=== PATIENT | female | born 1950 | race Caucasian/White ===

== ENCOUNTER 2017-10-27 07:15 | Day surgery (SDC) | payer MEDICARE, MEDICAID ==
[~2017-10-27 07:15] MED LIST: Dextrose 5%-0.45% NaCl 1,000 ML IV SCH; Midazolam 1 MG/ML 2 ML SDV ONE; Sodium Chloride 0.9% 10 ML Syringe FLUSH PRN; fentaNYL 100 MCG/2 ML SDV ONE
[2017-10-27] MEDS ORDERED: Midazolam 1 MG/ML 2 ML SDV IV ONE ×11 (07:16→08:41)
[2017-10-27] MEDS ORDERED: fentaNYL 100 MCG/2 ML SDV IV ONE ×5 (07:16→08:25)
[2017-10-27] MEDS ORDERED: Midazolam 1 MG/ML 2 ML SDV ONE (08:55)
--- NOTE | 2017-10-27 11:09 | OR ---
DATE: 10/27/2017 PROCEDURE: Incomplete colonoscopy. INSTRUMENTS USED: 1. PCF-H180 AL Olympus video colonoscope. 2. GIF-Q180 Olympus panendoscope. PREMEDICATIONS: Fentanyl 150 mcg intravenous, Versed 7 mg intravenous. Nasal O2 cannula. The procedure was done under pulse oximetry, BP recording, and cardiac monitoring. INDICATION: The patient with recent diarrhea, previous incomplete colonoscopy due to adhesions. Colonoscopic examination is done for detection of any polypoid lesions and removal, endoscopic hemostasis therapy if needed. DESCRIPTION OF PROCEDURE: Initial rectal exam showed external hemorrhoidal tags. Rigid anoscopy was normal. The colonoscope, PCF-H180 AL, was passed up to the area of distal descending colon. There marked deformity was noted preventing further advancement to visualize the proximal areas. No polyp or tumor mass identified in the visualized areas. No vascular ectasia. No large isolated ulcerations seen. No evidence of diffuse inflammatory bowel disease in the form of friability, contact bleeding, or ulcerations. The colonoscope was withdrawn, and GIF-Q180 Olympus panendoscope was introduced. The scope again could not be passed beyond distal descending colon due to significant deformity. No bleeding was noted from any of the visualized areas at the completion of examination. IMPRESSION: External hemorrhoids. The patient tolerated the procedure well. [facility] /[id number]
[2017-10-27 13:14] VITALS: BP 117/66
== END 2017-10-28 10:30 | disposition home or self-care (01) ==
LOC: DL.ENDO 07:15
PROVIDERS: ATTEND Internal Medicine Gastroenterology
DX: K64.4 Residual hemorrhoidal skin tags (principal); F41.1 Generalized anxiety disorder; F32.9 Major depressive disorder, single episode, unspecified; G89.4 Chronic pain syndrome; E11.9 Type 2 diabetes mellitus without complications; E78.5 Hyperlipidemia, unspecified; E03.9 Hypothyroidism, unspecified; M81.0 Age-related osteoporosis without current pathological fracture; E66.9 Obesity, unspecified; Z68.33 Body mass index [BMI] 33.0-33.9, adult; Z79.4 Long term (current) use of insulin; Z79.82 Long term (current) use of aspirin; Z79.891 Long term (current) use of opiate analgesic; Z79.899 Other long term (current) drug therapy; Z88.0 Allergy status to penicillin; Z88.8 Allergy status to other drugs, medicaments and biological substances
CPT/HCPCS: 45330; J2250; J3010; J7042

== ENCOUNTER 2017-12-13 09:09 | Observation (INO) | payer MEDICARE, MEDICAID ==
[~2017-12-13 09:09] MED LIST changes: +Aspirin 81 MG Tab.Chew PO ONE; -Dextrose 5%-0.45% NaCl 1,000 ML IV SCH; -Midazolam 1 MG/ML 2 ML SDV ONE; -Sodium Chloride 0.9% 10 ML Syringe FLUSH PRN; -fentaNYL 100 MCG/2 ML SDV ONE
--- NOTE | 2017-12-13 09:09 | EDM.PDOC ---
ED HPI GENERAL MEDICAL PROBLEM - General Stated Complaint: CRUSCHING CHEST PAIN Time Seen by Provider: 12/13/17 09:00 Source of Information: Reports: Patient History Limitations: Reports: No Limitations - History of Present Illness INITIAL COMMENTS - FREE TEXT/NARRATIVE: This 67 yo female patient reports to the ED with chest pain. The patient reports her symptoms started at about 0300 this morning. The patient reports she has a heaviness in her chest with sharp pains going to her posterior back ( near where her bra would snap) with deep breaths. The patient reports she lives in an assisted care center due to her diabetes. The patient reports she has had several fractures of her back, but today's symptoms seem to be much worse than normal. Onset: Today Onset Date: 12/13/17 Onset Time: 03:00 Duration: Constant, Heavy, Intermittent (sharp pains to her back with breathing) Location: Reports: Chest (heaviness), Back (sharp pains) Quality: Reports: Dull ("heaviness" to chest), Stabbing (in back) Severity: Severe Improves with: Reports: Rest Worsens with: Reports: Breathing, Movement Context: Reports: Other Associated Symptoms: Reports: Chest Pain Middle Chest Pain Score (Numeric/FACES): 8 - Related Data Allergies Allergy/AdvReac Type Severity Reaction Status Date / Time amoxicillin trihydrate Allergy Diarrhea Verified 12/13/17 09:22 [From Augmentin] potassium clavulanate Allergy Diarrhea Verified 12/13/17 09:22 [From Augmentin] lisinopril AdvReac Cough Verified 12/13/17 09:22 potassium AdvReac Diarrhea Verified 12/13/17 09:22 Ybkhvrh-Vpc-Nwd Reductase AdvReac Abdominal Verified 12/13/17 09:22 Inhibitor Pain Home Meds: Home Meds Gabapentin 900 mg PO TID 01/09/14 [History] Levothyroxine 100 mcg PO ACBRK 01/09/14 [History] Losartan [Cozaar] 12.5 mg PO DAILY 01/09/14 [History] traZODone 50 - 100 mg PO BEDTIME 01/09/14 [History] Aspirin [Ecotrin] 81 mg PO DAILY 06/01/16 [History] Docusate Sodium/Sennosides [Senna Plus] 1 tab PO BID PRN 06/01/16 [History] Insulin Glarg,Human.Rec.Analog [Lantus Solostar] 28 unit SUBCUT BEDTIME [History] Insulin Aspart [NovoLOG] 10 units SQ ACLUNCH 10/27/17 [History] Insulin Aspart [NovoLOG] 12 units SQ ACLUNCH 10/27/17 [History] Insulin Aspart [NovoLOG] 15 units SQ ACBREAKFAST 10/27/17 [History] Insulin Glarg,Human.Rec.Analog [Lantus] 10 units SQ BID 10/27/17 [History] Meloxicam [Mobic] 7.5 mg PO DAILY 10/27/17 [History] Montelukast [Singulair] 10 mg PO DAILY 10/27/17 [History] Morphine [MS Contin] 45 mg PO Q8HR 10/27/17 [History] Venlafaxine [Effexor] 112.5 mg PO DAILY 10/27/17 [History] Docusate Sodium [Colace] 100 mg PO BID 12/13/17 [History] Famotidine 20 mg PO DAILY 12/13/17 [History] L.acidoph,Paracasei, B.lactis [Probiotic] 1 cap PO DAILY 12/13/17 [History] Triamcinolone Acetonide [Triamcinolone Acetonide 0.1% Crm] 1 gm TOP BEDTIME [History] oxyCODONE 5 mg PO Q4H PRN 12/13/17 [History] Past Medical History HEENT History: Reports: Impaired Vision Other HEENT History: Glasses Cardiovascular History: Reports: None Respiratory History: Reports: None Gastrointestinal History: Reports: Chronic Constipation Genitourinary History: Reports: None Other Genitourinary History: incomplete emptying of the bladder. Needs to go twice for complete emptying. 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 lower back fracture Neurological History: Reports: Migraines, Neuropathy, Diabetic Psychiatric History: Reports: Anxiety, Depression Endocrine/Metabolic History: Reports: Diabetes, Type I, Hypothyroidism, Osteoporosis Hematologic History: Reports: None Immunologic History: Reports: None Oncologic (Cancer) History: Reports: None Dermatologic History: Reports: None - Infectious Disease History Infectious Disease History: Reports: Chicken Pox, Measles, Mumps, Pertussis ( Whooping Cough), Rubella, Shingles Other Infectious Disease History: staph infection. - Past Surgical History Endocrine Surgical History: Social & Family History - Family History Family Medical History: Unobtainable HEENT: Reports: Other (See Below) Other HEENT Family History: unklnown Other Cardiac Family History: unknown Other Respiratory Family Hisory: unknown Other GI Family History: unknown Other Family History: unknown Other OBGYN Family History: unknown Other Musculoskeletal Family History: unknown Other Neurological Family History: unkown Other Psychiatric Family History: unknown Other Endocrine/Metabolic Family History: unknown Other Hematologic Family History: unknown Other Immunologic Family History: unknown Other Dermatologic Family History: unknown Other Oncologic Family History: unknown - Caffeine Use Caffeine Use: Reports: Coffee, Soda Other Caffeine Use: AVERAGE OF 3 CUPS OF COFFEE DAILY, DAILY CAN OF CAFFIENATED SODA POP - Living Situation & Occupation Living situation: Reports: Alone Occupation: Retired ED ROS GENERAL - Review of Systems Review Of Systems: ROS reveals no pertinent complaints other than HPI. ED EXAM, GENERAL - Physical Exam Exam: See Below Exam Limited By: No Limitations General Appearance: Alert, WD/WN, Moderate Distress, Obese Eye Exam: Bilateral Eye: EOMI, Normal Inspection, PERRL Ears: Normal External Exam, Normal Canal, Hearing Grossly Normal, Normal TMs Nose: Normal Inspection, Normal Mucosa, No Blood Throat/Mouth: Normal Inspection, Normal Lips, Normal Teeth, Normal Gums, Normal Oropharynx, Normal Voice, No Airway Compromise Head: Atraumatic, Normocephalic Neck: Normal Inspection, Supple, Non-Tender, Full Range of Motion Respiratory/Chest: No Respiratory Distress, Lungs Clear, Normal Breath Sounds, No Accessory Muscle Use, Chest Non-Tender Cardiovascular: Normal Peripheral Pulses, Regular Rate, Rhythm, No Edema, No Gallop, No JVD, No Murmur, No Rub GI/Abdominal: Normal Bowel Sounds, Soft, Non-Tender, No Organomegaly, No Distention, No Abnormal Bruit, No Mass (Female) Exam: Deferred Rectal (Female) Exam: Deferred Back Exam: Normal Inspection, Full Range of Motion, NT Extremities: Normal Inspection, Normal Range of Motion, Non-Tender, Normal Capillary Refill, No Pedal Edema Neurological: Alert, Oriented, CN II-XII Intact, Normal Cognition, Normal Gait, Normal Reflexes, No Motor/Sensory Deficits Psychiatric: Normal Affect, Normal Mood Skin Exam: Warm, Dry, Intact, Normal Color, No Rash Lymphatic: No Adenopathy Course - Vital Signs Last Recorded V/S: Last Vital Signs Temp 36.7 C 12/13/17 09:09 Pulse 78 12/13/17 09:09 Resp 18 12/13/17 09:09 BP 119/65 12/13/17 09:09 Pulse Ox 93 L 12/13/17 09:09 - Orders/Labs/Meds Orders: Active Orders 24 hr Category Date Time Status EKG Documentation Completion [RC] URGENT Care 12/13/17 08:56 Active Chest w Cont [CT] Urgent Exams 12/13/17 09:37 Ordered Labs: Laboratory Tests 12/13/17 12/13/17 Range/Units 08:55 08:55 WBC 7.0 (5.0-10.0) 10^3/uL RBC 4.53 (4.2-5.4) 10^6/uL Hgb 13.7 (12.0-16.0) g/dL Hct 42.0 (37.0-47.0) % MCV 92.7 (80-100) fL MCH 30.2 (27.0-34.0) pg MCHC 32.6 L (33.0-35.0) g/dL Plt Count 255 (150-450) 10^3/uL Neut % (Auto) 53.3 (42.2-75.2) % Lymph % (Auto) 34.8 (20.5-50.1) % Hawkins % (Auto) 9.2 H (2-8) % Eos % (Auto) 2.3 (1.0-3.0) % Baso % (Auto) 0.4 (0.0-1.0) % Sodium 136 (135-145) mmol/L Potassium 3.9 (3.6-5.0) mmol/L Chloride 102 (101-111) mmol/L Carbon Dioxide 27.0 (21.0-31.0) mmol/L Anion Gap 10.9 BUN 11 (7-18) mg/dL Creatinine 0.8 (0.6-1.3) mg/dL Est Cr Clr Drug Dosing 55.68 mL/min Estimated GFR (MDRD) > 60 BUN/Creatinine Ratio 13.75 Glucose 206 H (74-105) mg/dL Calcium 9.0 (8.4-10.2) mg/dl Total Bilirubin 0.6 (0.2-1.0) mg/dL AST 35 (10-42) IU/L ALT 24 (10-60) IU/L Alkaline Phosphatase 115 (42-121) IU/L Troponin I < 0.02 (0.00-0.02) ng/ml Total Protein 7.4 (6.7-8.2) g/dl Albumin 3.6 (3.2-5.5) g/dl Globulin 3.8 Albumin/Globulin Ratio 0.95 Meds: Medications Discontinued Medications Generic Name Dose Route Start Last Admin Trade Name Freq PRN Reason Stop Dose Admin Aspirin 324 mg 12/13/17 09:05 12/13/17 09:20 Aspirin PO 12/13/17 09:06 324 mg ONETIME ONE Administration Iopamidol 100 ml 12/13/17 09:38 12/13/17 10:16 Isovue-370 (76%) IVPUSH 12/13/17 09:39 68 ml ONETIME ONE Administration Morphine Sulfate 2 mg 12/13/17 10:29 12/13/17 10:32 Morphine IVPUSH 12/13/17 10:30 2 mg ONETIME ONE Administration - Re-Assessments/Exams Free Text/Narrative Re-Assessment/Exam: 12/13/17 09:39 Discussed the lab and EKG results with the patient. An order was placed for a CT of the chest with contrast (discussed the case with Dr. Ponce). Departure - Departure Time of Disposition: 11:10 Disposition: Admitted As Inpatient 65 Condition: Fair Clinical Impression: Thoracic spine pain Care Plan Goals: Discussed the patient's history, examination, lab, EKG and CT results with Dr. Whitehead (Hospitalist with [facility] in [place]). Dr. Whitehead accepted the patient for continued evaluation and further management as an observation patient at [facility] in [place]. - My Orders Last 24 Hours: My Active Orders 12/13/17 08:56 EKG Documentation Completion [RC] URGENT 12/13/17 09:37 Chest w Cont [CT] Urgent - Assessment/Plan Last 24 Hours: My Active Orders 12/13/17 08:56 EKG Documentation Completion [RC] URGENT 12/13/17 09:37 Chest w Cont [CT] Urgent
[2017-12-13 09:20] LABS: CHLORIDE,CL 102 mmol/L (101-111); SODIUM,NA 136 mmol/L (135-145)
[2017-12-13] MEDS ORDERED: Iopamidol 755 Mg/ML 100 ML Bottle IVPUSH ONE (09:38)
[2017-12-13] MEDS ORDERED: Morphine 2 MG/ML Syringe IVPUSH ONE (10:29)
--- NOTE | 2017-12-13 11:45 | CT ---
CLINICAL HISTORY: 67-year-old hypertensive 180 pound diabetic female with history double mastectomy a nd now acute onset, severe, mid back pain. This patient also has had "multiple compression fractures lumbar spine and kyphoplasty T12". Etiology pain? SCAN TECHNIQUE: Volume acquisition of data from the chest (bony thorax/spine, lungs, and mediastinum) obtained during the intravenous infusion 68 ml nonionic Isovue 370 contrast while the patient was ly ing supine on the Siemens multislice CT scanner [place], [place] (5 cc /s via injector per protocol). All data archived in the PACS system for storage, reformatting axial/s agittal/coronal planes and study. INTERPRETATION: Abnormal. 1. Evidence T5 vertebra plasty since MRI exam dorsal spine 10 February 2016 that revealed acute T5 fractu re. (T12 vertebra plasty) 2. Chronic insufficiency fractures T4 and T6 vertebra above and below the vertebra plasty, unchanged. Mild kyphosis. 3. Generalized osteoporosis and new insufficiency fracture L1 vertebral body since MRI exam January 2016 . No spondylolisthesis. 4. Bilateral breast prostheses (collapsed on the left). No obvious rib fractures. No pneumothorax. 5. Normal cardiac size and configuration without sign of pericardial effusion. No alveolar edema or d ependent pleural effusion. 6. Normal thoracic aorta, i.e., no sign of aneurysm or dissection. 7. No intraluminal filling defect or thrombus identified in the pulmonary artery circulation. No foca l lobar infiltrate or peripheral pleural-based wedge shaped infarcts. No abnormal lobar oligemia. No atelectasis/collapse. No pneumothorax. 8. Normal gallbladder, liver, stomach, spleen and adrenal glands. Solitary small 16 mm cyst upper audie e right kidney.
[2017-12-13] MEDS ORDERED: Morphine 2 MG/ML Syringe IVPUSH PRN (11:52)
[2017-12-13] MEDS ORDERED: Morphine 15 MG Tab.ER PO SCH (12:00)
[2017-12-13] MEDS ORDERED: Non-Formulary Medication 1 Each (L.Acidoph,Paracasei, B.Lactis [Probiotic] 1 CAP) PO SCH (12:00)
[2017-12-13] MEDS ORDERED: MELOXICAM 7.5 MG PO SCH (12:00)
--- NOTE | 2017-12-13 12:14 | PCM.HP ---
H&P History of Present Illness - General Date of Service: 12/13/17 Admit Problem/Dx: Admission Diagnosis/Problem Admission Diagnosis/Problem Back pain Source of Information: Patient History Limitations: Reports: No Limitations - History of Present Illness Initial Comments - Free Text/Narative: The patient is a 67-year-old female with a past medical history of type 2 diabetes, chronic back pain s/p multiple surgeries and kyphoplasty, hypertension who presents with sharp back pain. The patient has had chronic back pain for many years. She has a flare of acute back pain this morning Pain is located in the mid back, pain is sharp, 8/10 in intensity, aggravated by movement, relieved by rest. Patient is mildly being relieved by her current pain medication She also has a sharp pain that radiates down the left leg, this is chronic. She takes gabapentin for this pain Onset of Symptoms: Reports: Today Duration of Symptoms: Reports: Day(s): (1) Location: Reports: Back Quality: Reports: Sharp Severity: Severe Improves with: Reports: Rest Worsens with: Reports: Movement Middle Chest Pain Score (Numeric/FACES): 8 - Related Data Allergies/Adverse Reactions: Allergies Allergy/AdvReac Type Severity Reaction Status Date / Time amoxicillin trihydrate Allergy Diarrhea Verified 12/13/17 11:38 [From Augmentin] potassium clavulanate Allergy Diarrhea Verified 12/13/17 11:38 [From Augmentin] lisinopril AdvReac Cough Verified 12/13/17 11:38 potassium AdvReac Diarrhea Verified 12/13/17 11:38 [id number]-Tid Reductase AdvReac Abdominal Verified 12/13/17 11:38 Inhibitor Pain Home Medications: Home Meds Gabapentin 900 mg PO TID 01/09/14 [History] Losartan [Cozaar] 12.5 mg PO DAILY 01/09/14 [History] traZODone 100 mg PO BEDTIME 01/09/14 [History] Aspirin [Ecotrin] 81 mg PO DAILY 06/01/16 [History] Insulin Glarg,Human.Rec.Analog [Lantus Solostar] 26 unit SUBCUT BEDTIME [History] Insulin Aspart [NovoLOG] 10 units SQ WITHLUNCH 10/27/17 [History] Insulin Aspart [NovoLOG] 12 units SQ WITHDINNER 10/27/17 [History] Insulin Aspart [NovoLOG] 15 units SQ WITHBREAKFAST 10/27/17 [History] Insulin Glarg,Human.Rec.Analog [Lantus] 20 units SQ WITHBREAKFAST 10/27/17 [ History] Montelukast [Singulair] 10 mg PO BEDTIME 10/27/17 [History] Docusate Sodium [Colace] 100 mg PO BID 12/13/17 [History] Famotidine 20 mg PO DAILY 12/13/17 [History] L.acidoph,Paracasei, B.lactis [Probiotic] 1 cap PO WITHLUNCH 12/13/17 [History] Levothyroxine Sodium [Levoxyl] 112 mcg PO DAILY 12/13/17 [History] Meloxicam [Mobic] 7.5 mg PO Q12H 12/13/17 [History] Morphine [MS Contin] 45 mg PO Q12H 12/13/17 [History] Triamcinolone Acetonide [Triamcinolone Acetonide 0.1% Crm] 1 gm TOP BEDTIME [History] Venlafaxine HCl [Venlafaxine ER] 150 mg PO DAILY 12/13/17 [History] oxyCODONE 5 mg PO Q4H PRN 12/13/17 [History] Past Medical History HEENT History: Reports: Impaired Vision Other HEENT History: Glasses Cardiovascular History: Reports: None Respiratory History: Reports: None Gastrointestinal History: Reports: Chronic Constipation Genitourinary History: Reports: None Other Genitourinary History: incomplete emptying of the bladder. Needs to go twice for complete emptying. [employer] History: Reports: Other OB/BYN History: Hysterectomy done 1998 Musculoskeletal History: Reports: Back Pain, Chronic, Fracture, Osteoarthritis, Osteoporosis, Other (See Below) Other Musculoskeletal History: fx T4, T7. lower back fracture Neurological History: Reports: Migraines, Neuropathy, Diabetic Psychiatric History: Reports: Anxiety, Depression Endocrine/Metabolic History: Reports: Diabetes, Type I, Hypothyroidism, Osteoporosis Hematologic History: Reports: None Immunologic History: Reports: None Oncologic (Cancer) History: Reports: None Dermatologic History: Reports: None - Infectious Disease History Infectious Disease History: Reports: Chicken Pox, Measles, Mumps, Pertussis ( Whooping Cough), Rubella, Shingles Other Infectious Disease History: staph infection. - Past Surgical History Endocrine Surgical History: Social & Family History - Family History Family Medical History: Unobtainable HEENT: Reports: Other (See Below) Other HEENT Family History: unklnown Other Cardiac Family History: unknown Other Respiratory Family Hisory: unknown Other GI Family History: unknown Other Family History: unknown Other OBGYN Family History: unknown Other Musculoskeletal Family History: unknown Other Neurological Family History: unkown Other Psychiatric Family History: unknown Other Endocrine/Metabolic Family History: unknown Other Hematologic Family History: unknown Other Immunologic Family History: unknown Other Dermatologic Family History: unknown Other Oncologic Family History: unknown - Tobacco Use Smoking Status *Q: Never Smoker Second Hand Smoke Exposure: No - Caffeine Use Caffeine Use: Reports: Coffee, Soda Other Caffeine Use: AVERAGE OF 3 CUPS OF COFFEE DAILY, DAILY CAN OF CAFFIENATED SODA POP - Recreational Drug Use Recreational Drug Use: No - Living Situation & Occupation Living situation: Reports: Alone Occupation: Retired H&P Review of Systems - Review of Systems: Review Of Systems: See Below General: Reports: No Symptoms HEENT: Reports: No Symptoms Pulmonary: Reports: No Symptoms Cardiovascular: Reports: No Symptoms Gastrointestinal: Reports: No Symptoms Genitourinary: Reports: No Symptoms Musculoskeletal: Reports: Back Pain Skin: Reports: No Symptoms Psychiatric: Reports: No Symptoms Exam - Exam Exam: See Below - Vital Signs Vital Signs: Last Vital Signs Temp 36.7 C 12/13/17 09:09 Pulse 78 12/13/17 09:09 Resp 18 12/13/17 09:09 BP 119/65 12/13/17 09:09 Pulse Ox 93 L 12/13/17 09:09 Weight: 81.647 kg - Exam General: Alert, Oriented HEENT: Conjunctiva Clear Neck: Supple Lungs: Clear to Auscultation Cardiovascular: Regular Rate, Regular Rhythm GI/Abdominal Exam: Normal Bowel Sounds - Patient Data Lab Results Last 24 hrs: Laboratory Results - last 24 hr 12/13/17 12/13/17 Range/Units 08:55 08:55 WBC 7.0 (5.0-10.0) 10^3/uL RBC 4.53 (4.2-5.4) 10^6/uL Hgb 13.7 (12.0-16.0) g/dL Hct 42.0 (37.0-47.0) % MCV 92.7 (80-100) fL MCH 30.2 (27.0-34.0) pg MCHC 32.6 L (33.0-35.0) g/dL Plt Count 255 (150-450) 10^3/uL Neut % (Auto) 53.3 (42.2-75.2) % Lymph % (Auto) 34.8 (20.5-50.1) % [place] % (Auto) 9.2 H (2-8) % Eos % (Auto) 2.3 (1.0-3.0) % Baso % (Auto) 0.4 (0.0-1.0) % Sodium 136 (135-145) mmol/L Potassium 3.9 (3.6-5.0) mmol/L Chloride 102 (101-111) mmol/L Carbon Dioxide 27.0 (21.0-31.0) mmol/L Anion Gap 10.9 BUN 11 (7-18) mg/dL Creatinine 0.8 (0.6-1.3) mg/dL Est Cr Clr Drug Dosing 55.68 mL/min Estimated GFR (MDRD) > 60 BUN/Creatinine Ratio 13.75 Glucose 206 H (74-105) mg/dL Calcium 9.0 (8.4-10.2) mg/dl Total Bilirubin 0.6 (0.2-1.0) mg/dL AST 35 (10-42) IU/L ALT 24 (10-60) IU/L Alkaline Phosphatase 115 (42-121) IU/L Troponin I < 0.02 (0.00-0.02) ng/ml Total Protein 7.4 (6.7-8.2) g/dl Albumin 3.6 (3.2-5.5) g/dl Globulin 3.8 Albumin/Globulin Ratio 0.95 Result Diagrams: 12/13/17 08:55 12/13/17 08:55 Imaging Impressions Last 24 hrs: Chest CT shows multiple chronic fractures of the thoracic vertebrae, on new L1 vertebral body fracture. Problem List Initiated/Reviewed/Updated: Yes Orders Last 24hrs: Active Orders 24 hr Category Date Time Status Patient Status [ADT] Routine ADT 12/13/17 11:52 Ordered Ambulate [RC] ASDIRECTED Care 12/13/17 11:52 Ordered Blood Glucose Check, Bedside [RC] WITHMEALSANDBED Care 12/13/17 12:04 Ordered EKG Documentation Completion [RC] URGENT Care 12/13/17 08:56 Active Height and Weight [RC] DAILY Care 12/13/17 11:52 Ordered Intake and Output [RC] QSHIFT Care 12/13/17 11:59 Ordered Oxygen Therapy [RC] PRN Care 12/13/17 11:52 Ordered Up to Chair [RC] ASDIRECTED Care 12/13/17 11:52 Ordered VTE/DVT Education [RC] PER UNIT ROUTINE Care 12/13/17 11:52 Ordered Vital Signs [RC] Q4H Care 12/13/17 11:52 Ordered PT Evaluation and Treatment [CONS] Routine Cons 12/13/17 12:04 Ordered Consistent Carbohydrate Diet [DIET] Diet 12/13/17 Lunch Ordered Aspirin [Halfprin] Med 12/14/17 09:00 Ordered 81 mg PO DAILY Docusate Sodium [Colace] Med 12/13/17 21:00 Ordered 100 mg PO BID Famotidine [Pepcid] Med 12/14/17 09:00 Ordered 20 mg PO DAILY Gabapentin [Neurontin] Med 12/13/17 14:00 Ordered 900 mg PO TID Insulin Aspart [NovoLOG] Med 12/13/17 12:00 Ordered 10 unit SUBCUT WITHLUNCH Insulin Aspart [NovoLOG] Med 12/13/17 18:00 Ordered 12 unit SUBCUT WITHDINNER Insulin Aspart [NovoLOG] Med 12/14/17 08:00 Ordered 15 unit SUBCUT WITHBREAKFAST Insulin Aspart [NovoLOG] Med 12/13/17 17:00 Ordered See Protocol SUBCUT TIDAC Insulin Glarg,Human.Rec.Analog Med 12/14/17 08:00 Ordered 20 units SQ WITHBREAKFAST Insulin Glarg,Human.Rec.Analog [Lantus Solostar] Med 12/13/17 21:00 Ordered 26 unit SUBCUT BEDTIME L.acidoph,Paracasei, B.lactis [Probiotic] Med 12/13/17 12:00 Ordered 1 cap PO WITHLUNCH Levothyroxine Med 12/14/17 09:00 Ordered 112 mcg PO DAILY Lidocaine 5% [Lidoderm 5%] Med 12/13/17 12:15 Ordered 700 mg TOP Q24H Losartan [Cozaar] Med 12/14/17 09:00 Ordered 12.5 mg PO DAILY Meloxicam [Mobic] Med 12/13/17 12:00 Ordered 7.5 mg PO Q12H Montelukast [Singulair] Med 12/13/17 21:00 Ordered 10 mg PO BEDTIME Morphine Med 12/13/17 11:52 Ordered 2 mg IVPUSH Q2H PRN Morphine [MS Contin] Med 12/13/17 12:00 Ordered 45 mg PO Q12H Triamcinolone Acetonide [Triamcinolone Acetonide 0.1% Med 12/13/17 21:00 Ordered Crm] 1 gm TOP BEDTIME Venlafaxine [Venlafaxine HCl ER] Med 12/14/17 09:00 Ordered 150 mg PO DAILY oxyCODONE Med 12/13/17 12:00 Ordered 5 mg PO Q4H PRN traZODone Med 12/13/17 21:00 Ordered 100 mg PO BEDTIME Resuscitation Status Routine Resus Stat 12/13/17 11:52 Ordered Medication Orders Aspirin (Halfprin) 81 mg PO DAILY [facility] Docusate Sodium (Colace) 100 mg PO BID [facility] Famotidine (Pepcid) 20 mg PO DAILY [facility] Gabapentin (Neurontin) 900 mg PO TID [facility] Insulin Aspart (Novolog) 10 unit SUBCUT WITHLUNCH [facility] Insulin Aspart (Novolog) 12 unit SUBCUT WITHDINNER [facility] Insulin Aspart (Novolog) 15 unit SUBCUT WITHBREAKFAST [facility] Insulin Aspart (Novolog) 0 unit SUBCUT TIDAC [facility]; Protocol Levothyroxine Sodium (Levothyroxine) 112 mcg PO DAILY [facility] Lidocaine (Lidoderm 5%) 700 mg TOP Q24H [facility] Losartan Potassium (Cozaar) 12.5 mg PO DAILY [facility] Montelukast Sodium (Singulair) 10 mg PO BEDTIME [facility] Morphine Sulfate (Morphine) 2 mg IVPUSH Q2H PRN PRN Reason: Pain (severe 7-10) Morphine Sulfate (Ms Contin) 45 mg PO Q12H [facility] Non-Formulary Medication (Insulin Glarg,Human.Rec.Analog) 20 units SQ WITHBREAKFAST [facility] Non-Formulary Medication (Insulin Glarg,Human.Rec.Analog [Lantus Solostar]) 26 unit SUBCUT BEDTIME [facility] Non-Formulary Medication (L.Acidoph,Paracasei, B.Lactis [Probiotic]) 1 cap PO WITHLUNCH [facility] Non-Formulary Medication (Meloxicam [Mobic]) 7.5 mg PO Q12H [facility] Non-Formulary Medication (Trazodone) 100 mg PO BEDTIME [facility] Oxycodone HCl (Oxycodone) 5 mg PO Q4H PRN PRN Reason: Pain Triamcinolone Acetonide (Triamcinolone Acetonide 0.1% Crm) 1 gm TOP BEDTIME [facility] Venlafaxine HCl (Venlafaxine Hcl Er) 150 mg PO DAILY [facility] Assessment/Plan Comment:: 67-year-old male with a past medical history of hypertension, hyperlipidemia, chronic back pain presents with an acute back pain flare. #Acute back pain flare Pain management: Continue MS Contin, oxycodone when necessary, add morphine IV when necessary for pain control. Start lidocaine patch. Physical therapy If pain continues, we'll recommend back brace Follow-up with neurosurgery clinic as outpatient #Diabetes mellitus, type II Accu-Cheks 3 times a day before meals and at bedtime Carbohydrate controlled diet Insulin sliding scale Continue current insulin regimen, Lantus plus lispro #Hypertension Continue losartan Monitor blood pressure #DVT prophylaxis Subcutaneous Lovenox
[2017-12-13] MEDS ORDERED: Lidocaine 5% 700 MG Patch TOP SCH (13:15)
[2017-12-13] MEDS: Enoxaparin 40 MG/0.4 ML Syringe SUBCUT SCH (13:37)
[2017-12-13] MEDS: Gabapentin 300 MG Cap PO SCH ×2 (13:38→20:54)
[2017-12-13] MEDS: Insulin Aspart 100 Units/ML 3 ML Pen SUBCUT SCH ×2 (13:41→17:09)
[2017-12-13] MEDS: Naproxen 500 MG Tab PO SCH ×2 (13:49→20:55)
[2017-12-13] MEDS ORDERED: Insulin Aspart 100 Units/ML 3 ML Pen SUBCUT SCH (18:00)
[2017-12-13] MEDS: Docusate Sodium 100 MG Cap PO SCH (20:54)
[2017-12-13] MEDS: Morphine 15 MG Tab.ER PO SCH (20:55)
[2017-12-13] MEDS ORDERED: Insulin Detemir 100 Units/ML 3 ML Pen SUBCUT SCH (21:00)
[2017-12-13] MEDS ORDERED: Montelukast 10 MG Tab PO SCH (21:00)
[2017-12-13] MEDS ORDERED: traZODone 50 MG Tab PO SCH (21:00)
[2017-12-13] MEDS ORDERED: Triamcinolone Acetonide 0.1% Crm 15 GM Tube TOP SCH (21:00)
[2017-12-14] MEDS: Lidocaine 5% 700 MG Patch TOP SCH ×2 (00:05→09:13)
[2017-12-14] MEDS ORDERED: Levothyroxine 112 MCG Tab PO SCH (06:00)
[2017-12-14] MEDS: oxyCODONE 5 MG Tab PO PRN ×2 (06:18→12:55)
[2017-12-14] MEDS ORDERED: Insulin Detemir 100 Units/ML 3 ML Pen SUBCUT SCH (08:00)
[2017-12-14] MEDS ORDERED: Insulin Aspart 100 Units/ML 3 ML Pen SUBCUT SCH (08:00)
[2017-12-14] MEDS: Insulin Aspart 100 Units/ML 3 ML Pen SUBCUT SCH ×3 (08:57→12:14)
[2017-12-14] MEDS ORDERED: Aspirin 81 MG Tab.EC PO SCH (09:00)
[2017-12-14] MEDS ORDERED: Venlafaxine 150 MG CAP.ER PO SCH (09:00)
[2017-12-14] MEDS ORDERED: Famotidine 20 MG Tab PO SCH (09:00)
[2017-12-14] MEDS ORDERED: Losartan 25 MG Tab PO SCH (09:00)
[2017-12-14] MEDS: Docusate Sodium 100 MG Cap PO SCH (09:08)
[2017-12-14] MEDS: Morphine 15 MG Tab.ER PO SCH (09:09)
[2017-12-14] MEDS: Naproxen 500 MG Tab PO SCH (09:11)
[2017-12-14] MEDS: Gabapentin 300 MG Cap PO SCH (09:12)
[2017-12-14] MEDS: Enoxaparin 40 MG/0.4 ML Syringe SUBCUT SCH (09:13)
--- NOTE | 2017-12-14 10:24 | PCM.DCSUM1 ---
Discharge Summary - Hospital Course Free Text/Narrative:: The patient is a 67-year-old female with a past medical history of type 2 diabetes, chronic back pain s/p multiple surgeries and kyphoplasty, hypertension who presents with sharp back pain. She was managed with pain medication, lidocaine patch will started which really helped with pain control. We will discharge her to lidocaine cream. Will need to follow with PCP for referral to neurosurgery clinic. - Discharge Data Discharge Date: 12/14/17 Discharge Disposition: Home, Self-Care 01 Condition: Good - Patient Summary/Data Consults: Consultations 12/13/17 12:04 PT Evaluation and Treatment [CONS] Routine Recommended Follow-up Testing/Procedures: Neurosurgery clinic follow-up - Patient Instructions Diet: Diabetic Diet Activity: Apply Ice, As Tolerated Showering/Bathing: May Shower - Discharge Plan Prescriptions/Med Rec: Lidocaine HCl [Pain Relief] 80 ml TP BID 60 Days #80 cream.ml. Home Medications: Home Meds Gabapentin 900 mg PO TID 01/09/14 [History] Losartan [Cozaar] 12.5 mg PO DAILY 01/09/14 [History] traZODone 100 mg PO BEDTIME 01/09/14 [History] Aspirin [Ecotrin] 81 mg PO DAILY 06/01/16 [History] Insulin Glarg,Human.Rec.Analog [Lantus Solostar] 26 unit SUBCUT BEDTIME [History] Insulin Aspart [NovoLOG] 10 units SQ WITHLUNCH 10/27/17 [History] Insulin Aspart [NovoLOG] 12 units SQ WITHDINNER 10/27/17 [History] Insulin Aspart [NovoLOG] 15 units SQ WITHBREAKFAST 10/27/17 [History] Insulin Glarg,Human.Rec.Analog [Lantus] 20 units SQ WITHBREAKFAST 10/27/17 [ History] Montelukast [Singulair] 10 mg PO BEDTIME 10/27/17 [History] Docusate Sodium [Colace] 100 mg PO BID 12/13/17 [History] Famotidine 20 mg PO DAILY 12/13/17 [History] L.acidoph,Paracasei, B.lactis [Probiotic] 1 cap PO WITHLUNCH 12/13/17 [History] Levothyroxine Sodium [Levoxyl] 112 mcg PO DAILY 12/13/17 [History] Meloxicam [Mobic] 7.5 mg PO Q12H 12/13/17 [History] Morphine [MS Contin] 45 mg PO Q12H 12/13/17 [History] Triamcinolone Acetonide [Triamcinolone Acetonide 0.1% Crm] 1 gm TOP BEDTIME [History] Venlafaxine HCl [Venlafaxine ER] 150 mg PO DAILY 12/13/17 [History] oxyCODONE 5 mg PO Q4H PRN 12/13/17 [History] Lidocaine HCl [Pain Relief] 80 ml TP BID 60 Days #80 cream.ml. 12/14/17 [Rx] Patient Handouts: Back Pain, Adult, [id number] - Discharge Summary/Plan Comment DC Time >30 min.: Yes - General Info Date of Service: 12/14/17 Admission Dx/Problem (Free Text: Admission Diagnosis/Problem Admission Diagnosis/Problem Back pain Subjective Update: Patient seen today. Still complains of back pain, however just got her morning medications a few minutes ago. Patient was well-controlled yesterday evening with current pain regimen. - Review of Systems General: Reports: No Symptoms HEENT: Reports: No Symptoms Pulmonary: Reports: No Symptoms Cardiovascular: Reports: No Symptoms Gastrointestinal: Reports: No Symptoms Genitourinary: Reports: No Symptoms Musculoskeletal: Reports: Back Pain - Patient Data Vitals - Most Recent: Last Vital Signs Temp 36.4 C 12/14/17 07:17 Pulse 66 12/14/17 07:17 Resp 18 12/14/17 07:17 BP 107/53 L 12/14/17 07:17 Pulse Ox 98 12/14/17 07:17 Weight - Most Recent: 81.647 kg I&O - Last 24 hours: Intake & Output 12/13/17 12/14/17 12/14/17 22:59 06:59 14:59 Intake Total 360 615 Balance 360 615 Lab Results - Last 24 hrs: Laboratory Results - last 24 hr 12/13/17 12/13/17 12/13/17 Range/Units 12:22 16:25 16:53 POC Glucose 90 52 L 119 H (70-105) mg/dl 12/13/17 12/14/17 Range/Units 20:47 08:03 POC Glucose 117 H 113 H (70-105) mg/dl Med Orders - Current: Current Medications Aspirin (Halfprin) 81 mg PO DAILY [facility] Last Admin: 12/14/17 09:12 Dose: 81 mg Docusate Sodium (Colace) 100 mg PO BID [facility] Last Admin: 12/14/17 09:08 Dose: 100 mg Enoxaparin Sodium (Lovenox) 40 mg SUBCUT DAILY [facility] Last Admin: 12/14/17 09:13 Dose: 40 mg Famotidine (Pepcid) 20 mg PO DAILY [facility] Last Admin: 12/14/17 09:12 Dose: 20 mg Gabapentin (Neurontin) 900 mg PO TID [facility] Last Admin: 12/14/17 09:12 Dose: 900 mg Insulin Aspart (Novolog) 10 unit SUBCUT WITHLUNCH [facility] Last Admin: 12/13/17 13:41 Dose: 10 units Insulin Aspart (Novolog) 12 unit SUBCUT WITHDINNER [facility] Last Admin: 12/13/17 17:55 Dose: 12 units Insulin Aspart (Novolog) 15 unit SUBCUT WITHBREAKFAST [facility] Last Admin: 12/14/17 08:50 Dose: 15 units Insulin Aspart (Novolog) 0 unit SUBCUT TIDAC [facility]; Protocol Last Admin: 12/14/17 08:57 Dose: Not Given Insulin Detemir (Levemir) 20 unit SUBCUT WITHBREAKFAST [facility] Last Admin: 12/14/17 08:48 Dose: 20 units Insulin Detemir (Levemir) 26 unit SUBCUT BEDTIME [facility] Last Admin: 12/13/17 20:51 Dose: 26 units Levothyroxine Sodium (Levothyroxine) 112 mcg PO ACBRK [facility] Last Admin: 12/14/17 05:49 Dose: 112 mcg Lidocaine (Lidoderm 5%) 700 mg TOP DAILY [facility] Last Admin: 12/14/17 09:13 Dose: 700 mg Losartan Potassium (Cozaar) 12.5 mg PO DAILY [facility] Miscellaneous Information (Remove Patch) 1 ea TRDERM BEDTIME [facility] Montelukast Sodium (Singulair) 10 mg PO BEDTIME [facility] Last Admin: 12/13/17 20:55 Dose: 10 mg Morphine Sulfate (Morphine) 2 mg IVPUSH Q2H PRN PRN Reason: Pain (severe 7-10) Last Admin: 12/13/17 13:38 Dose: 2 mg Morphine Sulfate (Ms Contin) 45 mg PO Q12H [facility] Last Admin: 12/14/17 09:09 Dose: 45 mg Naproxen (Naprosyn) 500 mg PO BID [facility] Last Admin: 12/14/17 09:11 Dose: 500 mg Oxycodone HCl (Oxycodone) 5 mg PO Q4H PRN PRN Reason: Pain Last Admin: 12/14/17 06:18 Dose: 5 mg Trazodone HCl (Trazodone) 100 mg PO BEDTIME [facility] Last Admin: 12/13/17 20:55 Dose: 100 mg Venlafaxine HCl (Venlafaxine Hcl Er) 150 mg PO DAILY [facility] Last Admin: 12/14/17 09:11 Dose: 150 mg Discontinued Medications Aspirin (Aspirin) 324 mg PO ONETIME ONE Stop: 12/13/17 09:06 Last Admin: 12/13/17 09:20 Dose: 324 mg Iopamidol (Isovue-370 (76%)) 100 ml IVPUSH ONETIME ONE Stop: 12/13/17 09:39 Last Admin: 12/13/17 10:16 Dose: 68 ml Lidocaine (Lidoderm 5%) 700 mg TOP DAILY [facility] Last Admin: 12/13/17 13:35 Dose: 700 mg Morphine Sulfate (Morphine) 2 mg IVPUSH ONETIME ONE Stop: 12/13/17 10:30 Last Admin: 12/13/17 10:32 Dose: 2 mg Morphine Sulfate (Ms Contin) 45 mg PO Q12H [facility] Last Admin: 12/13/17 13:54 Dose: Not Given Non-Formulary Medication (L.Acidoph,Paracasei, B.Lactis [Probiotic]) 1 cap PO WITHLUNCH [facility] Last Admin: 12/13/17 13:54 Dose: Not Given Non-Formulary Medication (Meloxicam [Mobic]) 7.5 mg PO Q12H [facility] Last Admin: 12/13/17 13:54 Dose: Not Given Triamcinolone Acetonide (Triamcinolone Acetonide 0.1% Crm) 1 gm TOP BEDTIME [facility] - Exam General: Reports: Alert, Oriented HEENT: Reports: Pupils Equal Neck: Reports: Supple Lungs: Reports: Clear to Auscultation Cardiovascular: Reports: Regular Rate, Regular Rhythm GI/Abdominal Exam: Normal Bowel Sounds
[2017-12-14 11:40] VITALS: BP 112/63
== END 2017-12-14 13:00 | disposition home or self-care (01) ==
LOC: DL.ED 09:09 → DL.MS 11:30 → UNDOADMOB 11:30 → DL.MS 11:52
PROVIDERS: ADMIT Hospitalist; ATTEND Hospitalist
DX: M54.9 Dorsalgia, unspecified (principal); E11.40 Type 2 diabetes mellitus with diabetic neuropathy, unspecified; G89.29 Other chronic pain; I10 Essential (primary) hypertension; K59.09 Other constipation; M19.90 Unspecified osteoarthritis, unspecified site; M81.0 Age-related osteoporosis without current pathological fracture; G43.909 Migraine, unspecified, not intractable, without status migrainosus; F41.9 Anxiety disorder, unspecified; F32.9 Major depressive disorder, single episode, unspecified; E03.9 Hypothyroidism, unspecified; E78.5 Hyperlipidemia, unspecified; Z79.899 Other long term (current) drug therapy; Z79.82 Long term (current) use of aspirin; Z79.4 Long term (current) use of insulin; Z88.1 Allergy status to other antibiotic agents; Z88.8 Allergy status to other drugs, medicaments and biological substances
CPT/HCPCS: 36415; 71260; 80053; 82962; 84484; 85025; 93005; 93010; 97162; 99284; 99285; A9270; J1650; J1815; J2270; Q9967

== ENCOUNTER 2019-03-17 04:28 | Inpatient (IN) | payer MEDICARE, MEDICAID ==
--- NOTE | 2019-03-17 04:44 | EDM.PDOC ---
"<Chao Man - Last Filed: 03/17/19 06:09> ED HPI GENERAL MEDICAL PROBLEM - General Chief Complaint: Fever Stated Complaint: AMBULANCE Time Seen by Provider: 03/17/19 04:30 Source of Information: Reports: EMS History Limitations: Reports: Other (The patient had difficulties keeping awake during assessment) - History of Present Illness INITIAL COMMENTS - FREE TEXT/NARRATIVE: This 68 yo female patient was brought to the ED by [facility] due to increased confusion and a fever. The patient arrived in the ED and is unable to answer questions due to falling asleep throughout the assessment. The patient denies any current symptoms (no pain, no cough, no urinary frequency/burning). Onset: Today Duration: Constant Location: Reports: Other Severity: Mild Improves with: Reports: None Worsens with: Reports: None Associated Symptoms: Reports: Fever/Chills (reported by assisted care center staff to EMS) Back Pain Score (Numeric/FACES): 5 - Related Data Allergies Allergy/AdvReac Type Severity Reaction Status Date / Time amoxicillin trihydrate Allergy Diarrhea Verified 03/17/19 04:59 [From Augmentin] potassium clavulanate Allergy Diarrhea Verified 03/17/19 04:59 [From Augmentin] lisinopril AdvReac Cough Verified 03/17/19 04:59 potassium AdvReac Diarrhea Verified 03/17/19 04:59 Rxaumum-Hlb-Bwe Reductase AdvReac Abdominal Verified 03/17/19 04:59 Inhibitor Pain Home Meds: Home Meds Gabapentin 1,200 mg PO TID 01/09/14 [History] Losartan [Cozaar] 12.5 mg PO DAILY 01/09/14 [History] traZODone 100 mg PO BEDTIME 01/09/14 [History] Insulin Aspart [NovoLOG] 10 units SQ TID 10/27/17 [History] Montelukast [Singulair] 10 mg PO BEDTIME 10/27/17 [History] Docusate Sodium [Colace] 100 mg PO BID PRN 12/13/17 [History] Famotidine 20 mg PO DAILY 12/13/17 [History] Levothyroxine Sodium [Levoxyl] 112 mcg PO DAILY 12/13/17 [History] Morphine [MS Contin] 45 mg PO Q12H 12/13/17 [History] Venlafaxine HCl [Venlafaxine ER] 187.5 mg PO DAILY 12/13/17 [History] oxyCODONE 10 mg PO Q4H PRN 12/13/17 [History] Acetaminophen [Tylenol Extra Strength] 1,000 mg PO TID 05/02/18 [History] Cyclobenzaprine [Flexeril] 5 mg PO TID #60 tablet 05/04/18 [Rx] Aspirin [Low Dose Aspirin EC] 81 mg PO DAILY 05/07/18 [History] Acetaminophen [Tylenol Extra Strength] 1,000 mg PO TID 03/17/19 [History] Calcium Carbonate/Vitamin D3 [Oyster Shell 500-Vit D3 200 Tb] 1 tab PO BID 03/17 [History] Insulin Glarg,Human.Rec.Analog [Lantus Solostar] 26 unit SUBCUT BEDTIME [History] Insulin Glarg,Human.Rec.Analog [Lantus] 20 units SQ WITHBREAKFAST 03/17/19 [ History] Magnesium Hydroxide [Milk of Magnesia] 15 ml PO DAILY PRN 03/17/19 [History] Meloxicam [Mobic] 7.5 mg PO Q12H PRN 03/17/19 [History] Non-Formulary Medication [NF Drug] 1 applic TOP ASDIRECTED PRN 03/17/19 [History ] Past Medical History HEENT History: Reports: Impaired Vision Other HEENT History: Glasses Cardiovascular History: Reports: None Respiratory History: Reports: None Gastrointestinal History: Reports: Chronic Constipation Genitourinary History: Reports: Urinary Incontinence Other Genitourinary History: incomplete emptying of the bladder. Needs to go twice for complete emptying. Pt wears pad at night . 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 lower back fracture Neurological History: Reports: Migraines, Neuropathy, Diabetic Psychiatric History: Reports: Anxiety, Depression Endocrine/Metabolic History: Reports: Diabetes, Type I, Hypothyroidism, Osteoporosis Hematologic History: Reports: None Immunologic History: Reports: None Oncologic (Cancer) History: Reports: None Dermatologic History: Reports: None - Infectious Disease History Infectious Disease History: Reports: Chicken Pox, Measles, Mumps Other Infectious Disease History: staph infection. - Past Surgical History Head Surgeries/Procedures: Reports: None HEENT Surgical History: Reports: None Cardiovascular Surgical History: Reports: None Respiratory Surgical History: Reports: None GI Surgical History: Reports: None Female Surgical History: Reports: Hysterectomy Endocrine Surgical History: Reports: None Musculoskeletal Surgical History: Reports: Other (See Below) Other Musculoskeletal Surgeries/Procedures:: Kyphoplasty done several times to the vertebra Social & Family History - Family History Family Medical History: Noncontributory HEENT: Reports: Other (See Below) Other HEENT Family History: unklnown Other Cardiac Family History: unknown Other Respiratory Family Hisory: unknown Other GI Family History: unknown Other Family History: unknown Other OBGYN Family History: unknown Other Musculoskeletal Family History: unknown Other Neurological Family History: unkown Other Psychiatric Family History: unknown Other Endocrine/Metabolic Family History: unknown Other Hematologic Family History: unknown Other Immunologic Family History: unknown Other Dermatologic Family History: unknown Other Oncologic Family History: unknown - Caffeine Use Caffeine Use: Reports: Coffee Other Caffeine Use: AVERAGE OF 3 CUPS OF COFFEE DAILY, DAILY CAN OF CAFFIENATED SODA POP - Living Situation & Occupation Living situation: Reports: Alone Occupation: Retired ED ROS GENERAL - Review of Systems Review Of Systems: ROS reveals no pertinent complaints other than HPI. ED EXAM, GENERAL - Physical Exam Exam: See Below General Appearance: Alert, WD/WN, No Apparent Distress, Obese Eye Exam: Bilateral Eye: EOMI, Normal Inspection, PERRL Ears: Normal External Exam, Normal Canal, Hearing Grossly Normal, Normal TMs Nose: Normal Inspection, Normal Mucosa, No Blood Throat/Mouth: Normal Inspection, Normal Lips, Normal Teeth, Normal Gums, Normal Oropharynx, Normal Voice, No Airway Compromise Head: Atraumatic, Normocephalic Neck: Normal Inspection, Supple, Non-Tender, Full Range of Motion Respiratory/Chest: No Respiratory Distress, Lungs Clear, Normal Breath Sounds, No Accessory Muscle Use, Chest Non-Tender Cardiovascular: Normal Peripheral Pulses, No Edema, No Gallop, No JVD, No Murmur , No Rub, Tachycardia GI/Abdominal: Normal Bowel Sounds, Soft, Non-Tender, No Organomegaly, No Distention, No Abnormal Bruit, No Mass (Female) Exam: Deferred Rectal (Female) Exam: Deferred Back Exam: Normal Inspection, Full Range of Motion, NT Extremities: Normal Inspection, Normal Range of Motion, Non-Tender, Normal Capillary Refill, No Pedal Edema Neurological: Alert, Oriented Psychiatric: Flat Affect Skin Exam: Warm, Dry, Intact, Normal Color, No Rash Lymphatic: No Adenopathy Course - Vital Signs Last Recorded V/S: Last Vital Signs Temp 97.1 F 03/17/19 06:12 Pulse 105 H 03/17/19 06:12 Resp 19 03/17/19 06:12 BP 103/58 L 03/17/19 06:12 Pulse Ox 94 L 03/17/19 06:12 - Orders/Labs/Meds Orders: Active Orders 24 hr Category Date Time Status Cervical Spine wo Cont [CT] Urgent Exams 03/17/19 06:09 Taken Chest 2V [CR] Urgent Exams 03/17/19 04:59 Taken Head wo Cont [CT] Urgent Exams 03/17/19 06:09 Taken CULTURE BLOOD [BC] Stat Lab 03/17/19 04:27 Received Clindamycin Phosphate [Cleocin] 900 mg Med 03/17/19 07:29 Active Sodium Chloride 0.9% [Normal Saline] 100 ml IV ONETIME Medication Orders Clindamycin Phosphate 900 mg/ (Sodium Chloride) 106 mls @ 200 mls/hr IV ONETIME ONE Stop: 03/17/19 08:00 Labs: Laboratory Tests 03/17/19 03/17/19 03/17/19 Range/Units 04:27 04:27 04:27 WBC 7.5 (5.0-10.0) 10^3/uL RBC 4.04 L (4.2-5.4) 10^6/uL Hgb 12.4 (12.0-16.0) g/dL Hct 39.6 (37.0-47.0) % MCV 98.0 (80-100) fL MCH 30.7 (27.0-34.0) pg MCHC 31.3 L (33.0-35.0) g/dL Plt Count 286 (150-450) 10^3/uL Neut % (Auto) 74.7 (42.2-75.2) % Lymph % (Auto) 16.6 L (20.5-50.1) % [place] % (Auto) 7.1 (2-8) % Eos % (Auto) 1.3 (1.0-3.0) % Baso % (Auto) 0.3 (0.0-1.0) % Sodium 135 (135-145) mmol/L Potassium 4.0 (3.6-5.0) mmol/L Chloride 98 L (101-111) mmol/L Carbon Dioxide 25.0 (21.0-31.0) mmol/L Anion Gap 16.0 BUN 13 (7-18) mg/dL Creatinine 0.9 (0.6-1.3) mg/dL Est Cr Clr Drug Dosing 50.94 mL/min Estimated GFR (MDRD) > 60 BUN/Creatinine Ratio 14.44 Glucose 193 H (74-105) mg/dL Lactic Acid 1.3 (0.5-2.2) mmol/L Calcium 8.9 (8.4-10.2) mg/dl Total Bilirubin 0.6 (0.2-1.0) mg/dL AST 34 (10-42) IU/L ALT 30 (10-60) IU/L Alkaline Phosphatase 141 H (42-121) IU/L Total Protein 7.3 (6.7-8.2) g/dl Albumin 3.7 (3.2-5.5) g/dl Globulin 3.6 Albumin/Globulin Ratio 1.03 Urine Color (YELLOW) Urine Appearance (CLEAR) Urine pH (5.0-9.0) Ur Specific [place] (1.005-1.030) Urine Protein (NEGATIVE) Urine Glucose (UA) (NEGATIVE) Urine Ketones (NEGATIVE) Urine Occult Blood (NEGATIVE) Urine Nitrite (NEGATIVE) Urine Bilirubin (NEGATIVE) Urine Urobilinogen (0.2-1.0) mg/dL Ur Leukocyte Esterase (NEGATIVE) 03/17/19 Range/Units 04:45 WBC (5.0-10.0) 10^3/uL RBC (4.2-5.4) 10^6/uL Hgb (12.0-16.0) g/dL Hct (37.0-47.0) % MCV (80-100) fL MCH (27.0-34.0) pg MCHC (33.0-35.0) g/dL Plt Count (150-450) 10^3/uL Neut % (Auto) (42.2-75.2) % Lymph % (Auto) (20.5-50.1) % [place] % (Auto) (2-8) % Eos % (Auto) (1.0-3.0) % Baso % (Auto) (0.0-1.0) % Sodium (135-145) mmol/L Potassium (3.6-5.0) mmol/L Chloride (101-111) mmol/L Carbon Dioxide (21.0-31.0) mmol/L Anion Gap BUN (7-18) mg/dL Creatinine (0.6-1.3) mg/dL Est Cr Clr Drug Dosing mL/min Estimated GFR (MDRD) BUN/Creatinine Ratio Glucose (74-105) mg/dL Lactic Acid (0.5-2.2) mmol/L Calcium (8.4-10.2) mg/dl Total Bilirubin (0.2-1.0) mg/dL AST (10-42) IU/L ALT (10-60) IU/L Alkaline Phosphatase (42-121) IU/L Total Protein (6.7-8.2) g/dl Albumin (3.2-5.5) g/dl Globulin Albumin/Globulin Ratio Urine Color Yellow (YELLOW) Urine Appearance Clear (CLEAR) Urine pH 7.5 (5.0-9.0) Ur Specific [place] 1.020 (1.005-1.030) Urine Protein Negative (NEGATIVE) Urine Glucose (UA) 100 H (NEGATIVE) Urine Ketones Negative (NEGATIVE) Urine Occult Blood Negative (NEGATIVE) Urine Nitrite Negative (NEGATIVE) Urine Bilirubin Negative (NEGATIVE) Urine Urobilinogen 0.2 (0.2-1.0) mg/dL Ur Leukocyte Esterase Negative (NEGATIVE) Meds: Medications Generic Name Dose Route Start Last Admin Trade Name Freq PRN Reason Stop Dose Admin Clindamycin Phosphate 900 mg/ 106 mls @ 200 mls/hr 03/17/19 07:29 Sodium Chloride IV 03/17/19 08:00 ONETIME ONE Discontinued Medications Generic Name Dose Route Start Last Admin Trade Name Freq PRN Reason Stop Dose Admin Ondansetron HCl 4 mg 03/17/19 04:54 03/17/19 04:59 Zofran IV 03/17/19 04:55 4 mg ONETIME ONE Administration - Re-Assessments/Exams Free Text/Narrative Re-Assessment/Exam: 03/17/19 06:10 The patient was getting out of the bed on her own when she fell to the ground hitting her head on the ground. The patient was lifted back into bed by 4 individuals. The patient reported some pain in the back of her mouth that started yesterday. A CT of her head and c-spine were ordered. Departure - Departure Disposition: Admitted As Inpatient 65 Clinical Impression: Fall from bed, initial encounter Altered mental status Qualifiers: Altered mental status type: disorientation Qualified Code(s): R41.0 - Disorientation, unspecified Pneumonia Qualifiers: Pneumonia type: aspiration pneumonia Aspiration pneumonia type: unspecified Laterality: right Lung location: lower lobe of lung Qualified Code(s): J69.0 - Pneumonitis due to inhalation of food and vomit Fever Qualifiers: Fever type: unspecified Qualified Code(s): R50.9 - Fever, unspecified - Discharge Information Forms: ED Department Discharge - My Orders Last 24 Hours: My Active Orders 03/17/19 07:29 Clindamycin Phosphate [Cleocin] 900 mg Sodium Chloride 0.9% [Normal Saline] 100 ml IV ONETIME - Assessment/Plan Last 24 Hours: My Active Orders 03/17/19 07:29 Clindamycin Phosphate [Cleocin] 900 mg Sodium Chloride 0.9% [Normal Saline] 100 ml IV ONETIME <Angel Millan - Last Filed: 03/17/19 07:46> ED HPI GENERAL MEDICAL PROBLEM - General Source of Information: Reports: Old Records, Provider (Chao BASURTO), RN, RN Notes Reviewed - History of Present Illness INITIAL COMMENTS - FREE TEXT/NARRATIVE: I assumed care of the pt from Chao BASURTO at 0700HR shift change with CT reports pending. Pt currently afebrile and now answering questions more appropriately with occasional slight confusion as to the events of the past few days. Denies pain. Admits to vomiting and choking on it yesterday or last night. Social & Family History - Living Situation & Occupation Living situation: Reports: Alone, Assisted Living Occupation: Retired ED ROS GENERAL - Review of Systems Review Of Systems: ROS reveals no pertinent complaints other than HPI. ED EXAM, GENERAL - Physical Exam Exam Limited By: No Limitations General Appearance: Alert, No Apparent Distress, Obese Eye Exam: Bilateral Eye: EOMI, Normal Inspection, PERRL Ears: Normal External Exam, Hearing Grossly Normal Nose: Normal Inspection, Normal Mucosa, No Blood Throat/Mouth: Normal Lips, Normal Oropharynx, Normal Voice, No Airway Compromise Head: Atraumatic, Normocephalic Neck: Non-Tender, Full Range of Motion, Other (C-spine cleared by CT, C-collar applied by RN after fall was removed by me at 0720HRS.) Respiratory/Chest: No Respiratory Distress, No Accessory Muscle Use, Chest Non- Tender, Decreased Breath Sounds, Rhonchi (faint rhonchi at Rt base). No: Rales , Wheezing Cardiovascular: Regular Rate, Rhythm, No Edema, Tachycardia GI/Abdominal: Other (Benign obese abdomen) Extremities: Normal Inspection, Normal Range of Motion, Non-Tender, No Pedal Edema Neurological: Alert, Oriented (to person and month), Confused (intermittent confusion to recent past events) Skin Exam: Warm, Dry, Intact, Normal Color, No Rash Course - Radiology Interpretation Free Text/Narrative:: [facility] [place] [facility] Final Radiology Report Call: [phone] assistance Online chat: [email or web address] Name: DESTIN SEGOVIA Age: 68Years F Date: 03/17/2019 SSN: -- : 1950 Study: CT HEAD WO Requesting Physician: Chao Man Images: [id number] Addl Studies: Provided Clinical History: Contrast: Without Contrast Medium: Contrast Amount: Contrast Method: Page 1 of 2 EXAM: CT Head Without Contrast EXAM DATE/TIME: 03/17/2019 6:35 AM CLINICAL HISTORY: 68 years old, female; Other: Fall from bed TECHNIQUE: Imaging protocol: Computed tomography of the head without contrast. Radiation optimization: All CT scans at this facility use at least one of these dose optimization techniques: automated exposure control; mA and/or kV adjustment per patient size (includes targeted exams where dose is matched to clinical indication); or iterative reconstruction. COMPARISON: CT Head wo Cont 01/28/2016 12:03 PM FINDINGS: Brain: There is no acute intracranial hemorrhage. There is mild lucency in the cerebral white matter, likely microvascular disease although non-specific. Solis white differentiation is intact. There are no extra-axial fluid collections. No evidence of mass. There is no mass effect or midline shift. Ventricles: The ventricles and sulci are enlarged, consistent with volume loss / atrophy. No hydrocephalus. Bones/joints: No acute fracture. Sinuses: There is no significant mucosal thickening in paranasal sinuses. No air -fluid levels. Mastoid air cells: Small amount of opacification in inferior left mastoid air cells. Soft tissues: Unremarkable as visualized. Vasculature: There is vascular calcification. IMPRESSION: DESTIN SEGOVIA | Final Radiology Report CONFIDENTIALITY STATEMENT This report is intended only for use by the referring physician, and only in accordance with law. If you received this in error, call [phone]. Page 2 of 2 1. No evidence of acute intracranial abnormality. No evidence of acute infarction, hemorrhage, or mass. 2. Atrophy and microvascular disease. Thank you for allowing us to participate in the care of your patient. Dictated and Authenticated by: Saida Vazquez MD 03/17/2019 7:10 AM Central Time ([place] & [place]) [facility] Final Radiology Report Call: [phone] assistance Online chat: [email or web address] Name: DESTIN SEGOVIA Age: 68Years F Date: 03/17/2019 SSN: -- : 1950 Study: CT SPINE CERVICAL WO Requesting Physician: Chao Man Images: [id number] Addl Studies: Provided Clinical History: Contrast: Without Contrast Medium: Contrast Amount: Contrast Method: Page 1 of 2 EXAM: CT Cervical Spine Without Contrast EXAM DATE/TIME: 03/17/2019 6:35 AM CLINICAL HISTORY: 68 years old, female; Other: Fall from bed TECHNIQUE: Imaging protocol: Computed tomography images of the cervical spine without contrast. Radiation optimization: All CT scans at this facility use at least one of these dose optimization techniques: automated exposure control; mA and/or kV adjustment per patient size (includes targeted exams where dose is matched to clinical indication); or iterative reconstruction. COMPARISON: CT - Head wo Cont 03/17/2019 6:35:58 AM FINDINGS: Vertebrae: Loss of cervical lordosis may be positional or associated with muscular spasm. Vertebral body heights are maintained. There is no fracture or dislocation. Facet joints appear well aligned. Mild degenerative changes on the facet joints and marginal osteophytes at C5-C6. There is mild right neural foraminal narrowing at C5-C6. No evidence of spinal stenosis. Discs/Spinal canal/Neural foramina: See Vertebrae Finding. Prevertebral Space: Prevertebral soft tissues appear normal. Soft tissues: Unremarkable. Lungs: There appear to be some mild groundglass opacities. Groundglass opacification is a nonspecific finding and not necessarily indicative of significant pathology, and could relate to poor inspiratory effort is seen chest x-ray. However, in the appropriate clinical setting, pulmonary edema, pneumonia, hypersensitivity pneumonitis, or various causes of alveolitis should be considered. DESTIN SEGOVIA | Final Radiology Report CONFIDENTIALITY STATEMENT This report is intended only for use by the referring physician, and only in accordance with law. If you received this in error, call [phone]. Page 2 of 2 IMPRESSION: Loss of cervical lordosis. No evidence of fracture or dislocation. Thank you for allowing us to participate in the care of your patient. Dictated and Authenticated by: Saida Vazquez MD 03/17/2019 7:19 AM Central Time ([place] & [place]) [facility] Final Radiology Report Call: [phone] assistance Online chat: [email or web address] Name: DESTIN SEGOVIA Age: 68Years F Date: 03/17/2019 SSN: -- : 1950 Study: XR CHEST 2 VIEWS FRONTAL & LAT Requesting Physician: Chao Man Images: 2 Addl Studies: Provided Clinical History: Contrast: Contrast Medium: Contrast Amount: Contrast Method: CONFIDENTIALITY STATEMENT This report is intended only for use by the referring physician, and only in accordance with law. If you received this in error, call [phone]. Page 1 of 1 EXAM: XR Chest, 2 Views EXAM DATE/TIME: 03/17/2019 5:25 AM CLINICAL HISTORY: 68 years old, female; Cough and fever TECHNIQUE: Imaging protocol: XR of the chest, 2 views. COMPARISON: CT Chest w Cont 12/13/2017 9:52 AM FINDINGS: Lungs: Poor inspiratory film. Possible right basilar pneumonia Pleural space: Unremarkable. No pleural effusion. No pneumothorax. Heart/Mediastinum: Unremarkable. No cardiomegaly. Bones/joints: Unremarkable. IMPRESSION: Possible acute right basal pneumonia Thank you for allowing us to participate in the care of your patient. Dictated and Authenticated by: Hardy Rodríguez MD 03/17/2019 6:00 AM Central Time ([place] & [place]) - Re-Assessments/Exams Free Text/Narrative Re-Assessment/Exam: 03/17/19 07:00 No specific source of pt's fever has been identified. With the altered mental status, aspiration is suspected as a possible source of the pt's fever and the finding of RLL infiltrate on the CXR rad. report. Pt will be treated empirically with Clindamycin (PCN allergic) for aspiration pneumonia. Pt will be admitted to Dr. Kirby to med. floor. *Pt more lucid at reassessment, now states that she did vomit yesterday or last night and did aspirate. Departure - Departure Time of Disposition: 07:31 (admit to Dr. Kirby) Condition: Fair - Discharge Information *PRESCRIPTION DRUG MONITORING PROGRAM REVIEWED*: No *COPY OF PRESCRIPTION DRUG MONITORING REPORT IN PATIENT GENTRY: No - My Orders Last 24 Hours: My Active Orders 03/17/19 07:29 Clindamycin Phosphate [Cleocin] 900 mg Sodium Chloride 0.9% [Normal Saline] 100 ml IV ONETIME - Assessment/Plan Last 24 Hours: My Active Orders 03/17/19 07:29 Clindamycin Phosphate [Cleocin] 900 mg Sodium Chloride 0.9% [Normal Saline] 100 ml IV ONETIME"
[2019-03-17] MEDS ORDERED: Ondansetron 4 MG/2 ML SDV IV ONE (04:54)
[2019-03-17 05:27] LABS: CHLORIDE,CL 98 mmol/L (101-111); SODIUM,NA 135 mmol/L (135-145)
[2019-03-17] MEDS ORDERED: Clindamycin Phosphate 900 MG in Sodium Chloride 0.9% 100 ML IV ONE (07:29)
[2019-03-17] MEDS ORDERED: Ondansetron 4 MG/2 ML SDV IVPUSH PRN (07:36)
[2019-03-17] MEDS ORDERED: Albuterol 0.083% 2.5 MG/3 ML Neb Soln NEB PRN (07:36)
[2019-03-17] MEDS ORDERED: Acetaminophen 325 MG Tab PO PRN (07:36)
[2019-03-17] MEDS: Sodium Chloride 0.9% 1,000 ML IV SCH ×2 (08:50→21:45)
[2019-03-17] MEDS: Famotidine 20 MG Tab PO SCH (09:10)
[2019-03-17] MEDS: Venlafaxine 37.5 MG Cap.ER PO SCH (09:10)
[2019-03-17] MEDS: Gabapentin 400 MG Cap PO SCH ×4 (09:11→21:34)
[2019-03-17] MEDS: Aspirin 81 MG Tab.EC PO SCH (09:12)
[2019-03-17] MEDS: Acetaminophen 500 MG Tab PO SCH ×4 (09:12→21:34)
[2019-03-17] MEDS: Levothyroxine 112 MCG Tab PO SCH (09:12)
[2019-03-17] MEDS: Morphine 15 MG Tab.ER PO SCH ×2 (09:13→20:12)
[2019-03-17] MEDS: Insulin Glarg,Human.Rec.Analog 100 UNIT/ML ML SUBCUT SCH ×2 (09:14→21:08)
[2019-03-17] MEDS: Insulin Lispro 100 Units/ML 3 ML Vial SUBCUT SCH ×5 (09:15→17:57)
[2019-03-17] MEDS: Losartan 25 MG Tab PO SCH (09:18)
[2019-03-17] MEDS ORDERED: Ertapenem 1 GM in Sodium Chloride 0.9% 50 ML IV SCH (10:15)
--- NOTE | 2019-03-17 10:58 | PCM.HP ---
H&P History of Present Illness - General Date of Service: 03/17/19 Admit Problem/Dx: Admission Diagnosis/Problem Admission Diagnosis/Problem Aspiration pneumonia Source of Information: EMS, Alf Records, Other History Limitations: Reports: Altered Mental Status - History of Present Illness Initial Comments - Free Text/Narative: The patient is a 68 year old female with medical history of diabetes mellitus type 2, chronic pain syndrome, osteoporosis with multiple compression fractures , hypothyroidism, depression, and hypertension. The patient resides at assisted living facility. She is not able to provide history at this point. She is confused. According to the staff of the assisted living facility symptoms have been going on for about 2 days. Has worsened over time. She was noted to be hypoxic in the emergency room. Chest x-ray was obtained and it showed bibasilar densities suggestive of infection. Has had mild cough. Urinalysis appeared normal. Patient is not able to provide any significant reliable history at this point. When the patient went for radiologic studies, she fell. Subsequently had CT scan of the head and neck. Evidence of acute fracture.Patient has been on chronic narcotic medications. Back Pain Score (Numeric/FACES): 5 - Related Data Allergies/Adverse Reactions: Allergies Allergy/AdvReac Type Severity Reaction Status Date / Time amoxicillin trihydrate Allergy Diarrhea Verified 03/17/19 08:43 [From Augmentin] potassium clavulanate Allergy Diarrhea Verified 03/17/19 08:43 [From Augmentin] lisinopril AdvReac Cough Verified 03/17/19 08:43 potassium AdvReac Diarrhea Verified 03/17/19 08:43 Pszvyqh-Afp-Uct Reductase AdvReac Abdominal Verified 03/17/19 08:43 Inhibitor Pain Home Medications: Home Meds Gabapentin 1,200 mg PO TID 01/09/14 [History] Losartan [Cozaar] 12.5 mg PO DAILY 01/09/14 [History] traZODone 100 mg PO BEDTIME 01/09/14 [History] Insulin Aspart [NovoLOG] 10 units SQ TID 10/27/17 [History] Montelukast [Singulair] 10 mg PO BEDTIME 10/27/17 [History] Docusate Sodium [Colace] 100 mg PO BID PRN 12/13/17 [History] Famotidine 20 mg PO BID 12/13/17 [History] Levothyroxine Sodium [Levoxyl] 112 mcg PO DAILY 12/13/17 [History] Morphine [MS Contin] 15 mg PO Q12H 12/13/17 [History] Venlafaxine HCl [Venlafaxine ER] 187.5 mg PO DAILY 12/13/17 [History] oxyCODONE 10 mg PO Q4H PRN 12/13/17 [History] Acetaminophen [Tylenol Extra Strength] 1,000 mg PO TID 05/02/18 [History] Cyclobenzaprine [Flexeril] 5 mg PO TID #60 tablet 05/04/18 [Rx] Aspirin [Low Dose Aspirin EC] 81 mg PO DAILY 05/07/18 [History] Calcium Carbonate/Vitamin D3 [Oyster Shell 500-Vit D3 200 Tb] 1 tab PO BID 03/17 [History] Insulin Glarg,Human.Rec.Analog [Lantus Solostar] 26 unit SUBCUT BEDTIME [History] Insulin Glarg,Human.Rec.Analog [Lantus] 20 units SQ WITHBREAKFAST 03/17/19 [ History] Magnesium Hydroxide [Milk of Magnesia] 15 ml PO DAILY PRN 03/17/19 [History] Meloxicam [Mobic] 7.5 mg PO Q12H PRN 03/17/19 [History] Morphine [MS Contin] 30 mg PO Q12H 03/17/19 [History] Non-Formulary Medication [NF Drug] 1 applic TOP ASDIRECTED PRN 03/17/19 [History ] Past Medical History HEENT History: Reports: Impaired Vision Other HEENT History: Glasses Cardiovascular History: Reports: None Respiratory History: Reports: None Gastrointestinal History: Reports: Chronic Constipation Genitourinary History: Reports: Urinary Incontinence Other Genitourinary History: incomplete emptying of the bladder. Needs to go twice for complete emptying. Pt wears pad at night . [employer] History: Reports: Other OB/BYN History: Hysterectomy done 1998 Musculoskeletal History: Reports: Back Pain, Chronic, Fracture, Osteoarthritis, Osteoporosis, Other (See Below) Other Musculoskeletal History: fx T4, T7. lower back fracture Neurological History: Reports: Migraines, Neuropathy, Diabetic Psychiatric History: Reports: Anxiety, Depression Endocrine/Metabolic History: Reports: Diabetes, Type I, Hypothyroidism, Osteoporosis Hematologic History: Reports: None Immunologic History: Reports: None Oncologic (Cancer) History: Reports: None Dermatologic History: Reports: None - Infectious Disease History Infectious Disease History: Reports: Chicken Pox, Measles, Mumps Other Infectious Disease History: staph infection. - Past Surgical History Head Surgeries/Procedures: Reports: None HEENT Surgical History: Reports: None Cardiovascular Surgical History: Reports: None Respiratory Surgical History: Reports: None GI Surgical History: Reports: None Female Surgical History: Reports: Hysterectomy Endocrine Surgical History: Reports: None Musculoskeletal Surgical History: Reports: Other (See Below) Other Musculoskeletal Surgeries/Procedures:: Kyphoplasty done several times to the vertebra Social & Family History - Family History Family Medical History: Noncontributory HEENT: Reports: Other (See Below) Other HEENT Family History: [place] Other Cardiac Family History: unknown Other Respiratory Family Hisory: unknown Other GI Family History: unknown Other Family History: unknown Other OBGYN Family History: unknown Other Musculoskeletal Family History: unknown Other Neurological Family History: unkown Other Psychiatric Family History: unknown Other Endocrine/Metabolic Family History: unknown Other Hematologic Family History: unknown Other Immunologic Family History: unknown Other Dermatologic Family History: unknown Other Oncologic Family History: unknown - Tobacco Use Smoking Status *Q: Unknown Ever Smoked - Caffeine Use Caffeine Use: Reports: Coffee Other Caffeine Use: AVERAGE OF 3 CUPS OF COFFEE DAILY, DAILY CAN OF CAFFIENATED SODA POP - Living Situation & Occupation Living situation: Reports: Alone, Assisted Living Occupation: Retired H&P Review of Systems - Review of Systems: Review Of Systems: Unable To Obtain (Patient is confused and unable to provide any reliable history at this point) Exam - Exam Exam: See Below - Vital Signs Vital Signs: Last Vital Signs Temp 36.9 C 03/17/19 07:36 Pulse 105 H 03/17/19 07:36 Resp 18 03/17/19 07:36 BP 137/72 03/17/19 09:18 Pulse Ox 93 L 03/17/19 08:51 Weight: 87.044 kg - Exam General: Lethargic, Other (Confused and intermittently disoriented) Neck: Supple, Trachea Midline, 2 Lungs: Decreased Breath Sounds Cardiovascular: Tachycardia GI/Abdominal Exam: Normal Bowel Sounds, Soft, Non-Tender, No Organomegaly, No Distention, No Abnormal Bruit, No Mass, Pelvis Stable Extremities: Normal Inspection, Normal Range of Motion, Non-Tender, No Pedal Edema, Normal Capillary Refill Skin: Warm, Dry Psychiatric: Anxious - Patient Data Lab Results Last 24 hrs: Laboratory Results - last 24 hr 03/17/19 03/17/19 03/17/19 Range/Units 04:27 04:27 04:27 WBC 7.5 (5.0-10.0) 10^3/uL RBC 4.04 L (4.2-5.4) 10^6/uL Hgb 12.4 (12.0-16.0) g/dL Hct 39.6 (37.0-47.0) % MCV 98.0 (80-100) fL MCH 30.7 (27.0-34.0) pg MCHC 31.3 L (33.0-35.0) g/dL Plt Count 286 (150-450) 10^3/uL Neut % (Auto) 74.7 (42.2-75.2) % Lymph % (Auto) 16.6 L (20.5-50.1) % Cottle % (Auto) 7.1 (2-8) % Eos % (Auto) 1.3 (1.0-3.0) % Baso % (Auto) 0.3 (0.0-1.0) % Sodium 135 (135-145) mmol/L Potassium 4.0 (3.6-5.0) mmol/L Chloride 98 L (101-111) mmol/L Carbon Dioxide 25.0 (21.0-31.0) mmol/L Anion Gap 16.0 BUN 13 (7-18) mg/dL Creatinine 0.9 (0.6-1.3) mg/dL Est Cr Clr Drug Dosing 50.94 mL/min Estimated GFR (MDRD) > 60 BUN/Creatinine Ratio 14.44 Glucose 193 H (74-105) mg/dL Lactic Acid 1.3 (0.5-2.2) mmol/L Calcium 8.9 (8.4-10.2) mg/dl Total Bilirubin 0.6 (0.2-1.0) mg/dL AST 34 (10-42) IU/L ALT 30 (10-60) IU/L Alkaline Phosphatase 141 H (42-121) IU/L Total Protein 7.3 (6.7-8.2) g/dl Albumin 3.7 (3.2-5.5) g/dl Globulin 3.6 Albumin/Globulin Ratio 1.03 Urine Color (YELLOW) Urine Appearance (CLEAR) Urine pH (5.0-9.0) Ur Specific [place] (1.005-1.030) Urine Protein (NEGATIVE) Urine Glucose (UA) (NEGATIVE) Urine Ketones (NEGATIVE) Urine Occult Blood (NEGATIVE) Urine Nitrite (NEGATIVE) Urine Bilirubin (NEGATIVE) Urine Urobilinogen (0.2-1.0) mg/dL Ur Leukocyte Esterase (NEGATIVE) 03/17/19 Range/Units 04:45 WBC (5.0-10.0) 10^3/uL RBC (4.2-5.4) 10^6/uL Hgb (12.0-16.0) g/dL Hct (37.0-47.0) % MCV (80-100) fL MCH (27.0-34.0) pg MCHC (33.0-35.0) g/dL Plt Count (150-450) 10^3/uL Neut % (Auto) (42.2-75.2) % Lymph % (Auto) (20.5-50.1) % Cottle % (Auto) (2-8) % Eos % (Auto) (1.0-3.0) % Baso % (Auto) (0.0-1.0) % Sodium (135-145) mmol/L Potassium (3.6-5.0) mmol/L Chloride (101-111) mmol/L Carbon Dioxide (21.0-31.0) mmol/L Anion Gap BUN (7-18) mg/dL Creatinine (0.6-1.3) mg/dL Est Cr Clr Drug Dosing mL/min Estimated GFR (MDRD) BUN/Creatinine Ratio Glucose (74-105) mg/dL Lactic Acid (0.5-2.2) mmol/L Calcium (8.4-10.2) mg/dl Total Bilirubin (0.2-1.0) mg/dL AST (10-42) IU/L ALT (10-60) IU/L Alkaline Phosphatase (42-121) IU/L Total Protein (6.7-8.2) g/dl Albumin (3.2-5.5) g/dl Globulin Albumin/Globulin Ratio Urine Color Yellow (YELLOW) Urine Appearance Clear (CLEAR) Urine pH 7.5 (5.0-9.0) Ur Specific [place] 1.020 (1.005-1.030) Urine Protein Negative (NEGATIVE) Urine Glucose (UA) 100 H (NEGATIVE) Urine Ketones Negative (NEGATIVE) Urine Occult Blood Negative (NEGATIVE) Urine Nitrite Negative (NEGATIVE) Urine Bilirubin Negative (NEGATIVE) Urine Urobilinogen 0.2 (0.2-1.0) mg/dL Ur Leukocyte Esterase Negative (NEGATIVE) Result Diagrams: 03/17/19 04:27 03/17/19 04:27 Problem List Initiated/Reviewed/Updated: Yes Orders Last 24hrs: Active Orders 24 hr Category Date Time Status Admission Diagnosis [ADT] Routine ADT 03/17/19 07:40 Ordered Admission Status [Patient Status] [ADT] Routine ADT 03/17/19 07:40 Active Patient Status [ADT] Routine ADT 03/17/19 07:36 Active Blood Glucose Check, Bedside [RC] TIDAC Care 03/17/19 09:27 Active Cardiac Monitoring [RC] CONTINUOUS Care 03/17/19 07:38 Active Diabetes Education [RC] Click to Edit Care 03/17/19 07:42 Active Intake and Output [RC] QSHIFT Care 03/17/19 07:38 Active Oxygen Therapy [RC] PRN Care 03/17/19 07:36 Active RT Aerosol Therapy [RC] ASDIRECTED Care 03/17/19 07:42 Active Up With Assistance [RC] ASDIRECTED Care 03/17/19 07:36 Active VTE/DVT Education [RC] PER UNIT ROUTINE Care 03/17/19 07:36 Active Vital Signs [RC] 00,04,08,12,16,20 Care 03/17/19 07:36 Active OT Evaluation and Treatment [CONS] Routine Cons 03/17/19 07:36 Active PT Evaluation and Treatment [CONS] Routine Cons 03/17/19 07:36 Active Consistent Carbohydrate Diet [DIET] Diet 03/17/19 Breakfast Active Cervical Spine wo Cont [CT] Urgent Exams 03/17/19 06:09 Taken Chest 2V [CR] Urgent Exams 03/17/19 04:59 Taken Head wo Cont [CT] Urgent Exams 03/17/19 06:09 Taken BASIC METABOLIC PANEL,BMP [CHEM] AM Lab 03/18/19 05:11 Ordered CBC W/O DIFF,HEMOGRAM [HEME] Routine Lab 03/18/19 09:30 Ordered CULTURE BLOOD [BC] Stat Lab 03/17/19 04:27 Received CULTURE SPUTUM + SMEAR [RM] Stat Lab 03/17/19 07:36 Ordered Acetaminophen [Tylenol Extra Strength] Med 03/17/19 09:00 Active 1,000 mg PO TID Acetaminophen [Tylenol] Med 03/17/19 07:36 Active 650 mg PO Q4H PRN Albuterol [Proventil Neb Soln] Med 03/17/19 07:36 Active 2.5 mg NEB Q2H PRN Aspirin [Halfprin] Med 03/17/19 09:00 Active 81 mg PO DAILY Famotidine [Pepcid] Med 03/17/19 09:00 Active 20 mg PO DAILY Gabapentin [Neurontin] Med 03/17/19 09:00 Active 1,200 mg PO TID Heparin Sodium Med 03/17/19 14:00 Active 5,000 units SUBCUT Q8HR Insulin Glarg,Human.Rec.Analog [LantUS] Med 03/17/19 08:00 Active 20 unit SUBCUT WITHBREAKFAST Insulin Glarg,Human.Rec.Analog [LantUS] Med 03/17/19 21:00 Active 26 unit SUBCUT BEDTIME Insulin Lispro [HumaLOG] Med 03/17/19 08:30 Active 10 unit SUBCUT TIDMEALS Insulin Lispro [HumaLOG] Med 03/17/19 12:00 Active See Protocol SUBCUT TIDMEALS Levothyroxine Med 03/17/19 09:00 Active 112 mcg PO DAILY Losartan [Cozaar] Med 03/17/19 09:00 Active 12.5 mg PO DAILY Montelukast [Singulair] Med 03/17/19 21:00 Active 10 mg PO BEDTIME Morphine [MS Contin] Med 03/17/19 08:00 Active 30 mg PO Q12H Ondansetron [Zofran] Med 03/17/19 07:36 Active 4 mg IVPUSH Q6H PRN Sodium Chloride 0.9% [Normal Saline] 1,000 ml Med 03/17/19 07:45 Active IV ASDIRECTED Venlafaxine [Effexor XR] Med 03/17/19 09:00 Active 187.5 mg PO DAILY cefTRIAXone [Rocephin] 1 gm Med 03/17/19 11:00 Ordered Sodium Chloride 0.9% [Normal Saline] 50 ml IV Q24H metroNIDAZOLE/Normal Saline [Flagyl 500 MG in NS 100 ML Med 03/17/19 11:00 Ordered ] 500 mg Premix Bag 100 bag IV Q8H oxyCODONE Med 03/17/19 07:45 Active 5 mg PO Q4H PRN traZODone Med 03/17/19 21:00 Active 100 mg PO BEDTIME Glucose Management Sub Q Reflex [OM.PC] Click To Edit Oth 03/17/19 07:36 Ordered Resuscitation Status Routine Resus Stat 03/17/19 07:36 Ordered Medication Orders Acetaminophen (Tylenol) 650 mg PO Q4H PRN PRN Reason: Pain (Mild 1-3)/fever Acetaminophen (Tylenol Extra Strength) 1,000 mg PO TID [facility] Last Admin: 03/17/19 09:12 Dose: 1,000 mg Albuterol (Proventil Neb Soln) 2.5 mg NEB Q2H PRN PRN Reason: shortness of breath/wheezing Aspirin (Halfprin) 81 mg PO DAILY [facility] Last Admin: 03/17/19 09:12 Dose: 81 mg Famotidine (Pepcid) 20 mg PO DAILY [facility] Last Admin: 03/17/19 09:10 Dose: 20 mg Gabapentin (Neurontin) 1,200 mg PO TID [facility] Last Admin: 03/17/19 09:11 Dose: 1,200 mg Heparin Sodium (Porcine) (Heparin Sodium) 5,000 units SUBCUT Q8HR [facility] Sodium Chloride (Normal Saline) 1,000 mls @ 125 mls/hr IV ASDIRECTED [facility] Last Admin: 03/17/19 08:50 Dose: 125 mls/hr Ceftriaxone Sodium 1 gm/ (Sodium Chloride) 50 mls @ 50 mls/hr IV Q24H [facility] Metronidazole 500 mg/ Premix 100 mls @ 100 mls/hr IV Q8H [facility] Insulin Glargine (Lantus) 26 unit SUBCUT BEDTIME [facility] Insulin Glargine (Lantus) 20 unit SUBCUT WITHBREAKFAST [facility] Last Admin: 03/17/19 09:14 Dose: 20 units Insulin Human Lispro (Humalog) 10 unit SUBCUT TIDMEALS [facility] Last Admin: 03/17/19 09:15 Dose: 10 units Insulin Human Lispro (Humalog) 0 unit SUBCUT TIDMEALS [facility]; Protocol Levothyroxine Sodium (Levothyroxine) 112 mcg PO DAILY [facility] Last Admin: 03/17/19 09:12 Dose: 112 mcg Losartan Potassium (Cozaar) 12.5 mg PO DAILY [facility] Last Admin: 03/17/19 09:18 Dose: 12.5 mg Montelukast Sodium (Singulair) 10 mg PO BEDTIME [facility] Morphine Sulfate (Ms Contin) 30 mg PO Q12H [facility] Last Admin: 03/17/19 09:13 Dose: 30 mg Ondansetron HCl (Zofran) 4 mg IVPUSH Q6H PRN PRN Reason: Nausea/Vomiting Oxycodone HCl (Oxycodone) 5 mg PO Q4H PRN PRN Reason: Pain Trazodone HCl (Trazodone) 100 mg PO BEDTIME [facility] Venlafaxine HCl (Effexor Xr) 187.5 mg PO DAILY [facility] Last Admin: 03/17/19 09:10 Dose: 187.5 mg Assessment/Plan Comment:: #. Acute encephalopathy the patient is said to be confused This is possibly due to infection in this case pneumonia. She is also on narcotic analgesics and that may be contributing. However she has been on these medications for a long time #. Possible aspiration pneumonia Mental status is altered. Chest x-ray showed basilar densities Patient is hypoxic with oxygen saturation down in the 80s #. Hypoxia Possibly due to pneumonia #. Diabetes mellitus type 2 Suboptimal control Has been on insulin therapy #. Fall The patient fell at the radiology suite CT of the head and neck ruled out acute fracture #. Chronic medical illnesses: Depression, hypothyroidism, osteoporosis, chronic pain syndrome, Continue regular medication for these Plan: Admit patient to medical floor Monitor blood sugar before meals and at bedtime Supplemental oxygen Sputum cultures Empiric antibiotics with intravenous ceftriaxone Intravenous metronidazole Gentle hydration Close hemodynamic monitoring Neuro checks.
[2019-03-17] MEDS ORDERED: cefTRIAXone 1 GM in Sodium Chloride 0.9% 100 ML IV SCH (11:00)
[2019-03-17] MEDS: cefTRIAXone 1 GM Vial IVPUSH SCH (11:23)
[2019-03-17] MEDS: metroNIDAZOLE/Normal Saline 500 MG in Premix Bag 100 BAG IV SCH ×2 (11:40→20:09)
[2019-03-17] MEDS: Heparin Sodium 5,000 Units/ML Vial SUBCUT SCH ×2 (13:50→21:36)
[2019-03-17] MEDS: oxyCODONE 5 MG Tab PO PRN (17:15)
[2019-03-17] MEDS: traZODone 50 MG Tab PO SCH (21:33)
[2019-03-17] MEDS: Montelukast 10 MG Tab PO SCH (21:33)
[2019-03-18] MEDS: oxyCODONE 5 MG Tab PO PRN (02:46)
[2019-03-18] MEDS: metroNIDAZOLE/Normal Saline 500 MG in Premix Bag 100 BAG IV SCH ×3 (04:26→21:05)
[2019-03-18] MEDS: Heparin Sodium 5,000 Units/ML Vial SUBCUT SCH ×3 (05:37→20:59)
[2019-03-18 06:59] LABS: ANION GAP 9.8; CHLORIDE,CL 106 mmol/L (101-111); SODIUM,NA 139 mmol/L (135-145)
[2019-03-18] MEDS: Insulin Lispro 100 Units/ML 3 ML Vial SUBCUT SCH ×6 (08:03→17:48)
[2019-03-18] MEDS ORDERED: Lactulose Soln 10 GM/15 ML 30 ML UD Cup PO PRN (09:13)
[2019-03-18] MEDS: Insulin Glarg,Human.Rec.Analog 100 UNIT/ML ML SUBCUT SCH ×2 (09:14→20:57)
[2019-03-18] MEDS: Venlafaxine 37.5 MG Cap.ER PO SCH (09:15)
[2019-03-18] MEDS: Levothyroxine 112 MCG Tab PO SCH (09:15)
[2019-03-18] MEDS: Famotidine 20 MG Tab PO SCH (09:15)
[2019-03-18] MEDS: Aspirin 81 MG Tab.EC PO SCH (09:15)
[2019-03-18] MEDS: Morphine 15 MG Tab.ER PO SCH ×2 (09:15→20:54)
[2019-03-18] MEDS: Acetaminophen 500 MG Tab PO SCH ×3 (09:16→20:56)
[2019-03-18] MEDS: Gabapentin 400 MG Cap PO SCH ×3 (09:16→20:55)
--- NOTE | 2019-03-18 09:30 | PCM.PN ---
- General Info Date of Service: 03/18/19 Subjective Update: The patient is feeling somewhat better today. Still feels weak and sleepy. Complains that she tends to sleep most of the time. Does have cough intermittently. No nausea and no vomiting. Has been weaned off from supplemental oxygen. - Review of Systems General: Reports: Weakness Pulmonary: Reports: No Symptoms, Cough Cardiovascular: Reports: No Symptoms Gastrointestinal: Reports: No Symptoms Musculoskeletal: Reports: Back Pain - Patient Data Vitals - Most Recent: Last Vital Signs Temp 36.8 C 03/18/19 03:04 Pulse 79 03/18/19 03:04 Resp 20 03/18/19 03:04 BP 110/65 03/18/19 03:04 Pulse Ox 84 L 03/18/19 03:04 Weight - Most Recent: 87.044 kg I&O - Last 24 Hours: Intake & Output 03/17/19 03/18/19 03/18/19 22:59 06:59 14:59 Intake Total 1655 1004 203 Balance 1655 1004 203 Lab Results Last 24 Hours: Laboratory Results - last 24 hr 03/17/19 03/17/19 03/17/19 Range/Units 08:43 11:48 16:46 WBC (5.0-10.0) 10^3/uL RBC (4.2-5.4) 10^6/uL Hgb (12.0-16.0) g/dL Hct (37.0-47.0) % MCV (80-100) fL MCH (27.0-34.0) pg MCHC (33.0-35.0) g/dL Plt Count (150-450) 10^3/uL Sodium (135-145) mmol/L Potassium (3.6-5.0) mmol/L Chloride (101-111) mmol/L Carbon Dioxide (21.0-31.0) mmol/L Anion Gap BUN (7-18) mg/dL Creatinine (0.6-1.3) mg/dL Est Cr Clr Drug Dosing mL/min Estimated GFR (MDRD) Glucose (74-105) mg/dL POC Glucose 230 H 139 H 254 H (70-105) mg/dl Calcium (8.4-10.2) mg/dl 03/17/19 03/18/19 03/18/19 Range/Units 20:50 06:10 06:10 WBC 4.3 L (5.0-10.0) 10^3/uL RBC 3.50 L (4.2-5.4) 10^6/uL Hgb 10.8 L D (12.0-16.0) g/dL Hct 35.1 L (37.0-47.0) % MCV 100.3 H (80-100) fL MCH 30.9 (27.0-34.0) pg MCHC 30.8 L (33.0-35.0) g/dL Plt Count 237 (150-450) 10^3/uL Sodium 139 (135-145) mmol/L Potassium 3.8 (3.6-5.0) mmol/L Chloride 106 (101-111) mmol/L Carbon Dioxide 27.0 (21.0-31.0) mmol/L Anion Gap 9.8 BUN 12 (7-18) mg/dL Creatinine 0.8 (0.6-1.3) mg/dL Est Cr Clr Drug Dosing 57.31 mL/min Estimated GFR (MDRD) > 60 Glucose 98 (74-105) mg/dL POC Glucose 146 H (70-105) mg/dl Calcium 8.2 L (8.4-10.2) mg/dl 03/18/19 Range/Units 07:50 WBC (5.0-10.0) 10^3/uL RBC (4.2-5.4) 10^6/uL Hgb (12.0-16.0) g/dL Hct (37.0-47.0) % MCV (80-100) fL MCH (27.0-34.0) pg MCHC (33.0-35.0) g/dL Plt Count (150-450) 10^3/uL Sodium (135-145) mmol/L Potassium (3.6-5.0) mmol/L Chloride (101-111) mmol/L Carbon Dioxide (21.0-31.0) mmol/L Anion Gap BUN (7-18) mg/dL Creatinine (0.6-1.3) mg/dL Est Cr Clr Drug Dosing mL/min Estimated GFR (MDRD) Glucose (74-105) mg/dL POC Glucose 86 (70-105) mg/dl Calcium (8.4-10.2) mg/dl Rik Results Last 24 Hours: Microbiology 03/17/19 04:27 Aerobic Blood Culture - Preliminary Blood NO GROWTH AFTER 1 DAY Anaerobic Blood Culture - Preliminary NO GROWTH AFTER 1 DAY Med Orders - Current: Current Medications Acetaminophen (Tylenol) 650 mg PO Q4H PRN PRN Reason: Pain (Mild 1-3)/fever Acetaminophen (Tylenol Extra Strength) 1,000 mg PO TID [facility] Last Admin: 03/18/19 09:16 Dose: 1,000 mg Albuterol (Proventil Neb Soln) 2.5 mg NEB Q2H PRN PRN Reason: shortness of breath/wheezing Aspirin (Halfprin) 81 mg PO DAILY [facility] Last Admin: 03/18/19 09:15 Dose: 81 mg Ceftriaxone Sodium (Rocephin) 1 gm IVPUSH Q24H [facility] Last Admin: 03/17/19 11:23 Dose: 1 gm Famotidine (Pepcid) 20 mg PO DAILY [facility] Last Admin: 03/18/19 09:15 Dose: 20 mg Gabapentin (Neurontin) 1,200 mg PO TID [facility] Last Admin: 03/18/19 09:16 Dose: 1,200 mg Heparin Sodium (Porcine) (Heparin Sodium) 5,000 units SUBCUT Q8HR [facility] Last Admin: 03/18/19 05:37 Dose: 5,000 units Metronidazole 500 mg/ Premix 100 mls @ 100 mls/hr IV Q8H [facility] Last Infusion: 03/18/19 05:32 Dose: Infused Insulin Glargine (Lantus) 26 unit SUBCUT BEDTIME [facility] Last Admin: 03/17/19 21:08 Dose: 26 units Insulin Glargine (Lantus) 20 unit SUBCUT WITHBREAKFAST [facility] Last Admin: 03/18/19 09:14 Dose: 20 units Insulin Human Lispro (Humalog) 10 unit SUBCUT TIDMEALS [facility] Last Admin: 03/18/19 09:14 Dose: 10 units Insulin Human Lispro (Humalog) 0 unit SUBCUT TIDMEALS [facility]; Protocol Last Admin: 03/18/19 08:03 Dose: Not Given Lactulose (Cephulac) 20 gm PO BID PRN PRN Reason: Constipation Levothyroxine Sodium (Levothyroxine) 112 mcg PO DAILY [facility] Last Admin: 03/18/19 09:15 Dose: 112 mcg Losartan Potassium (Cozaar) 12.5 mg PO DAILY [facility] Last Admin: 03/17/19 09:18 Dose: 12.5 mg Montelukast Sodium (Singulair) 10 mg PO BEDTIME [facility] Last Admin: 03/17/19 21:33 Dose: 10 mg Morphine Sulfate (Ms Contin) 30 mg PO Q12H [facility] Last Admin: 03/18/19 09:15 Dose: 30 mg Ondansetron HCl (Zofran) 4 mg IVPUSH Q6H PRN PRN Reason: Nausea/Vomiting Oxycodone HCl (Oxycodone) 5 mg PO Q4H PRN PRN Reason: Pain Last Admin: 03/18/19 02:46 Dose: 5 mg Trazodone HCl (Trazodone) 100 mg PO BEDTIME [facility] Last Admin: 03/17/19 21:33 Dose: 100 mg Venlafaxine HCl (Effexor Xr) 187.5 mg PO DAILY [facility] Last Admin: 03/18/19 09:15 Dose: 187.5 mg Discontinued Medications Clindamycin Phosphate 900 mg/ (Sodium Chloride) 106 mls @ 200 mls/hr IV ONETIME ONE Stop: 03/17/19 08:00 Last Admin: 03/17/19 07:48 Dose: 200 mls/hr Sodium Chloride (Normal Saline) 1,000 mls @ 75 mls/hr IV ASDIRECTED [facility] Last Admin: 03/17/19 21:45 Dose: 75 mls/hr Ertapenem 1 gm/ Sodium (Chloride) 50 mls @ 100 mls/hr IV Q24H [facility] Last Admin: 03/17/19 11:22 Dose: Not Given Ceftriaxone Sodium 1 gm/ (Sodium Chloride) 100 mls @ 100 mls/hr IV Q24H [facility] Ondansetron HCl (Zofran) 4 mg IV ONETIME ONE Stop: 03/17/19 04:55 Last Admin: 03/17/19 04:59 Dose: 4 mg - Exam General: Alert, Oriented, Cooperative Neck: Supple Lungs: Decreased Breath Sounds Cardiovascular: Regular Rate, Regular Rhythm GI/Abdominal Exam: Normal Bowel Sounds, Soft, Non-Tender, No Organomegaly, No Distention, No Abnormal Bruit, No Mass, Pelvis Stable - Problem List Review Problem List Initiated/Reviewed/Updated: Yes - My Orders Last 24 Hours: My Active Orders 03/17/19 08:30 Insulin Lispro [HumaLOG] 10 unit SUBCUT TIDMEALS 03/17/19 09:00 Acetaminophen [Tylenol Extra Strength] 1,000 mg PO TID Aspirin [Halfprin] 81 mg PO DAILY Famotidine [Pepcid] 20 mg PO DAILY Gabapentin [Neurontin] 1,200 mg PO TID Levothyroxine 112 mcg PO DAILY Losartan [Cozaar] 12.5 mg PO DAILY Venlafaxine [Effexor XR] 187.5 mg PO DAILY 03/17/19 09:27 Blood Glucose Check, Bedside [RC] QIDACANDBED 03/17/19 11:00 cefTRIAXone [Rocephin] 1 gm IVPUSH Q24H 03/17/19 12:00 Insulin Lispro [HumaLOG] See Protocol SUBCUT TIDMEALS metroNIDAZOLE/Normal Saline [Flagyl 500 MG in NS 100 ML] 500 mg Premix Bag 100 bag IV Q8H 03/17/19 14:00 Heparin Sodium 5,000 units SUBCUT Q8HR 03/17/19 21:00 Insulin Glarg,Human.Rec.Analog [LantUS] 26 unit SUBCUT BEDTIME Montelukast [Singulair] 10 mg PO BEDTIME traZODone 100 mg PO BEDTIME 03/18/19 09:13 Lactulose [Cephulac] 20 gm PO BID PRN - Plan Plan:: #. Acute encephalopathy Possibly due to infection Could also be as a result of medications Improving #. Possible aspiration pneumonia Chest x-ray showed basilar densities Intravenous ceftriaxone Intravenous metronidazole #. Hypoxia Possibly due to pneumonia Improving #. Diabetes mellitus type 2 Suboptimal control Has been on insulin therapy #. Fall The patient fell at the radiology suite CT of the head and neck ruled out acute fracture physical and occupational therapy #. Chronic medical illnesses: Depression, hypothyroidism, osteoporosis, chronic pain syndrome, Continue regular medication for these Discontinue intravenous fluids Discontinue telemetry Physical and occupational therapy Start patient on lactulose twice a day when necessary
[2019-03-18] MEDS: Losartan 25 MG Tab PO SCH (09:34)
[2019-03-18] MEDS: cefTRIAXone 1 GM Vial IVPUSH SCH (11:52)
[2019-03-18] MEDS: traZODone 50 MG Tab PO SCH (20:56)
[2019-03-18] MEDS: Montelukast 10 MG Tab PO SCH (20:56)
[2019-03-19] MEDS: metroNIDAZOLE/Normal Saline 500 MG in Premix Bag 100 BAG IV SCH ×3 (03:36→20:00)
[2019-03-19] MEDS: Heparin Sodium 5,000 Units/ML Vial SUBCUT SCH ×3 (05:47→21:19)
[2019-03-19] MEDS: Insulin Lispro 100 Units/ML 3 ML Vial SUBCUT SCH ×6 (08:50→18:14)
[2019-03-19] MEDS: Famotidine 20 MG Tab PO SCH (08:56)
[2019-03-19] MEDS: Acetaminophen 500 MG Tab PO SCH ×3 (08:56→21:21)
[2019-03-19] MEDS: Gabapentin 400 MG Cap PO SCH ×3 (08:57→21:20)
[2019-03-19] MEDS: Venlafaxine 37.5 MG Cap.ER PO SCH (08:57)
[2019-03-19] MEDS: Aspirin 81 MG Tab.EC PO SCH (08:58)
[2019-03-19] MEDS: Losartan 25 MG Tab PO SCH (08:58)
[2019-03-19] MEDS: Levothyroxine 112 MCG Tab PO SCH (08:59)
[2019-03-19] MEDS: Insulin Glarg,Human.Rec.Analog 100 UNIT/ML ML SUBCUT SCH ×2 (08:59→21:17)
[2019-03-19] MEDS: Morphine 15 MG Tab.ER PO SCH ×2 (08:59→20:00)
--- NOTE | 2019-03-19 10:45 | PCM.PN ---
- General Info Date of Service: 03/19/19 Subjective Update: The patient has no new complaint today She is still on oxygen 1 L/m Still has mild cough that is mostly unproductive Does have chronic mid back pain. It is not worse. No nausea and no vomiting - Patient Data Vitals - Most Recent: Last Vital Signs Temp 36.7 C 03/19/19 08:00 Pulse 86 03/19/19 08:00 Resp 17 03/19/19 08:00 BP 135/66 03/19/19 08:58 Pulse Ox 95 03/19/19 08:00 Weight - Most Recent: 87.044 kg I&O - Last 24 Hours: Intake & Output 03/18/19 03/19/19 03/19/19 22:59 06:59 14:59 Intake Total 100 540 200 Output Total 800 Balance -700 540 200 Lab Results Last 24 Hours: Laboratory Results - last 24 hr 03/17/19 03/18/19 03/18/19 Range/Units 04:20 11:36 16:49 POC Glucose 173 H 180 H 85 (70-105) mg/dl 03/18/19 03/19/19 Range/Units 20:28 07:57 POC Glucose 133 H 80 (70-105) mg/dl [facility] Results Last 24 Hours: Microbiology 03/19/19 07:25 Gram Stain - Final Sputum - Expectorated 03/17/19 04:27 Aerobic Blood Culture - Preliminary Blood NO GROWTH AFTER 2 DAYS Anaerobic Blood Culture - Preliminary NO GROWTH AFTER 2 DAYS Med Orders - Current: Current Medications Acetaminophen (Tylenol) 650 mg PO Q4H PRN PRN Reason: Pain (Mild 1-3)/fever Acetaminophen (Tylenol Extra Strength) 1,000 mg PO TID [facility] Last Admin: 03/19/19 08:56 Dose: 1,000 mg Albuterol (Proventil Neb Soln) 2.5 mg NEB Q2H PRN PRN Reason: shortness of breath/wheezing Aspirin (Halfprin) 81 mg PO DAILY [facility] Last Admin: 03/19/19 08:58 Dose: 81 mg Ceftriaxone Sodium (Rocephin) 1 gm IVPUSH Q24H [facility] Last Admin: 03/18/19 11:52 Dose: 1 gm Famotidine (Pepcid) 20 mg PO DAILY [facility] Last Admin: 03/19/19 08:56 Dose: 20 mg Gabapentin (Neurontin) 1,200 mg PO TID [facility] Last Admin: 03/19/19 08:57 Dose: 1,200 mg Heparin Sodium (Porcine) (Heparin Sodium) 5,000 units SUBCUT Q8HR [facility] Last Admin: 03/19/19 05:47 Dose: 5,000 units Metronidazole 500 mg/ Premix 100 mls @ 100 mls/hr IV Q8H [facility] Last Admin: 03/19/19 03:36 Dose: 100 mls/hr Insulin Glargine (Lantus) 26 unit SUBCUT BEDTIME [facility] Last Admin: 03/18/19 20:57 Dose: 26 units Insulin Glargine (Lantus) 20 unit SUBCUT WITHBREAKFAST [facility] Last Admin: 03/19/19 08:59 Dose: 20 units Insulin Human Lispro (Humalog) 10 unit SUBCUT TIDMEALS [facility] Last Admin: 03/19/19 09:01 Dose: Not Given Insulin Human Lispro (Humalog) 0 unit SUBCUT TIDMEALS [facility]; Protocol Last Admin: 03/19/19 08:50 Dose: Not Given Lactulose (Cephulac) 20 gm PO BID PRN PRN Reason: Constipation Levothyroxine Sodium (Levothyroxine) 112 mcg PO DAILY [facility] Last Admin: 03/19/19 08:59 Dose: 112 mcg Losartan Potassium (Cozaar) 12.5 mg PO DAILY [facility] Last Admin: 03/19/19 08:58 Dose: 12.5 mg Montelukast Sodium (Singulair) 10 mg PO BEDTIME [facility] Last Admin: 03/18/19 20:56 Dose: 10 mg Morphine Sulfate (Ms Contin) 30 mg PO Q12H [facility] Last Admin: 03/19/19 08:59 Dose: 30 mg Ondansetron HCl (Zofran) 4 mg IVPUSH Q6H PRN PRN Reason: Nausea/Vomiting Oxycodone HCl (Oxycodone) 5 mg PO Q4H PRN PRN Reason: Pain Last Admin: 03/18/19 02:46 Dose: 5 mg Trazodone HCl (Trazodone) 100 mg PO BEDTIME [facility] Last Admin: 03/18/19 20:56 Dose: 100 mg Venlafaxine HCl (Effexor Xr) 187.5 mg PO DAILY [facility] Last Admin: 03/19/19 08:57 Dose: 187.5 mg Discontinued Medications Clindamycin Phosphate 900 mg/ (Sodium Chloride) 106 mls @ 200 mls/hr IV ONETIME ONE Stop: 03/17/19 08:00 Last Admin: 03/17/19 07:48 Dose: 200 mls/hr Sodium Chloride (Normal Saline) 1,000 mls @ 75 mls/hr IV ASDIRECTED [facility] Last Admin: 03/17/19 21:45 Dose: 75 mls/hr Ertapenem 1 gm/ Sodium (Chloride) 50 mls @ 100 mls/hr IV Q24H [facility] Last Admin: 03/17/19 11:22 Dose: Not Given Ceftriaxone Sodium 1 gm/ (Sodium Chloride) 100 mls @ 100 mls/hr IV Q24H [facility] Ondansetron HCl (Zofran) 4 mg IV ONETIME ONE Stop: 03/17/19 04:55 Last Admin: 03/17/19 04:59 Dose: 4 mg - Exam Quality Assessment: Supplemental Oxygen General: Alert, Oriented Neck: Supple Lungs: Decreased Breath Sounds Cardiovascular: Regular Rate, Regular Rhythm GI/Abdominal Exam: Normal Bowel Sounds, Soft, Non-Tender, No Organomegaly, No Distention, No Abnormal Bruit, No Mass, Pelvis Stable - Problem List Review Problem List Initiated/Reviewed/Updated: Yes - My Orders Last 24 Hours: My Active Orders 03/19/19 07:25 CULTURE SPUTUM + SMEAR [] Stat 03/19/19 10:42 Flutter Valve Therapy [RT Chest Physiotherapy] [RC] ASDIRECTED RT Incentive Spirometry [RC] ASDIRECTED - Plan Plan:: #. Acute encephalopathy Possibly due to infection Could also be as a result of medications Improving I reduced due dose of narcotic analgesics. Patient is not having more pain. Continue intravenous antibiotics #. Possible aspiration pneumonia Chest x-ray showed basilar densities Intravenous ceftriaxone Intravenous metronidazole #. Hypoxia Possibly due to pneumonia Provide patient with incentive spirometry Provide patient with flutter valve. Wean off supplemental oxygen as tolerated Encourage increased ambulation . #. Diabetes mellitus type 2 Suboptimal control Has been on insulin therapy #. Fall The patient fell at the radiology suite CT of the head and neck ruled out acute fracture physical and occupational therapy #. Chronic medical illnesses: Depression, hypothyroidism, osteoporosis, chronic pain syndrome, Continue regular medication for these
[2019-03-19] MEDS: cefTRIAXone 1 GM Vial IVPUSH SCH (11:42)
[2019-03-19] MEDS: Montelukast 10 MG Tab PO SCH (21:20)
[2019-03-19] MEDS: traZODone 50 MG Tab PO SCH (21:20)
[2019-03-20] MEDS: Sodium Chloride 0.9% 10 ML Syringe FLUSH PRN ×3 (04:02→19:51)
[2019-03-20] MEDS: metroNIDAZOLE/Normal Saline 500 MG in Premix Bag 100 BAG IV SCH ×3 (04:02→19:51)
[2019-03-20] MEDS: oxyCODONE 5 MG Tab PO PRN ×2 (04:26→10:50)
[2019-03-20] MEDS: Heparin Sodium 5,000 Units/ML Vial SUBCUT SCH ×3 (05:47→21:12)
[2019-03-20] MEDS: Insulin Lispro 100 Units/ML 3 ML Vial SUBCUT SCH ×6 (08:12→16:51)
[2019-03-20] MEDS: Insulin Glarg,Human.Rec.Analog 100 UNIT/ML ML SUBCUT SCH (09:43)
[2019-03-20] MEDS: Morphine 15 MG Tab.ER PO SCH ×2 (09:49→19:46)
[2019-03-20] MEDS: Levothyroxine 112 MCG Tab PO SCH (09:50)
[2019-03-20] MEDS: Famotidine 20 MG Tab PO SCH (09:50)
[2019-03-20] MEDS: Aspirin 81 MG Tab.EC PO SCH (09:50)
[2019-03-20] MEDS: Losartan 25 MG Tab PO SCH (09:50)
[2019-03-20] MEDS: Acetaminophen 500 MG Tab PO SCH ×3 (09:51→21:10)
--- NOTE | 2019-03-20 10:12 | PCM.PN ---
- General Info Date of Service: 03/20/19 Subjective Update: Patient started having nausea. Vomited this morning. Also had one bout of loose stool. Patient indicates that she does not feel well. Has generalized body malaise. No fever documented. - Review of Systems General: Reports: Weakness, Malaise Pulmonary: Reports: Cough Cardiovascular: Reports: No Symptoms Gastrointestinal: Reports: No Symptoms Musculoskeletal: Reports: No Symptoms - Patient Data Vitals - Most Recent: Last Vital Signs Temp 36.3 C 03/20/19 08:00 Pulse 83 03/20/19 08:00 Resp 20 03/20/19 08:00 BP 137/73 03/20/19 09:50 Pulse Ox 93 L 03/20/19 08:00 Weight - Most Recent: 87.044 kg I&O - Last 24 Hours: Intake & Output 03/19/19 03/20/19 03/20/19 22:59 06:59 14:59 Intake Total 800 200 Output Total 1000 800 Balance -200 -600 Lab Results Last 24 Hours: Laboratory Results - last 24 hr 03/19/19 03/19/19 03/19/19 Range/Units 11:31 16:58 18:11 POC Glucose 158 H 45 L* 142 H (70-105) mg/dl 03/19/19 03/20/19 03/20/19 Range/Units 21:15 07:32 08:05 POC Glucose 279 H 57 L 91 (70-105) mg/dl [facility]ik Results Last 24 Hours: Microbiology 03/19/19 07:25 Gram Stain - Final Sputum - Expectorated Sputum Culture - Preliminary Yeast 03/17/19 04:27 Aerobic Blood Culture - Preliminary Blood NO GROWTH AFTER 3 DAYS Anaerobic Blood Culture - Preliminary NO GROWTH AFTER 3 DAYS Med Orders - Current: Current Medications Acetaminophen (Tylenol) 650 mg PO Q4H PRN PRN Reason: Pain (Mild 1-3)/fever Acetaminophen (Tylenol Extra Strength) 1,000 mg PO TID [facility] Last Admin: 03/20/19 09:51 Dose: 1,000 mg Albuterol (Proventil Neb Soln) 2.5 mg NEB Q2H PRN PRN Reason: shortness of breath/wheezing Aspirin (Halfprin) 81 mg PO DAILY [facility] Last Admin: 03/20/19 09:50 Dose: 81 mg Ceftriaxone Sodium (Rocephin) 1 gm IVPUSH Q24H [facility] Last Admin: 03/19/19 11:42 Dose: 1 gm Famotidine (Pepcid) 20 mg PO DAILY [facility] Last Admin: 03/20/19 09:50 Dose: 20 mg Gabapentin (Neurontin) 1,200 mg PO TID [facility] Last Admin: 03/19/19 21:20 Dose: 1,200 mg Heparin Sodium (Porcine) (Heparin Sodium) 5,000 units SUBCUT Q8HR [facility] Last Admin: 03/20/19 05:47 Dose: 5,000 units Metronidazole 500 mg/ Premix 100 mls @ 100 mls/hr IV Q8H [facility] Last Infusion: 03/20/19 05:50 Dose: Infused Insulin Glargine (Lantus) 20 unit SUBCUT BEDTIME [facility] Insulin Glargine (Lantus) 12 unit SUBCUT WITHBREAKFAST [facility] Insulin Human Lispro (Humalog) 10 unit SUBCUT TIDMEALS [facility] Last Admin: 03/20/19 08:12 Dose: Not Given Insulin Human Lispro (Humalog) 0 unit SUBCUT TIDMEALS [facility]; Protocol Last Admin: 03/20/19 08:12 Dose: Not Given Lactulose (Cephulac) 20 gm PO BID PRN PRN Reason: Constipation Levothyroxine Sodium (Levothyroxine) 112 mcg PO DAILY [facility] Last Admin: 03/20/19 09:50 Dose: 112 mcg Losartan Potassium (Cozaar) 12.5 mg PO DAILY [facility] Last Admin: 03/20/19 09:50 Dose: 12.5 mg Montelukast Sodium (Singulair) 10 mg PO BEDTIME [facility] Last Admin: 03/19/19 21:20 Dose: 10 mg Morphine Sulfate (Ms Contin) 30 mg PO Q12H [facility] Last Admin: 03/20/19 09:49 Dose: 30 mg Ondansetron HCl (Zofran) 4 mg IVPUSH Q6H PRN PRN Reason: Nausea/Vomiting Last Admin: 03/20/19 07:49 Dose: 4 mg Oxycodone HCl (Oxycodone) 5 mg PO Q4H PRN PRN Reason: Pain Last Admin: 03/20/19 04:26 Dose: 5 mg Sodium Chloride (Saline Flush) 10 ml FLUSH ASDIRECTED PRN PRN Reason: Keep Vein Open Last Admin: 03/20/19 07:49 Dose: 10 ml Trazodone HCl (Trazodone) 100 mg PO BEDTIME [facility] Last Admin: 03/19/19 21:20 Dose: 100 mg Venlafaxine HCl (Effexor Xr) 187.5 mg PO DAILY [facility] Last Admin: 03/19/19 08:57 Dose: 187.5 mg Discontinued Medications Clindamycin Phosphate 900 mg/ (Sodium Chloride) 106 mls @ 200 mls/hr IV ONETIME ONE Stop: 03/17/19 08:00 Last Admin: 03/17/19 07:48 Dose: 200 mls/hr Sodium Chloride (Normal Saline) 1,000 mls @ 75 mls/hr IV ASDIRECTED [facility] Last Admin: 03/17/19 21:45 Dose: 75 mls/hr Ertapenem 1 gm/ Sodium (Chloride) 50 mls @ 100 mls/hr IV Q24H [facility] Last Admin: 03/17/19 11:22 Dose: Not Given Ceftriaxone Sodium 1 gm/ (Sodium Chloride) 100 mls @ 100 mls/hr IV Q24H [facility] Insulin Glargine (Lantus) 26 unit SUBCUT BEDTIME [facility] Last Admin: 03/19/19 21:17 Dose: 26 units Insulin Glargine (Lantus) 20 unit SUBCUT WITHBREAKFAST [facility] Last Admin: 03/20/19 09:43 Dose: Not Given Ondansetron HCl (Zofran) 4 mg IV ONETIME ONE Stop: 03/17/19 04:55 Last Admin: 03/17/19 04:59 Dose: 4 mg - Exam General: Alert, Oriented, Cooperative HEENT: Pupils Equal, Pupils Reactive, EOMI, Mucous Membr. Moist/[place] Neck: Supple Lungs: Decreased Breath Sounds Cardiovascular: Regular Rate, Regular Rhythm GI/Abdominal Exam: Normal Bowel Sounds - Problem List Review Problem List Initiated/Reviewed/Updated: Yes - My Orders Last 24 Hours: My Active Orders 03/19/19 10:42 Flutter Valve Therapy [RT Chest Physiotherapy] [RC] ASDIRECTED RT Incentive Spirometry [RC] ASDIRECTED 03/19/19 14:06 Sodium Chloride 0.9% [Saline Flush] 10 ml FLUSH ASDIRECTED PRN Saline Lock Insert [OM.PC] Routine 03/20/19 21:00 Insulin Glarg,Human.Rec.Analog [LantUS] 20 unit SUBCUT BEDTIME 03/21/19 08:00 Insulin Glarg,Human.Rec.Analog [LantUS] 12 unit SUBCUT WITHBREAKFAST - Plan Plan:: #. Acute encephalopathy Possibly due to infection Could also be as a result of medications Improving I reduced due dose of narcotic analgesics. Patient is not having more pain. Continue intravenous antibiotics #. Possible aspiration pneumonia Chest x-ray showed basilar densities Intravenous ceftriaxone Intravenous metronidazole [place] is having nausea. Could be due to medication possibly metronidazole Zofran when necessary #. Hypoxia Possibly due to pneumonia Resolved . #. Diabetes mellitus type 2 Has had intermittent hypoglycemias Reduce insulin Lantus to 20 units nightly Hypoglycemia protocol #. Fall The patient fell at the radiology suite CT of the head and neck ruled out acute fracture physical and occupational therapy #. Chronic medical illnesses: Depression, hypothyroidism, osteoporosis, chronic pain syndrome, Continue regular medication for these
[2019-03-20] MEDS: Gabapentin 400 MG Cap PO SCH ×3 (10:46→21:09)
[2019-03-20] MEDS: Venlafaxine 37.5 MG Cap.ER PO SCH (10:47)
[2019-03-20] MEDS ORDERED: cefTRIAXone 1 GM in Sodium Chloride 0.9% 50 ML IV SCH (11:00)
[2019-03-20] MEDS ORDERED: cefTRIAXone 1 GM in Sodium Chloride 0.9% 100 ML IV SCH (11:00)
[2019-03-20] MEDS ORDERED: Prochlorperazine 5 MG Tab PO PRN (11:15)
[2019-03-20] MEDS: cefTRIAXone 1 GM Vial IVPUSH SCH (11:20)
[2019-03-20] MEDS: cefTRIAXone 1 GM in Sodium Chloride 0.9% 100 ML IV SCH (11:28)
[2019-03-20] MEDS ORDERED: Insulin Glarg,Human.Rec.Analog 100 UNIT/ML ML SUBCUT SCH (21:00)
[2019-03-20] MEDS: traZODone 50 MG Tab PO SCH (21:09)
[2019-03-20] MEDS: Montelukast 10 MG Tab PO SCH (21:09)
[2019-03-21] MEDS: metroNIDAZOLE/Normal Saline 500 MG in Premix Bag 100 BAG IV SCH ×2 (03:59→12:00)
[2019-03-21] MEDS: Sodium Chloride 0.9% 10 ML Syringe FLUSH PRN ×2 (03:59→11:02)
[2019-03-21] MEDS: Heparin Sodium 5,000 Units/ML Vial SUBCUT SCH (05:35)
[2019-03-21] MEDS ORDERED: Insulin Glarg,Human.Rec.Analog 100 UNIT/ML ML SUBCUT SCH ×2 (08:00)
[2019-03-21] MEDS: Insulin Lispro 100 Units/ML 3 ML Vial SUBCUT SCH ×4 (08:10→13:35)
[2019-03-21] MEDS: Famotidine 20 MG Tab PO SCH (09:00)
[2019-03-21] MEDS: Venlafaxine 37.5 MG Cap.ER PO SCH (09:01)
[2019-03-21] MEDS: Gabapentin 400 MG Cap PO SCH (09:02)
[2019-03-21] MEDS: Morphine 15 MG Tab.ER PO SCH (09:03)
[2019-03-21] MEDS: Aspirin 81 MG Tab.EC PO SCH (09:03)
[2019-03-21] MEDS: Levothyroxine 112 MCG Tab PO SCH (09:03)
[2019-03-21] MEDS: Acetaminophen 500 MG Tab PO SCH (09:04)
[2019-03-21] MEDS: Losartan 25 MG Tab PO SCH (09:04)
[2019-03-21] MEDS: cefTRIAXone 1 GM in Sodium Chloride 0.9% 100 ML IV SCH (11:02)
--- NOTE | 2019-03-21 11:06 | PCM.DCSUM1 ---
Discharge Summary - Hospital Course Free Text/Narrative:: #. Acute metabolic encephalopathy Possibly due to infection Could also be as a result of medications resolved #. Possible aspiration pneumonia Chest x-ray showed basilar densities treated with ceftriaxone, metronidazole improved will discharge on Levofloxacin #. Hypoxia, acute hypoxemic respiratory failure Possibly due to pneumonia Resolved . #. Diabetes mellitus type 2 Has had intermittent hypoglycemias cont Lantus to 20 units nightly #. Fall The patient fell at the radiology suite CT of the head and neck ruled out acute fracture did well with physical and occupational therapy #. Chronic medical illnesses: Depression, hypothyroidism, osteoporosis, chronic pain syndrome, Continue regular medication for these Diagnosis: Stroke: No - Discharge Data Discharge Date: 03/21/19 Discharge Disposition: Home, Self-Care 01 Condition: Good - Patient Summary/Data Consults: Consultations 03/17/19 07:36 OT Evaluation and Treatment [CONS] Routine PT Evaluation and Treatment [CONS] Routine - Patient Instructions Diet: Usual Diet as Tolerated Activity: As Tolerated - Discharge Plan *PRESCRIPTION DRUG MONITORING PROGRAM REVIEWED*: No *COPY OF PRESCRIPTION DRUG MONITORING REPORT IN PATIENT GENTRY: No Prescriptions/Med Rec: levoFLOXacin [Levaquin] 500 mg PO DAILY #5 tab Home Medications: Home Meds Gabapentin 1,200 mg PO TID 01/09/14 [History] Losartan [Cozaar] 12.5 mg PO DAILY 01/09/14 [History] traZODone 100 mg PO BEDTIME 01/09/14 [History] Insulin Aspart [NovoLOG] 10 units SQ TID 10/27/17 [History] Montelukast [Singulair] 10 mg PO BEDTIME 10/27/17 [History] Docusate Sodium [Colace] 100 mg PO BID PRN 12/13/17 [History] Famotidine 20 mg PO BID 12/13/17 [History] Levothyroxine Sodium [Levoxyl] 112 mcg PO DAILY 12/13/17 [History] Morphine [MS Contin] 15 mg PO Q12H 12/13/17 [History] Venlafaxine HCl [Venlafaxine ER] 187.5 mg PO DAILY 12/13/17 [History] oxyCODONE 10 mg PO Q4H PRN 12/13/17 [History] Acetaminophen [Tylenol Extra Strength] 1,000 mg PO TID 05/02/18 [History] Cyclobenzaprine [Flexeril] 5 mg PO TID #60 tablet 05/04/18 [Rx] Aspirin [Low Dose Aspirin EC] 81 mg PO DAILY 05/07/18 [History] Calcium Carbonate/Vitamin D3 [Oyster Shell 500-Vit D3 200 Tb] 1 tab PO BID 03/17 [History] Insulin Glarg,Human.Rec.Analog [Lantus Solostar] 26 unit SUBCUT BEDTIME [History] Insulin Glarg,Human.Rec.Analog [Lantus] 20 units SQ WITHBREAKFAST 03/17/19 [ History] Magnesium Hydroxide [Milk of Magnesia] 15 ml PO DAILY PRN 03/17/19 [History] Meloxicam [Mobic] 7.5 mg PO Q12H PRN 03/17/19 [History] Morphine [MS Contin] 30 mg PO Q12H 03/17/19 [History] Non-Formulary Medication [NF Drug] 1 applic TOP ASDIRECTED PRN 03/17/19 [History ] levoFLOXacin [Levaquin] 500 mg PO DAILY #5 tab 03/21/19 [Rx] Oxygen Therapy Mode: Room Air Patient Handouts: Aspiration Pneumonia Referrals: PCP,None [Primary Care Provider] - - Discharge Summary/Plan Comment DC Time >30 min.: No - General Info Date of Service: 03/21/19 Admission Dx/Problem (Free Text: Admission Diagnosis/Problem Admission Diagnosis/Problem Aspiration pneumonia Subjective Update: no fever, no chills, alert and oriented. Appear strong, ambulating. Functional Status: Reports: Tolerating Diet - Review of Systems Pulmonary: Denies: Shortness of Breath Cardiovascular: Denies: Chest Pain, Edema Gastrointestinal: Reports: Other (2 BMs yesterday) Genitourinary: Denies: Dysuria Neurological: Denies: Confusion, Dizziness Psychiatric: Denies: Depression - Patient Data Vitals - Most Recent: Last Vital Signs Temp 37.0 C 03/21/19 07:30 Pulse 85 03/21/19 07:30 Resp 18 03/21/19 07:30 BP 128/60 03/21/19 09:04 Pulse Ox 93 L 03/21/19 07:30 Weight - Most Recent: 87.044 kg I&O - Last 24 hours: Intake & Output 03/20/19 03/21/19 03/21/19 22:59 06:59 14:59 Intake Total 1150 200 150 Output Total 1900 700 Balance -750 -500 150 Lab Results - Last 24 hrs: Laboratory Results - last 24 hr 03/20/19 03/20/19 03/20/19 Range/Units 11:01 16:37 21:01 POC Glucose 185 H 84 222 H (70-105) mg/dl 03/21/19 Range/Units 07:32 POC Glucose 247 H (70-105) mg/dl [facility] Results - Last 24 hrs: Microbiology 03/19/19 07:25 Gram Stain - Final Sputum - Expectorated Sputum Culture - Preliminary Yeast Med Orders - Current: Current Medications Acetaminophen (Tylenol) 650 mg PO Q4H PRN PRN Reason: Pain (Mild 1-3)/fever Acetaminophen (Tylenol Extra Strength) 1,000 mg PO TID [facility] Last Admin: 03/21/19 09:04 Dose: 1,000 mg Albuterol (Proventil Neb Soln) 2.5 mg NEB Q2H PRN PRN Reason: shortness of breath/wheezing Aspirin (Halfprin) 81 mg PO DAILY [facility] Last Admin: 03/21/19 09:03 Dose: 81 mg Famotidine (Pepcid) 20 mg PO DAILY [facility] Last Admin: 03/21/19 09:00 Dose: 20 mg Gabapentin (Neurontin) 1,200 mg PO TID [facility] Last Admin: 03/21/19 09:02 Dose: 1,200 mg Heparin Sodium (Porcine) (Heparin Sodium) 5,000 units SUBCUT Q8HR [facility] Last Admin: 03/21/19 05:35 Dose: 5,000 units Metronidazole 500 mg/ Premix 100 mls @ 100 mls/hr IV Q8H [facility] Last Infusion: 03/21/19 05:05 Dose: Infused Ceftriaxone Sodium 1 gm/ (Sodium Chloride) 100 mls @ 100 mls/hr IV Q24H [facility] Last Admin: 03/21/19 11:02 Dose: 100 mls/hr Insulin Glargine (Lantus) 20 unit SUBCUT BEDTIME [facility] Last Admin: 03/20/19 21:07 Dose: 20 units Insulin Glargine (Lantus) 20 unit SUBCUT WITHBREAKFAST [facility] Last Admin: 03/21/19 08:11 Dose: 20 units Insulin Human Lispro (Humalog) 10 unit SUBCUT TIDMEALS [facility] Last Admin: 03/21/19 08:10 Dose: 10 units Insulin Human Lispro (Humalog) 0 unit SUBCUT TIDMEALS [facility]; Protocol Last Admin: 03/21/19 08:11 Dose: 4 units Lactulose (Cephulac) 20 gm PO BID PRN PRN Reason: Constipation Levothyroxine Sodium (Levothyroxine) 112 mcg PO DAILY [facility] Last Admin: 03/21/19 09:03 Dose: 112 mcg Losartan Potassium (Cozaar) 12.5 mg PO DAILY [facility] Last Admin: 03/21/19 09:04 Dose: 12.5 mg Montelukast Sodium (Singulair) 10 mg PO BEDTIME [facility] Last Admin: 03/20/19 21:09 Dose: 10 mg Morphine Sulfate (Ms Contin) 30 mg PO Q12H [facility] Last Admin: 03/21/19 09:03 Dose: 30 mg Ondansetron HCl (Zofran) 4 mg IVPUSH Q6H PRN PRN Reason: Nausea/Vomiting Last Admin: 03/20/19 07:49 Dose: 4 mg Oxycodone HCl (Oxycodone) 5 mg PO Q4H PRN PRN Reason: Pain Last Admin: 03/20/19 10:50 Dose: 5 mg Prochlorperazine Maleate (Compazine) 5 mg PO Q6HR PRN PRN Reason: Nausea/Vomiting Last Admin: 03/20/19 11:32 Dose: 5 mg Sodium Chloride (Saline Flush) 10 ml FLUSH ASDIRECTED PRN PRN Reason: Keep Vein Open Last Admin: 03/21/19 11:02 Dose: 10 ml Trazodone HCl (Trazodone) 100 mg PO BEDTIME [facility] Last Admin: 03/20/19 21:09 Dose: 100 mg Venlafaxine HCl (Effexor Xr) 187.5 mg PO DAILY [facility] Last Admin: 03/21/19 09:01 Dose: 187.5 mg Discontinued Medications Ceftriaxone Sodium (Rocephin) 1 gm IVPUSH Q24H [facility] Last Admin: 03/20/19 11:20 Dose: Not Given Clindamycin Phosphate 900 mg/ (Sodium Chloride) 106 mls @ 200 mls/hr IV ONETIME ONE Stop: 03/17/19 08:00 Last Admin: 03/17/19 07:48 Dose: 200 mls/hr Sodium Chloride (Normal Saline) 1,000 mls @ 75 mls/hr IV ASDIRECTED [facility] Last Admin: 03/17/19 21:45 Dose: 75 mls/hr Ertapenem 1 gm/ Sodium (Chloride) 50 mls @ 100 mls/hr IV Q24H [facility] Last Admin: 03/17/19 11:22 Dose: Not Given Ceftriaxone Sodium 1 gm/ (Sodium Chloride) 100 mls @ 100 mls/hr IV Q24H [facility] Ceftriaxone Sodium 1 gm/ (Sodium Chloride) 100 mls @ 100 mls/hr IV Q24H [facility] Last Admin: 03/20/19 11:24 Dose: Not Given Insulin Glargine (Lantus) 26 unit SUBCUT BEDTIME [facility] Last Admin: 03/19/19 21:17 Dose: 26 units Insulin Glargine (Lantus) 20 unit SUBCUT WITHBREAKFAST [facility] Last Admin: 03/20/19 09:43 Dose: Not Given Insulin Glargine (Lantus) 12 unit SUBCUT WITHBREAKFAST [facility] Ondansetron HCl (Zofran) 4 mg IV ONETIME ONE Stop: 03/17/19 04:55 Last Admin: 03/17/19 04:59 Dose: 4 mg - Exam General: Reports: Alert, Oriented Lungs: Reports: Clear to Auscultation, Normal Respiratory Effort Cardiovascular: Reports: Regular Rate, Regular Rhythm GI/Abdominal Exam: Normal Bowel Sounds, Soft, Non-Tender, No Distention Extremities: No Pedal Edema Skin: Reports: Warm, Dry Psy/Mental Status: Reports: Alert, Normal Affect, Normal Mood
[2019-03-21 11:49] VITALS: BP 125/71
== END 2019-03-21 13:30 | disposition home or self-care (01) | DRG 177 ==
LOC: DL.ED 04:28 → DL.MS 07:40
PROVIDERS: ADMIT Hospitalist; ATTEND Internal Medicine
DX: J69.0 Pneumonitis due to inhalation of food and vomit (principal); G93.41 Metabolic encephalopathy; R41.0 Disorientation, unspecified; W06.XXXA Fall from bed, initial encounter; Y92.9 Unspecified place or not applicable; J96.01 Acute respiratory failure with hypoxia; K59.00 Constipation, unspecified; R32 Unspecified urinary incontinence; G89.29 Other chronic pain; E11.649 Type 2 diabetes mellitus with hypoglycemia without coma; F32.9 Major depressive disorder, single episode, unspecified; M81.0 Age-related osteoporosis without current pathological fracture; E11.9 Type 2 diabetes mellitus without complications; G89.4 Chronic pain syndrome; E03.9 Hypothyroidism, unspecified; I10 Essential (primary) hypertension; H54.7 Unspecified visual loss; M19.90 Unspecified osteoarthritis, unspecified site; G43.909 Migraine, unspecified, not intractable, without status migrainosus; K59.09 Other constipation; Z79.890 Hormone replacement therapy; E11.40 Type 2 diabetes mellitus with diabetic neuropathy, unspecified; F41.9 Anxiety disorder, unspecified; M54.9 Dorsalgia, unspecified; Z99.81 Dependence on supplemental oxygen; Z79.4 Long term (current) use of insulin; Z79.82 Long term (current) use of aspirin; Z79.899 Other long term (current) drug therapy; Z88.0 Allergy status to penicillin; Z88.8 Allergy status to other drugs, medicaments and biological substances; Z90.710 Acquired absence of both cervix and uterus; Z88.1 Allergy status to other antibiotic agents
CPT/HCPCS: 36415; 70450; 71046; 72125; 80053; 81003; 82962; 83605; 85025; 87040; 96374; 99285; J2405; 80048; 85027; 87070; 87205; 94010; 94667; 94760; 97161-GP; 97165-GO; A9270-GY; J0696; J1644; J1815; J1815-GY; J3490; J7030; J7050; Q0164

== ENCOUNTER 2019-04-26 17:38 | Emergency (ER) | payer MEDICARE, MEDICAID ==
[2019-04-26 17:48] VITALS: BP 118/87; PULSE 97
[2019-04-26] MEDS ORDERED: Sodium Chloride 0.9% 10 ML Syringe FLUSH PRN (18:00)
--- NOTE | 2019-04-26 18:50 | EDM.PDOC ---
Scribed by [address] Dey 04/26/19 1839 for Angel Millan MD <Angel Millan - Last Filed: 04/26/19 18:50> ED HPI GENERAL MEDICAL PROBLEM - General Chief Complaint: General Stated Complaint: AMBULANCE Time Seen by Provider: 04/26/19 17:53 Source of Information: Reports: Patient, EMS, EMS Notes Reviewed, RN, RN Notes Reviewed History Limitations: Reports: No Limitations - History of Present Illness INITIAL COMMENTS - FREE TEXT/NARRATIVE: Patient presents to ER by [facility] crying, calling out for "Aurelio" states it's her brother. She is unsure as to why she is here. Pt states she had a friend in apartment to visit, and the friend was concerned about the pt's anxiety and behavior so the friend abruptly left which upset the pt. The next thing the pt can remember the ambulance was there getting her out of her bed. Pt reports chronic pain in the back and knees. Pt's brother "Misael" and cjccyl-qz-qil "Juliet" live nearby the pt and they report the pt has been progressively showing signs of memory loss, confusion, and episode of irrational behavior. The family is also concerned that the pt is on very strong pain medications such as Morphine. Pt is unable to provide any further history herself. The brother reports that recently the pt got lost in her own apartment and wandered down the [place] to a neighbor's apartment because she could not find her own bathroom. Onset: Unknown/Unsure Location: Reports: Generalized Severity: Severe Improves with: Reports: None Worsens with: Reports: None Associated Symptoms: Reports: No Other Symptoms Left Leg Pain Score (Numeric/FACES): 8 - Related Data Allergies Allergy/AdvReac Type Severity Reaction Status Date / Time amoxicillin trihydrate Allergy Diarrhea Verified 04/26/19 18:49 [From Augmentin] potassium clavulanate Allergy Diarrhea Verified 04/26/19 18:49 [From Augmentin] lisinopril AdvReac Cough Verified 04/26/19 18:49 potassium AdvReac Diarrhea Verified 04/26/19 18:49 Rvtkucc-Ytv-Mnt Reductase AdvReac Abdominal Verified 04/26/19 18:49 Inhibitor Pain Home Meds: Home Meds Gabapentin 1,200 mg PO TID 01/09/14 [History] Losartan [Cozaar] 12.5 mg PO DAILY 01/09/14 [History] traZODone 100 mg PO BEDTIME 01/09/14 [History] Insulin Aspart [NovoLOG] 10 units SQ TID 10/27/17 [History] Montelukast [Singulair] 10 mg PO BEDTIME 10/27/17 [History] Docusate Sodium [Colace] 100 mg PO BID PRN 12/13/17 [History] Famotidine 20 mg PO BID 12/13/17 [History] Levothyroxine Sodium [Levoxyl] 112 mcg PO DAILY 12/13/17 [History] Morphine [MS Contin] 15 mg PO Q12H 12/13/17 [History] Venlafaxine HCl [Venlafaxine ER] 187.5 mg PO DAILY 12/13/17 [History] oxyCODONE 10 mg PO Q4H PRN 12/13/17 [History] Acetaminophen [Tylenol Extra Strength] 1,000 mg PO TID 05/02/18 [History] Cyclobenzaprine [Flexeril] 5 mg PO TID #60 tablet 05/04/18 [Rx] Aspirin [Low Dose Aspirin EC] 81 mg PO DAILY 05/07/18 [History] Calcium Carbonate/Vitamin D3 [Oyster Shell 500-Vit D3 200 Tb] 1 tab PO BID 03/17 [History] Insulin Glarg,Human.Rec.Analog [Lantus Solostar] 26 unit SUBCUT BEDTIME [History] Insulin Glarg,Human.Rec.Analog [Lantus] 20 units SQ WITHBREAKFAST 03/17/19 [ History] Magnesium Hydroxide [Milk of Magnesia] 15 ml PO DAILY PRN 03/17/19 [History] Meloxicam [Mobic] 7.5 mg PO Q12H PRN 03/17/19 [History] Morphine [MS Contin] 30 mg PO Q12H 03/17/19 [History] Non-Formulary Medication [NF Drug] 1 applic TOP ASDIRECTED PRN 03/17/19 [History ] levoFLOXacin [Levaquin] 500 mg PO DAILY #5 tab 03/21/19 [Rx] Past Medical History HEENT History: Reports: Impaired Vision Other HEENT History: Glasses Cardiovascular History: Reports: None Respiratory History: Reports: None Gastrointestinal History: Reports: Chronic Constipation Genitourinary History: Reports: Urinary Incontinence Other Genitourinary History: incomplete emptying of the bladder. Needs to go twice for complete emptying. Pt wears pad at night . 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 lower back fracture Neurological History: Reports: Migraines, Neuropathy, Diabetic Psychiatric History: Reports: Anxiety, Depression Endocrine/Metabolic History: Reports: Diabetes, Type I, Hypothyroidism, Osteoporosis Hematologic History: Reports: None Immunologic History: Reports: None Oncologic (Cancer) History: Reports: None Dermatologic History: Reports: None - Infectious Disease History Infectious Disease History: Reports: Chicken Pox, Measles, Mumps Other Infectious Disease History: staph infection. - Past Surgical History Head Surgeries/Procedures: Reports: None HEENT Surgical History: Reports: None Cardiovascular Surgical History: Reports: None Respiratory Surgical History: Reports: None GI Surgical History: Reports: None Female Surgical History: Reports: Hysterectomy Endocrine Surgical History: Reports: None Musculoskeletal Surgical History: Reports: Other (See Below) Other Musculoskeletal Surgeries/Procedures:: Kyphoplasty done several times to the vertebra Social & Family History - Family History Family Medical History: Noncontributory HEENT: Reports: Other (See Below) Other HEENT Family History: unklnown Other Cardiac Family History: unknown Other Respiratory Family Hisory: unknown Other GI Family History: unknown Other Family History: unknown Other OBGYN Family History: unknown Other Musculoskeletal Family History: unknown Other Neurological Family History: unkown Other Psychiatric Family History: unknown Other Endocrine/Metabolic Family History: unknown Other Hematologic Family History: unknown Other Immunologic Family History: unknown Other Dermatologic Family History: unknown Other Oncologic Family History: unknown - Caffeine Use Caffeine Use: Reports: Coffee Other Caffeine Use: AVERAGE OF 3 CUPS OF COFFEE DAILY, DAILY CAN OF CAFFIENATED SODA POP - Living Situation & Occupation Living situation: Reports: Alone, Assisted Living Occupation: Retired ED ROS GENERAL - Review of Systems Review Of Systems: ROS reveals no pertinent complaints other than HPI. ED EXAM, GENERAL - Physical Exam Exam: See Below Exam Limited By: Altered Mental Status (Confusion) General Appearance: Alert, Anxious, Mild Distress (Due to anxiety), Obese Eye Exam: Bilateral Eye: EOMI, Normal Inspection, PERRL Ears: Normal External Exam, Hearing Grossly Normal Nose: Normal Inspection, Normal Mucosa, No Blood Throat/Mouth: Normal Inspection, Normal Lips, Normal Voice, No Airway Compromise Head: Atraumatic, Normocephalic Neck: Normal Inspection, Supple, Non-Tender, Full Range of Motion Respiratory/Chest: No Respiratory Distress, Lungs Clear, Normal Breath Sounds, No Accessory Muscle Use, Chest Non-Tender Cardiovascular: Normal Peripheral Pulses, Regular Rate, Rhythm, No Edema, No Gallop, No JVD, No Murmur, No Rub GI/Abdominal: Normal Bowel Sounds, Soft, Non-Tender, No Organomegaly, No Distention, No Abnormal Bruit, No Mass, Other (Benign obese abdomen) Back Exam: Decreased Range of Motion, Paraspinal Tenderness (mild lumbar). No: Vertebral Tenderness Extremities: Normal Range of Motion, Non-Tender, Normal Capillary Refill, Other (Small bruise to Rt anterior knee.). No: Joint Swelling Neurological: Alert, CN II-XII Intact, No Motor/Sensory Deficits, Confused, Memory Loss Recent Events Psychiatric: Anxious, Tearful Skin Exam: Warm, Dry, Intact, Normal Color, No Rash EKG INTERPRETATION EKG Date: 04/26/19 Time: 18:31 Rhythm: Other (SR) Rate (Beats/Min): 85 [place]: Normal P-Wave: Present QRS: Normal ST-T: Normal QT: Normal Comparison: NA - No Prior EKG Course - Vital Signs Last Recorded V/S: Last Vital Signs Temp 98.3 F 04/26/19 17:37 Pulse 97 04/26/19 17:37 Resp 18 04/26/19 17:37 BP 118/87 04/26/19 17:37 Pulse Ox 99 04/26/19 17:37 - Orders/Labs/Meds Orders: Active Orders 24 hr Category Date Time Status Blood Glucose Check, Bedside [RC] ONETIME Care 04/26/19 18:00 Active EKG 12 Lead [EKG Documentation Completion] [RC] STAT Care 04/26/19 17:59 Active Peripheral IV Care [RC] . DIRECTED Care 04/26/19 18:00 Active Sodium Chloride 0.9% [Saline Flush] Med 04/26/19 18:00 Active 10 ml FLUSH ASDIRECTED PRN Peripheral IV Insertion Adult [OM.PC] Stat Oth 04/26/19 17:59 Ordered Medication Orders Sodium Chloride (Saline Flush) 10 ml FLUSH ASDIRECTED PRN PRN Reason: Keep Vein Open Last Admin: 04/26/19 19:24 Dose: 10 ml Labs: Laboratory Tests 04/26/19 04/26/19 04/26/19 Range/Units 18:10 18:27 18:27 WBC 6.3 (5.0-10.0) 10^3/uL RBC 4.46 (4.2-5.4) 10^6/uL Hgb 13.9 D (12.0-16.0) g/dL Hct 44.0 (37.0-47.0) % MCV 98.7 (80-100) fL MCH 31.2 (27.0-34.0) pg MCHC 31.6 L (33.0-35.0) g/dL Plt Count 300 (150-450) 10^3/uL Neut % (Auto) 39.4 L (42.2-75.2) % Lymph % (Auto) 46.8 (20.5-50.1) % [place] % (Auto) 10.6 H (2-8) % Eos % (Auto) 2.7 (1.0-3.0) % Baso % (Auto) 0.5 (0.0-1.0) % Sodium 139 (135-145) mmol/L Potassium 3.5 L (3.6-5.0) mmol/L Chloride 102 (101-111) mmol/L Carbon Dioxide 27.0 (21.0-31.0) mmol/L Anion Gap 13.5 BUN 11 (7-18) mg/dL Creatinine 0.8 (0.6-1.3) mg/dL Est Cr Clr Drug Dosing 54.13 mL/min Estimated GFR (MDRD) > 60 BUN/Creatinine Ratio 13.75 Glucose 84 (74-105) mg/dL POC Glucose 75 L (83-110) mg/dl Lactic Acid (0.5-2.2) mmol/L Calcium 8.7 (8.4-10.2) mg/dl Magnesium 2.0 (1.8-2.5) mg/dL Total Bilirubin 0.5 (0.2-1.0) mg/dL AST 47 H (10-42) IU/L ALT 42 (10-60) IU/L Alkaline Phosphatase 122 H (42-121) IU/L Troponin I < 0.02 (0.00-0.02) ng/ml Total Protein 7.6 (6.7-8.2) g/dl Albumin 4.0 (3.2-5.5) g/dl Globulin 3.6 Albumin/Globulin Ratio 1.11 TSH, Ultra Sensitive (0.45-5.33) uIu/mL Urine Color (YELLOW) Urine Appearance (CLEAR) Urine pH (5.0-9.0) Ur Specific [place] (1.005-1.030) Urine Protein (NEGATIVE) Urine Glucose (UA) (NEGATIVE) Urine Ketones (NEGATIVE) Urine Occult Blood (NEGATIVE) Urine Nitrite (NEGATIVE) Urine Bilirubin (NEGATIVE) Urine Urobilinogen (0.2-1.0) mg/dL Ur Leukocyte Esterase (NEGATIVE) Urine RBC /HPF Urine WBC (0-5/HPF) /HPF Ur Epithelial Cells (NOT SEEN) /HPF Amorphous Sediment (NOT SEEN) /HPF Urine Bacteria (0-FEW/HPF) /HPF Urine Mucus (NOT SEEN) /LPF Urine Opiates Screen (NEGATIVE) Ur Oxycodone Screen (NEGATIVE) Urine Methadone Screen (NEGATIVE) Ur Barbiturates Screen (NEGATIVE) U Tricyclic Antidepress (NEGATIVE) Ur Phencyclidine Scrn (NEGATIVE) Ur Amphetamine Screen (NEGATIVE) U Methamphetamines Scrn (NEGATIVE) Urine MDMA Screen (NEGATIVE) U Benzodiazepines Scrn (NEGATIVE) Urine Cocaine Screen (NEGATIVE) U Marijuana (THC) Screen (NEGATIVE) Ethyl Alcohol < 5 mg/dL 04/26/19 04/26/19 04/26/19 Range/Units 18:27 18:27 19:05 WBC (5.0-10.0) 10^3/uL RBC (4.2-5.4) 10^6/uL Hgb (12.0-16.0) g/dL Hct (37.0-47.0) % MCV (80-100) fL MCH (27.0-34.0) pg MCHC (33.0-35.0) g/dL Plt Count (150-450) 10^3/uL Neut % (Auto) (42.2-75.2) % Lymph % (Auto) (20.5-50.1) % [place] % (Auto) (2-8) % Eos % (Auto) (1.0-3.0) % Baso % (Auto) (0.0-1.0) % Sodium (135-145) mmol/L Potassium (3.6-5.0) mmol/L Chloride (101-111) mmol/L Carbon Dioxide (21.0-31.0) mmol/L Anion Gap BUN (7-18) mg/dL Creatinine (0.6-1.3) mg/dL Est Cr Clr Drug Dosing mL/min Estimated GFR (MDRD) BUN/Creatinine Ratio Glucose (74-105) mg/dL POC Glucose (83-110) mg/dl Lactic Acid 1.3 (0.5-2.2) mmol/L Calcium (8.4-10.2) mg/dl Magnesium (1.8-2.5) mg/dL Total Bilirubin (0.2-1.0) mg/dL AST (10-42) IU/L ALT (10-60) IU/L Alkaline Phosphatase (42-121) IU/L Troponin I (0.00-0.02) ng/ml Total Protein (6.7-8.2) g/dl Albumin (3.2-5.5) g/dl Globulin Albumin/Globulin Ratio TSH, Ultra Sensitive 2.17 (0.45-5.33) uIu/mL Urine Color Yellow (YELLOW) Urine Appearance Slightly cloudy (CLEAR) Urine pH 6.0 (5.0-9.0) Ur Specific [place] 1.020 (1.005-1.030) Urine Protein Trace H (NEGATIVE) Urine Glucose (UA) Negative (NEGATIVE) Urine Ketones Trace H (NEGATIVE) Urine Occult Blood Negative (NEGATIVE) Urine Nitrite Negative (NEGATIVE) Urine Bilirubin Negative (NEGATIVE) Urine Urobilinogen 0.2 (0.2-1.0) mg/dL Ur Leukocyte Esterase Negative (NEGATIVE) Urine RBC 0-5 /HPF Urine WBC 0-5 (0-5/HPF) /HPF Ur Epithelial Cells Few (NOT SEEN) /HPF Amorphous Sediment Few (NOT SEEN) /HPF Urine Bacteria Rare (0-FEW/HPF) /HPF Urine Mucus Moderate H (NOT SEEN) /LPF Urine Opiates Screen (NEGATIVE) Ur Oxycodone Screen (NEGATIVE) Urine Methadone Screen (NEGATIVE) Ur Barbiturates Screen (NEGATIVE) U Tricyclic Antidepress (NEGATIVE) Ur Phencyclidine Scrn (NEGATIVE) Ur Amphetamine Screen (NEGATIVE) U Methamphetamines Scrn (NEGATIVE) Urine MDMA Screen (NEGATIVE) U Benzodiazepines Scrn (NEGATIVE) Urine Cocaine Screen (NEGATIVE) U Marijuana (THC) Screen (NEGATIVE) Ethyl Alcohol mg/dL 04/26/19 Range/Units 19:05 WBC (5.0-10.0) 10^3/uL RBC (4.2-5.4) 10^6/uL Hgb (12.0-16.0) g/dL Hct (37.0-47.0) % MCV (80-100) fL MCH (27.0-34.0) pg MCHC (33.0-35.0) g/dL Plt Count (150-450) 10^3/uL Neut % (Auto) (42.2-75.2) % Lymph % (Auto) (20.5-50.1) % [place] % (Auto) (2-8) % Eos % (Auto) (1.0-3.0) % Baso % (Auto) (0.0-1.0) % Sodium (135-145) mmol/L Potassium (3.6-5.0) mmol/L Chloride (101-111) mmol/L Carbon Dioxide (21.0-31.0) mmol/L Anion Gap BUN (7-18) mg/dL Creatinine (0.6-1.3) mg/dL Est Cr Clr Drug Dosing mL/min Estimated GFR (MDRD) BUN/Creatinine Ratio Glucose (74-105) mg/dL POC Glucose (83-110) mg/dl Lactic Acid (0.5-2.2) mmol/L Calcium (8.4-10.2) mg/dl Magnesium (1.8-2.5) mg/dL Total Bilirubin (0.2-1.0) mg/dL AST (10-42) IU/L ALT (10-60) IU/L Alkaline Phosphatase (42-121) IU/L Troponin I (0.00-0.02) ng/ml Total Protein (6.7-8.2) g/dl Albumin (3.2-5.5) g/dl Globulin Albumin/Globulin Ratio TSH, Ultra Sensitive (0.45-5.33) uIu/mL Urine Color (YELLOW) Urine Appearance (CLEAR) Urine pH (5.0-9.0) Ur Specific [place] (1.005-1.030) Urine Protein (NEGATIVE) Urine Glucose (UA) (NEGATIVE) Urine Ketones (NEGATIVE) Urine Occult Blood (NEGATIVE) Urine Nitrite (NEGATIVE) Urine Bilirubin (NEGATIVE) Urine Urobilinogen (0.2-1.0) mg/dL Ur Leukocyte Esterase (NEGATIVE) Urine RBC /HPF Urine WBC (0-5/HPF) /HPF Ur Epithelial Cells (NOT SEEN) /HPF Amorphous Sediment (NOT SEEN) /HPF Urine Bacteria (0-FEW/HPF) /HPF Urine Mucus (NOT SEEN) /LPF Urine Opiates Screen Positive H (NEGATIVE) Ur Oxycodone Screen Positive H (NEGATIVE) Urine Methadone Screen Negative (NEGATIVE) Ur Barbiturates Screen Negative (NEGATIVE) U Tricyclic Antidepress Positive H (NEGATIVE) Ur Phencyclidine Scrn Negative (NEGATIVE) Ur Amphetamine Screen Negative (NEGATIVE) U Methamphetamines Scrn Negative (NEGATIVE) Urine MDMA Screen Negative (NEGATIVE) U Benzodiazepines Scrn Negative (NEGATIVE) Urine Cocaine Screen Negative (NEGATIVE) U Marijuana (THC) Screen Negative (NEGATIVE) Ethyl Alcohol mg/dL Meds: Medications Generic Name Dose Route Start Last Admin Trade Name Freq PRN Reason Stop Dose Admin Sodium Chloride 10 ml 04/26/19 18:00 04/26/19 19:24 Saline Flush FLUSH 10 ml ASDIRECTED PRN Administration Keep Vein Open - Re-Assessments/Exams Free Text/Narrative Re-Assessment/Exam: 04/26/19 19:00 Care of pt transferred to Wenceslao BASURTO at shift change. Departure - Departure Disposition: Home, Self-Care 01 Clinical Impression: Dementia Qualifiers: Dementia type: unspecified type Dementia behavioral disturbance: without behavioral disturbance Qualified Code(s): F03.90 - Unspecified dementia without behavioral disturbance Chronic pain Qualifiers: Chronic pain type: chronic pain syndrome Qualified Code(s): G89.4 - Chronic pain syndrome - Discharge Information Instructions: Dementia, [id number], Chronic Pain, Adult Forms: ED Department Discharge Additional Instructions: continue current medications follow up with primary care provider discuss if alternative higher level of care needed with progression of memory issues. <Thu Barker - Last Filed: 04/26/19 20:14> Departure - Departure Time of Disposition: 20:06 Condition: Fair - Discharge Information *PRESCRIPTION DRUG MONITORING PROGRAM REVIEWED*: No *COPY OF PRESCRIPTION DRUG MONITORING REPORT IN PATIENT GENTRY: No I have read and agree with the documentation that has been completed regarding this visit. By signing this record, I attest that the documentation was completed in my physical presence and is an accurate record of the encounter.
[2019-04-26 18:54] LABS: ANION GAP 13.5; CHLORIDE,CL 102 mmol/L (101-111); SODIUM,NA 139 mmol/L (135-145)
== END 2019-04-26 20:18 | disposition home or self-care (01) ==
LOC: DL.ED 17:38
DX: F03.90 Unspecified dementia, unspecified severity, without behavioral disturbance, psychotic disturbance, mood disturbance, and anxiety (principal); G89.4 Chronic pain syndrome; F41.9 Anxiety disorder, unspecified; F32.9 Major depressive disorder, single episode, unspecified; E10.9 Type 1 diabetes mellitus without complications; E03.9 Hypothyroidism, unspecified; Z88.1 Allergy status to other antibiotic agents; Z88.8 Allergy status to other drugs, medicaments and biological substances; Z79.899 Other long term (current) drug therapy; Z79.82 Long term (current) use of aspirin
CPT/HCPCS: 36415; 80053; 80305; 81001; 82962; 83605; 83735; 84443; 84484; 85025; 93005; 99284; G0480

== ENCOUNTER 2019-08-11 19:00 | Emergency (ER) | payer MEDICARE, MEDICAID ==
[2019-08-11 19:11] VITALS: BP 97/43; PULSE 97
[2019-08-11] MEDS ORDERED: Ketorolac 30 MG/ML SDV IM ONE (19:25)
--- NOTE | 2019-08-11 22:02 | EDM.PDOC ---
ED HPI GENERAL MEDICAL PROBLEM - General Chief Complaint: Back Pain or Injury Stated Complaint: BACK PAIN Time Seen by Provider: 08/11/19 21:57 Source of Information: Reports: Patient History Limitations: Reports: No Limitations - History of Present Illness INITIAL COMMENTS - FREE TEXT/NARRATIVE: c/o LBP all week worse tonight been at home crying. Treatments DRAFTER CASTINGS: Reports: Other (see below) Other Treatments DRAFTER CASTINGS: oxycodone. Middle Posterior Back Pain Score (Numeric/FACES): 10 - Related Data Allergies Allergy/AdvReac Type Severity Reaction Status Date / Time amoxicillin trihydrate Allergy Diarrhea Verified 08/11/19 19:42 [From Augmentin] potassium clavulanate Allergy Diarrhea Verified 08/11/19 19:42 [From Augmentin] lisinopril AdvReac Cough Verified 08/11/19 19:42 potassium AdvReac Diarrhea Verified 08/11/19 19:42 Jmuvigm-Dlc-Itu Reductase AdvReac Abdominal Verified 08/11/19 19:42 Inhibitor Pain Home Meds: Home Meds Gabapentin 1,200 mg PO TID 01/09/14 [History] Losartan [Cozaar] 12.5 mg PO DAILY 01/09/14 [History] traZODone 100 mg PO BEDTIME 01/09/14 [History] Insulin Aspart [NovoLOG] 10 units SQ TID 10/27/17 [History] Montelukast [Singulair] 10 mg PO BEDTIME 10/27/17 [History] Docusate Sodium [Colace] 100 mg PO BID PRN 12/13/17 [History] Morphine [MS Contin] 15 mg PO Q12H 12/13/17 [History] Venlafaxine HCl [Venlafaxine ER] 187.5 mg PO DAILY 12/13/17 [History] oxyCODONE 10 mg PO Q4H PRN 12/13/17 [History] Acetaminophen [Tylenol Extra Strength] 1,000 mg PO TID 05/02/18 [History] Cyclobenzaprine [Flexeril] 5 mg PO TID #60 tablet 05/04/18 [Rx] Aspirin [Low Dose Aspirin EC] 81 mg PO DAILY 05/07/18 [History] Calcium Carbonate/Vitamin D3 [Oyster Shell 500-Vit D3 200 Tb] 1 tab PO BID 03/17 [History] Insulin Glarg,Human.Rec.Analog [Lantus Solostar] 26 unit SUBCUT BEDTIME [History] Insulin Glarg,Human.Rec.Analog [Lantus] 20 units SQ WITHBREAKFAST 03/17/19 [ History] Magnesium Hydroxide [Milk of Magnesia] 15 ml PO DAILY PRN 03/17/19 [History] Meloxicam [Mobic] 7.5 mg PO Q12H PRN 03/17/19 [History] Morphine [MS Contin] 30 mg PO Q12H 03/17/19 [History] Non-Formulary Medication [NF Drug] 1 applic TOP ASDIRECTED PRN 03/17/19 [History ] levoFLOXacin [Levaquin] 500 mg PO DAILY #5 tab 03/21/19 [Rx] Baclofen 5 mg PO Q8H PRN 08/11/19 [History] Biotin 5,000 mcg PO DAILY 08/11/19 [History] Cholecalciferol (Vitamin D3) [Vitamin D3] 1,000 units PO DAILY 08/11/19 [History ] Donepezil HCl [Aricept] 10 mg PO DAILY 08/11/19 [History] Famotidine 20 mg PO BID 08/11/19 [History] Lidocaine HCl [Aspercreme Lidocaine] 1 applic TOP ASDIRECTED PRN 08/11/19 [ History] Past Medical History HEENT History: Reports: Impaired Vision Other HEENT History: Glasses Cardiovascular History: Reports: None Respiratory History: Reports: None Gastrointestinal History: Reports: Chronic Constipation Genitourinary History: Reports: Urinary Incontinence Other Genitourinary History: incomplete emptying of the bladder. Needs to go twice for complete emptying. Pt wears pad at night . 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 L1,l2, l5 compression fx. lower back fracture Neurological History: Reports: Migraines, Neuropathy, Diabetic Psychiatric History: Reports: Anxiety, Depression Endocrine/Metabolic History: Reports: Diabetes, Type I, Hypothyroidism, Osteoporosis Hematologic History: Reports: None Immunologic History: Reports: None Oncologic (Cancer) History: Reports: None Dermatologic History: Reports: None - Infectious Disease History Infectious Disease History: Reports: Chicken Pox, Measles, Mumps Other Infectious Disease History: staph infection. - Past Surgical History Head Surgeries/Procedures: Reports: None HEENT Surgical History: Reports: None Cardiovascular Surgical History: Reports: None Respiratory Surgical History: Reports: None GI Surgical History: Reports: None Female Surgical History: Reports: Hysterectomy Endocrine Surgical History: Reports: None Musculoskeletal Surgical History: Reports: Other (See Below) Other Musculoskeletal Surgeries/Procedures:: Kyphoplasty done several times to the vertebra Social & Family History - Family History Family Medical History: Noncontributory HEENT: Reports: Other (See Below) Other HEENT Family History: unklnown Other Cardiac Family History: unknown Other Respiratory Family Hisory: unknown Other GI Family History: unknown Other Family History: unknown Other OBGYN Family History: unknown Other Musculoskeletal Family History: unknown Other Neurological Family History: unkown Other Psychiatric Family History: unknown Other Endocrine/Metabolic Family History: unknown Other Hematologic Family History: unknown Other Immunologic Family History: unknown Other Dermatologic Family History: unknown Other Oncologic Family History: unknown - Tobacco Use Smoking Status *Q: Unknown Ever Smoked Second Hand Smoke Exposure: No - Caffeine Use Caffeine Use: Reports: Coffee, Soda Other Caffeine Use: AVERAGE OF 3 CUPS OF COFFEE DAILY, DAILY CAN OF CAFFIENATED SODA POP - Recreational Drug Use Recreational Drug Use: No - Living Situation & Occupation Living situation: Reports: Alone, Assisted Living Occupation: Retired ED ROS GENERAL - Review of Systems Review Of Systems: Comprehensive ROS is negative, except as noted in HPI. ED EXAM,LOWER BACK PAIN/INJURY - Physical Exam Exam: See Below Exam Limited By: No Limitations General Appearance: Alert, WD/WN, Mild Distress, Other (tearful) Ears: Hearing Grossly Normal Throat/Mouth: Normal Voice, No Airway Compromise Head: Atraumatic Neck: Non-Tender, Full Range of Motion Respiratory/Chest: No Respiratory Distress Cardiovascular: Regular Rate, Rhythm GI/Abdominal: Soft, Non-Tender Back Exam: Muscle Spasm, Paraspinal Tenderness, Other (L3-4-5-S1 region with minor radiculitis) Neurological: Alert, No Motor/Sensory Deficits, Oriented x 3, Other (gait limited to [place]) Psychiatric: Flat Affect, Tearful Skin Exam: Warm, Dry, Normal Color Lymphatic: No Adenopathy Course - Vital Signs Last Recorded V/S: Last Vital Signs Temp 36.3 C 08/11/19 19:09 Pulse 97 08/11/19 19:09 Resp 24 H 08/11/19 19:09 BP 97/43 L 08/11/19 19:09 Pulse Ox 94 L 08/11/19 19:09 - Orders/Labs/Meds Meds: Medications Discontinued Medications Generic Name Dose Route Start Last Admin Trade Name Kevon PRN Reason Stop Dose Admin Ketorolac Tromethamine 30 mg 08/11/19 19:25 08/11/19 19:32 Toradol IM 08/11/19 19:26 30 mg ONETIME ONE Administration Orphenadrine Citrate 60 mg 08/11/19 19:26 08/11/19 19:33 Norflex IM 08/11/19 19:27 60 mg ONETIME ONE Administration - Re-Assessments/Exams Free Text/Narrative Re-Assessment/Exam: 08/11/19 22:00 results discussed with pt. Departure - Departure Time of Disposition: 22:01 Disposition: Home, Self-Care 01 Condition: Good Clinical Impression: Lumbar radiculopathy, chronic - Discharge Information Instructions: Chronic Back Pain, [id number] Additional Instructions: 1) rest 2) no bending lifting straining 3) see family doctor Tuesday for MRI SCAN Sepsis Event Note - Evaluation Sepsis Screening Result: No Definite Risk - Focused Exam Vital Signs: Vital Signs Temp Pulse Resp BP Pulse Ox 08/11/19 19:09 36.3 C 97 24 H 97/43 L 94 L Date Exam was Performed: 08/11/19 Time Exam was Performed: 21:57
== END 2019-08-11 22:08 | disposition home or self-care (01) ==
LOC: DL.ED 19:00
DX: M54.16 Radiculopathy, lumbar region (principal); E10.40 Type 1 diabetes mellitus with diabetic neuropathy, unspecified; Z79.899 Other long term (current) drug therapy; Z79.82 Long term (current) use of aspirin; Z88.1 Allergy status to other antibiotic agents; Z88.8 Allergy status to other drugs, medicaments and biological substances
CPT/HCPCS: 72070; 72100; 96372; 99283; J1885; J2360

== ENCOUNTER 2019-09-21 12:01 | Emergency (ER) | payer MEDICARE, MEDICAID ==
[2019-09-21] MEDS ORDERED: Bacitracin Oint 1 GM U/D Packet TOP ONE (12:02)
[2019-09-21] MEDS ORDERED: Lidocaine 1% 30 ML SDV INJECT ONE (12:02)
[2019-09-21 12:22] VITALS: BP 123/56; PULSE 89
--- NOTE | 2019-09-21 13:03 | EDM.PDOC ---
<Priyanka Albrecht - Last Filed: 09/21/19 12:58> ED HPI GENERAL MEDICAL PROBLEM - General Chief Complaint: Laceration Stated Complaint: AMBULANCE Time Seen by Provider: 09/21/19 12:30 Source of Information: Reports: Patient History Limitations: Reports: No Limitations - History of Present Illness INITIAL COMMENTS - FREE TEXT/NARRATIVE: Patient presents to the ED by private vehicle with concerns of right thumb laceration. The patient states that she was cutting onions with a mandolin this morning and ran her hand across the sharp edge. She presents with a flap like laceration to her right thenar eminence. The patient states that she is up to date on her tetanus. 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 below) (bandage to right hand) - Related Data Allergies Allergy/AdvReac Type Severity Reaction Status Date / Time amoxicillin trihydrate Allergy Diarrhea Verified 09/21/19 12:40 [From Augmentin] potassium clavulanate Allergy Diarrhea Verified 09/21/19 12:40 [From Augmentin] lisinopril AdvReac Cough Verified 09/21/19 12:40 potassium AdvReac Diarrhea Verified 09/21/19 12:40 Qheoflo-Oag-Gjz Reductase AdvReac Abdominal Verified 09/21/19 12:40 Inhibitor Pain Home Meds: Home Meds Gabapentin 1,200 mg PO TID 01/09/14 [History] Losartan [Cozaar] 12.5 mg PO DAILY 01/09/14 [History] traZODone 100 mg PO BEDTIME 01/09/14 [History] Insulin Aspart [NovoLOG] 10 units SQ TID 10/27/17 [History] Montelukast [Singulair] 10 mg PO BEDTIME 10/27/17 [History] Docusate Sodium [Colace] 100 mg PO BID PRN 12/13/17 [History] Morphine [MS Contin] 15 mg PO Q12H 12/13/17 [History] Venlafaxine HCl [Venlafaxine ER] 187.5 mg PO DAILY 12/13/17 [History] oxyCODONE 10 mg PO Q4H PRN 12/13/17 [History] Acetaminophen [Tylenol Extra Strength] 1,000 mg PO TID 05/02/18 [History] Cyclobenzaprine [Flexeril] 5 mg PO TID #60 tablet 05/04/18 [Rx] Aspirin [Low Dose Aspirin EC] 81 mg PO DAILY 05/07/18 [History] Calcium Carbonate/Vitamin D3 [Oyster Shell 500-Vit D3 200 Tb] 1 tab PO BID 03/17 [History] Insulin Glarg,Human.Rec.Analog [Lantus Solostar] 26 unit SUBCUT BEDTIME [History] Insulin Glarg,Human.Rec.Analog [Lantus] 20 units SQ WITHBREAKFAST 03/17/19 [ History] Magnesium Hydroxide [Milk of Magnesia] 15 ml PO DAILY PRN 03/17/19 [History] Meloxicam [Mobic] 7.5 mg PO Q12H PRN 03/17/19 [History] Morphine [MS Contin] 30 mg PO Q12H 03/17/19 [History] Non-Formulary Medication [NF Drug] 1 applic TOP ASDIRECTED PRN 03/17/19 [History ] levoFLOXacin [Levaquin] 500 mg PO DAILY #5 tab 03/21/19 [Rx] Baclofen 5 mg PO Q8H PRN 08/11/19 [History] Biotin 5,000 mcg PO DAILY 08/11/19 [History] Cholecalciferol (Vitamin D3) [Vitamin D3] 1,000 units PO DAILY 08/11/19 [History ] Donepezil HCl [Aricept] 10 mg PO DAILY 08/11/19 [History] Famotidine 20 mg PO BID 08/11/19 [History] Lidocaine HCl [Aspercreme Lidocaine] 1 applic TOP ASDIRECTED PRN 08/11/19 [ History] Past Medical History HEENT History: Reports: Impaired Vision Other HEENT History: Glasses Cardiovascular History: Reports: None Respiratory History: Reports: None Gastrointestinal History: Reports: Chronic Constipation Genitourinary History: Reports: Urinary Incontinence Other Genitourinary History: incomplete emptying of the bladder. Needs to go twice for complete emptying. Pt wears pad at night . FIELD NURSE History: Reports: Other FIELD NURSE History: Hysterectomy done 1998 Musculoskeletal History: Reports: Back Pain, Chronic, Fracture, Osteoarthritis, Osteoporosis, Other (See Below) Other Musculoskeletal History: fx T4, T7. L1,l2, l5 compression fx. lower back fracture Neurological History: Reports: Migraines, Neuropathy, Diabetic Psychiatric History: Reports: Anxiety, Depression Endocrine/Metabolic History: Reports: Diabetes, Type I, Hypothyroidism, Osteoporosis Hematologic History: Reports: None Immunologic History: Reports: None Oncologic (Cancer) History: Reports: None Dermatologic History: Reports: None - Infectious Disease History Infectious Disease History: Reports: Chicken Pox, Measles, Mumps Other Infectious Disease History: staph infection. - Past Surgical History Head Surgeries/Procedures: Reports: None HEENT Surgical History: Reports: None Cardiovascular Surgical History: Reports: None Respiratory Surgical History: Reports: None GI Surgical History: Reports: None Female Surgical History: Reports: Hysterectomy Endocrine Surgical History: Reports: None Musculoskeletal Surgical History: Reports: Other (See Below) Other Musculoskeletal Surgeries/Procedures:: Kyphoplasty done several times to the vertebra Social & Family History - Family History Family Medical History: Noncontributory HEENT: Reports: Other (See Below) Other HEENT Family History: unklnown Other Cardiac Family History: unknown Other Respiratory Family Hisory: unknown Other GI Family History: unknown Other Family History: unknown Other OBGYN Family History: unknown Other Musculoskeletal Family History: unknown Other Neurological Family History: unkown Other Psychiatric Family History: unknown Other Endocrine/Metabolic Family History: unknown Other Hematologic Family History: unknown Other Immunologic Family History: unknown Other Dermatologic Family History: unknown Other Oncologic Family History: unknown - Tobacco Use Smoking Status *Q: Never Smoker - Caffeine Use Caffeine Use: Reports: Coffee, Soda Other Caffeine Use: AVERAGE OF 3 CUPS OF COFFEE DAILY, DAILY CAN OF CAFFIENATED SODA POP - Recreational Drug Use Recreational Drug Use: No - Living Situation & Occupation Living situation: Reports: Alone, Assisted Living Occupation: Retired ED ROS GENERAL - Review of Systems Review Of Systems: See Below Constitutional: Denies: Fever, Chills Skin: Reports: Wound. Denies: Bruising, Burn(s) Neurological: Denies: Numbness, Tingling ED EXAM, SKIN/RASH Exam: See Below Exam Limited By: No Limitations General Appearance: Alert, No Apparent Distress Head: Atraumatic, Normocephalic Respiratory/Chest: No Respiratory Distress, Lungs Clear, Normal Breath Sounds Cardiovascular: Normal Peripheral Pulses, Regular Rate, Rhythm, No Murmur Extremities: Normal Range of Motion, Normal Capillary Refill, Other (sensation intact to light touch throughout right hand) Neurological: Alert, Oriented, No Motor/Sensory Deficits Skin: Wound/Incision (right hand thenar eminence, flap laceration, approximately 2X2 cm across) ED SKIN PROCEDURES - Laceration/Wound Repair Right Hand Appearance: Superficial, Clean, Other (Flap) Distal NVT: Neuro & Vascular Intact, No Tendon Injury Anesthetic Type: Local Local Anesthesia - Lidocaine (Xylocaine): 1% Plain Local Anesthetic Volume: Other (10cc) Skin Prep: Providone-Iodine (Betadine) Exploration/Debridement/Repair: Wound Explored, Minimal Debridement, No Foreign Material Found Closed with: Sutures Lac/Wound length In cm: 2 Suture Size: 4-0 # of Sutures: 6 Suture Type: Nylon, Interrupted Drain Placement: No Sterile Dressing Applied: Nurse Tetanus Status Addressed: Yes Complications: No Progress/Comments: Wound edges well approximated. Tolerated procedure well. Course - Vital Signs Last Recorded V/S: Last Vital Signs Temp 36.5 C 09/21/19 12:02 Pulse 89 09/21/19 12:02 Resp 16 09/21/19 12:02 BP 123/56 L 09/21/19 12:02 Pulse Ox 90 L 09/21/19 12:02 - Orders/Labs/Meds Meds: Medications Discontinued Medications Generic Name Dose Route Start Last Admin Trade Name Freq PRN Reason Stop Dose Admin Bacitracin 1 dose 09/21/19 12:02 09/21/19 13:06 Bacitracin Oint 1 Gm TOP 09/21/19 12:03 1 dose ONETIME ONE Administration Lidocaine HCl 30 ml 09/21/19 12:02 09/21/19 13:06 Xylocaine-Mpf 1% INJECT 09/21/19 12:03 30 ml ONETIME ONE Administration Departure - Departure Time of Disposition: 13:06 Disposition: Home, Self-Care 01 Condition: Good Clinical Impression: Hand laceration - Discharge Information *PRESCRIPTION DRUG MONITORING PROGRAM REVIEWED*: Not Applicable *COPY OF PRESCRIPTION DRUG MONITORING REPORT IN PATIENT GENTRY: Not Applicable Instructions: Wound Infection, [id number]-Vaas, Sutured Wound Care, [id number] Forms: ED Department Discharge Additional Instructions: See primary care provider in 7-10 days for suture removal. Sooner if develop drainage from wound, fevers. Sepsis Event Note - Evaluation Sepsis Screening Result: No Definite Risk - Focused Exam Vital Signs: Vital Signs Temp Pulse Resp BP Pulse Ox 09/21/19 12:02 36.5 C 89 16 123/56 L 90 L Date Exam was Performed: 09/21/19 Time Exam was Performed: 12:58 <Chao Man - Last Filed: 09/21/19 13:11> Course - Re-Assessments/Exams Free Text/Narrative Re-Assessment/Exam: 09/21/19 13:10 A assessed the patient after the PA student visited with the patient. I have reviewed the documentation and agree with the assessment and plan. Sepsis Event Note - Focused Exam Date Exam was Performed: 09/21/19 Time Exam was Performed: 13:09
== END 2019-09-21 13:37 | disposition home or self-care (01) ==
LOC: DL.ED 12:01
DX: S61.411A Laceration without foreign body of right hand, initial encounter (principal); E10.9 Type 1 diabetes mellitus without complications; E03.9 Hypothyroidism, unspecified; F41.9 Anxiety disorder, unspecified; F32.9 Major depressive disorder, single episode, unspecified; Z79.4 Long term (current) use of insulin; Z79.899 Other long term (current) drug therapy; Z88.8 Allergy status to other drugs, medicaments and biological substances; Z88.1 Allergy status to other antibiotic agents; W26.9XXA Contact with unspecified sharp object(s), initial encounter
CPT/HCPCS: 12001; 99282; J2001

== ENCOUNTER 2020-05-25 06:20 | Emergency (ER) | payer MEDICARE, MEDICAID ==
[2020-05-25 06:37] VITALS: BP 113/51; PULSE 73
--- NOTE | 2020-05-25 06:44 | EDM.PDOC ---
<Donita Ralph - Last Filed: 05/25/20 06:44> ED HPI GENERAL MEDICAL PROBLEM - General Chief Complaint: Chest Pain Stated Complaint: AMBULANCE Time Seen by Provider: 05/25/20 06:30 Source of Information: Reports: Patient, EMS, RN, RN Notes Reviewed History Limitations: Reports: No Limitations - History of Present Illness INITIAL COMMENTS - FREE TEXT/NARRATIVE: pt arrives via ambulance s/p fall 05/21. pt reports having eye surgery in the past month and still cannot see. states she fell into her couch and injured her right ribs. states then again a day ago, she fell again into her walker injuring the same area. reports pain to right rib area with deep breaths. reports pain 9.5. denies pain or injury to any other location. - Related Data Allergies Allergy/AdvReac Type Severity Reaction Status Date / Time amoxicillin trihydrate Allergy Diarrhea Verified 09/21/19 12:40 [From Augmentin] potassium clavulanate Allergy Diarrhea Verified 09/21/19 12:40 [From Augmentin] lisinopril AdvReac Cough Verified 09/21/19 12:40 potassium AdvReac Diarrhea Verified 09/21/19 12:40 Srgvnlg-Ryn-Bmh Reductase AdvReac Abdominal Verified 09/21/19 12:40 Inhibitor Pain Home Meds: Home Meds Gabapentin 1,200 mg PO TID 01/09/14 [History] Losartan [Cozaar] 12.5 mg PO DAILY 01/09/14 [History] traZODone 100 mg PO BEDTIME 01/09/14 [History] Insulin Aspart [NovoLOG] 10 units SQ TID 10/27/17 [History] Montelukast [Singulair] 10 mg PO BEDTIME 10/27/17 [History] Docusate Sodium [Colace] 100 mg PO BID PRN 12/13/17 [History] Morphine [MS Contin] 15 mg PO Q12H 12/13/17 [History] Venlafaxine HCl [Venlafaxine ER] 187.5 mg PO DAILY 12/13/17 [History] oxyCODONE 10 mg PO Q4H PRN 12/13/17 [History] Acetaminophen [Tylenol Extra Strength] 1,000 mg PO TID 05/02/18 [History] Cyclobenzaprine [Flexeril] 5 mg PO TID #60 tablet 10/18/18 [Rx] Aspirin [Low Dose Aspirin EC] 81 mg PO DAILY 05/07/18 [History] Calcium Carbonate/Vitamin D3 [Oyster Shell 500-Vit D3 200 Tb] 1 tab PO BID 03/17/19 [History] Insulin Glarg,Human.Rec.Analog [Lantus Solostar] 26 unit SUBCUT BEDTIME 03/17/19 [History] Insulin Glarg,Human.Rec.Analog [Lantus] 20 units SQ WITHBREAKFAST 03/17/19 [History] Magnesium Hydroxide [Milk of Magnesia] 15 ml PO DAILY PRN 03/17/19 [History] Meloxicam [Mobic] 7.5 mg PO Q12H PRN 03/17/19 [History] Morphine [MS Contin] 30 mg PO Q12H 03/17/19 [History] Non-Formulary Medication [NF Drug] 1 applic TOP ASDIRECTED PRN 03/17/19 [History] levoFLOXacin [Levaquin] 500 mg PO DAILY #5 tab 03/21/19 [Rx] Baclofen 5 mg PO Q8H PRN 08/11/19 [History] Biotin 5,000 mcg PO DAILY 08/11/19 [History] Cholecalciferol (Vitamin D3) [Vitamin D3] 1,000 units PO DAILY 08/11/19 [ History] Donepezil HCl [Aricept] 10 mg PO DAILY 08/11/19 [History] Famotidine 20 mg PO BID 08/11/19 [History] lidocaine HCL [Aspercreme Lidocaine] 1 applic TOP ASDIRECTED PRN 08/11/19 [History] ED ROS GENERAL - Review of Systems Review Of Systems: Comprehensive ROS is negative, except as noted in HPI. ED EXAM, GENERAL - Physical Exam Exam: See Below Exam Limited By: No Limitations General Appearance: Alert, WD/WN, Mild Distress Eye Exam: Bilateral Eye: EOMI, Normal Inspection, Vision Changes (recent surgery) Ears: Normal External Exam, Hearing Grossly Normal Nose: Normal Inspection, No Blood Throat/Mouth: Normal Inspection, Normal Lips, Normal Teeth, Normal Gums, Normal Voice, No Airway Compromise Head: Atraumatic, Normocephalic Neck: Normal Inspection Respiratory/Chest: Lungs Clear, Normal Breath Sounds, Other (c/o pain with deep breathing) Cardiovascular: Normal Peripheral Pulses, Regular Rate, Rhythm, No Edema, No Gallop, No JVD, No Murmur, No Rub GI/Abdominal: Normal Bowel Sounds, Soft (Female) Exam: Deferred Rectal (Female) Exam: Deferred Back Exam: Normal Inspection Extremities: Normal Inspection Neurological: Alert, Oriented, Normal Cognition, No Motor/Sensory Deficits Psychiatric: Normal Affect, Normal Mood Skin Exam: Warm, Dry, Intact, Normal Color, No Rash. No: Ecchymosis Lymphatic: No Adenopathy Departure - Departure Disposition: Home, Self-Care 01 Clinical Impression: Contusion of rib on right side Qualifiers: Encounter type: initial encounter Qualified Code(s): S20.211A - Contusion of right front wall of thorax, initial encounter Fall as cause of accidental injury at home as place of occurrence Qualifiers: Encounter type: initial encounter Qualified Code(s): W19.XXXA - Unspecified fall, initial encounter - Discharge Information Instructions: Fall Prevention in the Home, Adult, [id number], Rib Contusion Referrals: Zach Wagner MD [Primary Care Provider] - Forms: ED Department Discharge Additional Instructions: Use your pain medication as prescribed. Follow up in clinic if not improving as expected in 1 week. 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 Course - Radiology Interpretation Free Text/Narrative:: [facility] [place] [facility] Final Radiology Report Call: [phone] assistance Online chat: [email or web address] Name: DESTIN SEGOVIA Age: 70Years F Date: 05/25/2020 SSN: -- : [id number] Study: CR RIBS 2V W CHEST RT Requesting Physician: Donita Ralph Images: 3 Addl Studies: Provided Clinical History: pain, fall Contrast: Contrast Medium: Contrast Amount: Contrast Method: CONFIDENTIALITY STATEMENT This report is intended only for use by the referring physician, and only in accordance with law. If you received this in error, call [phone]. Page 1 of 1 PROCEDURE INFORMATION: Exam: XR Right Ribs with PA Chest, 3 Views Exam date and time: 05/25/2020 7:21 AM Age: 70 years old Clinical indication: Injury or trauma; Fall; Rib area; Blunt trauma (contusions or hematomas); Additional info: Pain, fall TECHNIQUE: Imaging protocol: XR Right ribs 3 views with PA chest. COMPARISON: CR Chest 2V 03/17/2019 5:25 AM FINDINGS: Lungs: Unremarkable. No consolidation. Pleural space: Unremarkable. No pleural effusion. No pneumothorax. Heart/Mediastinum: The cardiomediastinal silhouette is fairly stable in appearance. Bones/joints: There has again been multilevel thoracic and lumbar kyphoplasty. Degenerative changes again involve the spine. No acute fracture of the visualized skeleton, including the left ribs, is identified. IMPRESSION: 1. No evidence for acute pulmonary disease. 2. No left rib fracture identified. Thank you for allowing us to participate in the care of your patient. Dictated and Authenticated by: Sathish Whittington MD 05/25/2020 7:48 AM Central Time ([place] & [place]) Departure - Departure Time of Disposition: 07:50 Condition: Good - Discharge Information *PRESCRIPTION DRUG MONITORING PROGRAM REVIEWED*: No *COPY OF PRESCRIPTION DRUG MONITORING REPORT IN PATIENT GENTRY: No <Valeria Blue - Last Filed: 05/26/20 00:16> ED HPI GENERAL MEDICAL PROBLEM Right Trunk Pain Score (Numeric/FACES): 9 Past Medical History HEENT History: Reports: Impaired Vision Other HEENT History: Glasses Cardiovascular History: Reports: None Respiratory History: Reports: None Gastrointestinal History: Reports: Chronic Constipation Genitourinary History: Reports: Urinary Incontinence Other Genitourinary History: incomplete emptying of the bladder. Needs to go twice for complete emptying. Pt wears pad at night . 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 L1,l2, l5 compression fx. lower back fracture Neurological History: Reports: Migraines, Neuropathy, Diabetic Psychiatric History: Reports: Anxiety, Depression Endocrine/Metabolic History: Reports: Diabetes, Type I, Hypothyroidism, Osteoporosis Hematologic History: Reports: None Immunologic History: Reports: None Oncologic (Cancer) History: Reports: None Dermatologic History: Reports: None - Infectious Disease History Infectious Disease History: Reports: Chicken Pox, Measles, Mumps Other Infectious Disease History: staph infection. - Past Surgical History Head Surgeries/Procedures: Reports: None HEENT Surgical History: Reports: None Cardiovascular Surgical History: Reports: None Respiratory Surgical History: Reports: None GI Surgical History: Reports: None Female Surgical History: Reports: Hysterectomy Endocrine Surgical History: Reports: None Musculoskeletal Surgical History: Reports: Other (See Below) Other Musculoskeletal Surgeries/Procedures:: Kyphoplasty done several times to the vertebra Social & Family History - Family History Family Medical History: Noncontributory HEENT: Reports: Other (See Below) Other HEENT Family History: unklnown Other Cardiac Family History: unknown Other Respiratory Family Hisory: unknown Other GI Family History: unknown Other Family History: unknown Other OBGYN Family History: unknown Other Musculoskeletal Family History: unknown Other Neurological Family History: unkown Other Psychiatric Family History: unknown Other Endocrine/Metabolic Family History: unknown Other Hematologic Family History: unknown Other Immunologic Family History: unknown Other Dermatologic Family History: unknown Other Oncologic Family History: unknown - Caffeine Use Caffeine Use: Reports: Coffee, Soda Other Caffeine Use: AVERAGE OF 3 CUPS OF COFFEE DAILY, DAILY CAN OF CAFFIENATED SODA POP - Living Situation & Occupation Living situation: Reports: Alone, Assisted Living Occupation: Retired Course - Vital Signs Last Recorded V/S: Last Vital Signs Temp 97.1 F 05/25/20 06:33 Pulse 73 05/25/20 06:33 Resp 18 05/25/20 06:33 BP 113/51 L 05/25/20 06:33 Pulse Ox 95 05/25/20 06:33 - Orders/Labs/Meds Labs: Laboratory Tests 05/25/20 Range/Units 07:18 Urine Color Yellow (YELLOW) Urine Appearance Clear (CLEAR) Urine pH 7.0 (5.0-9.0) Ur Specific [place] 1.020 (1.005-1.030) Urine Protein Negative (NEGATIVE) Urine Glucose (UA) 500 H (NEGATIVE) Urine Ketones Negative (NEGATIVE) Urine Occult Blood Negative (NEGATIVE) Urine Nitrite Negative (NEGATIVE) Urine Bilirubin Negative (NEGATIVE) Urine Urobilinogen 0.2 (0.2-1.0) mg/dL Ur Leukocyte Esterase Negative (NEGATIVE) Urine RBC Not seen /HPF Urine WBC 0-5 (0-5/HPF) /HPF Ur Epithelial Cells Rare (NOT SEEN) /HPF Urine Bacteria Rare (0-FEW/HPF) /HPF - Re-Assessments/Exams Free Text/Narrative Re-Assessment/Exam: 05/25/20 06:43 I personally performed or re-performed the physical examination and medical decision making. I have verified all student documentation or findings, includi ng history, physical exam and/or medical decision making. Sepsis Event Note (ED) - Evaluation Sepsis Screening Result: No Definite Risk
--- NOTE | 2020-05-25 07:48 | CR ---
PROCEDURE INFORMATION: Exam: XR Right Ribs with PA Chest, 3 Views Exam date and time: 05/25/2020 7:21 AM Age: 70 years old Clinical indication: Injury or trauma; Fall; Rib area; Blunt trauma (contusions or hematomas); Additional info: Pain, fall TECHNIQUE: Imaging protocol: XR Right ribs 3 views with PA chest. COMPARISON: CR Chest 2V 03/17/2019 5:25 AM FINDINGS: Lungs: Unremarkable. No consolidation. Pleural space: Unremarkable. No pleural effusion. No pneumothorax. Heart/Mediastinum: The cardiomediastinal silhouette is fairly stable in appearance. Bones/joints: There has again been multilevel thoracic and lumbar kyphoplasty. Degenerative changes again involve the spine. No acute fracture of the visualized skeleton, including the left ribs, is identified. IMPRESSION: 1. No evidence for acute pulmonary disease. 2. No left rib fracture identified.
== END 2020-05-25 07:58 | disposition home or self-care (01) ==
LOC: DL.ED 06:20
DX: S20.211A Contusion of right front wall of thorax, initial encounter (principal); Z88.1 Allergy status to other antibiotic agents; Z88.8 Allergy status to other drugs, medicaments and biological substances; Z79.4 Long term (current) use of insulin; Z79.82 Long term (current) use of aspirin; Z79.899 Other long term (current) drug therapy; W19.XXXA Unspecified fall, initial encounter; Y92.009 Unspecified place in unspecified non-institutional (private) residence as the place of occurrence of the external cause
CPT/HCPCS: 71101-RT; 81001; 99283; 99284-25

== ENCOUNTER 2020-09-23 07:54 | Day surgery (SDC) | payer MEDICARE, MEDICAID ==
[~2020-09-23 07:54] MED LIST changes: -Aspirin 81 MG Tab.Chew PO ONE; +Dextrose 5%-0.45% NaCl 1,000 ML IV SCH; +Midazolam 1 MG/ML 2 ML SDV IV ONE; +Midazolam 1 MG/ML 2 ML SDV ONE; +Sodium Chloride 0.9% 10 ML Syringe FLUSH PRN; +fentaNYL 100 MCG/2 ML SDV IV ONE; +fentaNYL 100 MCG/2 ML SDV ONE
[2020-09-23] MEDS ORDERED: Midazolam 1 MG/ML 2 ML SDV IV ONE (07:55)
[2020-09-23] MEDS ORDERED: fentaNYL 100 MCG/2 ML SDV IV ONE (07:55)
--- NOTE | 2020-09-23 09:18 | OR ---
DATE: 09/23/2020 PROCEDURES: Esophagogastroduodenoscopy and multiple pinch biopsies. INSTRUMENT USED: [id number] Olympus video panendoscope. PREMEDICATIONS: No oral or topical anesthesia used. Fentanyl 100 mcg intravenous, Versed 1.5 mg intravenous, nasal O2 cannula. The procedure was done under pulse oximetry, BP recording, and case monitor. INDICATION: The patient with numerous significant illnesses including diabetes mellitus, on multiple medications with persistent abdominal pain, vomiting, as well as diarrhea unexplained and not responsive to medical measures. Esophagogastroduodenoscopy is performed for detection of any active erosive lesions, Iniguez esophagus and/or malignancy also under consideration, H pylori status to be determined, small bowel biopsies to be obtained for any evidence of celiac disease, endoscopic hemostasis therapy if needed. The scope was passed with ease. Adequate visualization of the esophagus was made from proximal to distal areas. No upper esophageal lesions identified. No distal esophageal stricture. No uphill or downhill esophageal varices. No Parris-Tay tear. No evidence of erosive esophagitis by [place] criteria. No esophageal polyp or tumor mass identified. Z-line was seen at around 35 cm distal to the oral verge. Four quadrant biopsies were taken from the pink columnar epithelium and sent for any histopathologic evidence of intestinal metaplasia. No proximal gastric varices noted. Gastric fundus examination by retroflexion showed no polypoid lesions. No gastric ulcer, malignant mass, or vascular ectasia identified. Duodenal bulb showed no ulcer. Visualized second part of the duodenum was unremarkable. Multiple pinch biopsies, 4 in number, were taken from different areas of the second part of the duodenum, and tissues were also obtained from the duodenal bulb at 9 and 12 o'clock positions and sent for any histopathologic evidence of celiac disease. Multiple pinch biopsies were also obtained from the gastric antrum and proximal body and sent for PyloriTek test for H pylori and histopathology. No bleeding was noted from any of the visualized areas at the completion of examination. Photographs were taken of the duodenal bulb, gastric antrum, fundus, and distal esophagus. IMPRESSION: Normal study. The patient tolerated the procedure well. [facility] /[id number]
[2020-09-23 12:52] VITALS: BP 110/56; PULSE 82
== END 2020-09-23 10:04 | disposition home or self-care (01) ==
LOC: DL.ENDO 07:54
PROVIDERS: ATTEND Internal Medicine Gastroenterology
DX: K29.50 Unspecified chronic gastritis without bleeding (principal); R19.7 Diarrhea, unspecified; G89.4 Chronic pain syndrome; E11.9 Type 2 diabetes mellitus without complications; E78.5 Hyperlipidemia, unspecified; E03.9 Hypothyroidism, unspecified; M81.0 Age-related osteoporosis without current pathological fracture; Z88.8 Allergy status to other drugs, medicaments and biological substances; Z98.890 Other specified postprocedural states
CPT/HCPCS: 87077; J2250; J3010; J7042

== ENCOUNTER 2020-11-05 09:22 | Day surgery (SDC) | payer MEDICARE, MEDICAID ==
[2020-11-05] MEDS ORDERED: Dexamethasone 4 MG/ML SDV IV ONE (09:23)
[2020-11-05] MEDS ORDERED: Sodium Chloride 0.9% 10 ML Syringe IV ONE (09:23)
[2020-11-05] MEDS ORDERED: Midazolam 1 MG/ML 2 ML SDV IV ONE (09:23)
[2020-11-05] MEDS ORDERED: Acetaminophen/Codeine 300-30 MG Tab PO PRN (09:45)
[2020-11-05] MEDS ORDERED: Ondansetron 4 MG/2 ML SDV IVPUSH PRN (09:45)
[2020-11-05] MEDS ORDERED: Phenylephrine 10% Ophth Soln 5 ML Bot EYELF PRN (09:45)
[2020-11-05] MEDS ORDERED: Acetaminophen 325 MG Tab PO PRN (09:45)
[2020-11-05] MEDS: Cataract Ophth Solution EYELF ONE (09:52)
[2020-11-05] MEDS: Tropicamide 1% Ophth Soln 15 ML Bottle EYELF ONE (09:53)
[2020-11-05] MEDS: Timolol Maleate 0.5% Ophth Soln 5 ML Bottle EYELF ONE (09:53)
[2020-11-05] MEDS: Phenylephrine 10% Ophth Soln 5 ML Bot EYELF ONE (09:53)
[2020-11-05] MEDS: Povidone-Iodine 5% Sterile Ophth Soln 30 ML Bottle EYELF ONE ×2 (09:53→11:21)
[2020-11-05] MEDS: Proparacaine 0.5% Ophth Soln 15 ML Bottle EYELF ONE (09:54)
[2020-11-05] MEDS: Moxifloxacin 0.5% Ophth Soln 3 ML Bottle EYELF ONE (09:54)
[2020-11-05] MEDS: Sodium Chloride 0.9% 10 ML Syringe FLUSH PRN (10:02)
[2020-11-05] MEDS: Tetracaine HCl/PF 0.5% 4 ML Bottle EYELF ONE (11:20)
[2020-11-05] MEDS: Lidocaine 1% 30 ML SDV ONE (11:20)
[2020-11-05] MEDS: Apraclonidine 0.5% Ophth Soln 5 ML Bot EYELF ONE (11:21)
[2020-11-05] MEDS: Dexamethasone/Neomycin/Polymyxin B Ophth Oint 3.5 GM Tube EYELF ONE (11:21)
[2020-11-05] MEDS: Balanced Salt Solution Ophth Irrig 500 ML Bottle IOCULAR ONE (11:21)
[2020-11-05] MEDS: Diclofenac Sodium 0.1% Ophth Soln 5 ML Bottle EYELF ONE (11:21)
[2020-11-05] MEDS: Vancomycin 500 MG SDV EYELF ONE (11:22)
[2020-11-05] MEDS: Chondroitin Sulfate/Hyaluronate Sodium Ophth Inj 0.75 ML Syringe EYELF ONE (11:22)
[2020-11-05] MEDS: Insulin Lispro 100 Units/ML 3 ML Vial SUBCUT ONE (11:40)
[2020-11-05 13:30] VITALS: BP 109/56; PULSE 79
--- NOTE | 2020-11-06 08:20 | OR ---
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 PROCEDURE: Complex cataract with small pupil/Malyugin ring, left eye. ANESTHESIA: Topical/local MAC. COMPLICATIONS: None. INDICATION: Ms. Bocanegra was seen in the clinic. She is unhappy with her vision. She has difficulty seeing pill bottles, difficulty sewing, difficulty with seeing the clock, difficulty with bright lights and glare. Her examination reveals visually significant mixed cataract. I explained options, offered cataract surgery, and I explained risks including, but not limited to infection, retinal detachment, loss of vision, need for additional surgery, and risks associated with anesthesia. We discussed implant options. She has requested a monofocal implant. Examination shows limited pupillary dilation with multiple areas of posterior synechiae. I explained that cataract surgery would be complex if the risk profile was slightly increased including the potential for capsular/lenticular complications. She also has a history of macular hole. I explained that her ultimate visual potential would likely be limited by retinal health. OPERATIVE DESCRIPTION: After informed consent was obtained and the risks, benefits, and alternatives were explained, the patient was brought to the operative suite and topical anesthesia was administered. The patient was then prepped and draped in the sterile fashion and attention was placed on the left eye. A sterile lid speculum was placed into the left eye to allow operative exposure. A full-thickness paracentesis was made in the temporal portion of the operative eye. Preservative-free lidocaine 0.1 mL was injected into the anterior chamber followed by viscoelastic. A full-thickness corneal incision was then made into the anterior chamber. A bent needle cystotome was used to create a small sampson in the anterior capsule. The capsulorrhexis forceps was then used to create a 360-degree curvilinear capsulorrhexis. The nucleus was then removed using a phacoemulsification handpiece and the remaining cortical material was then removed with irrigation and aspiration handpiece. Following removal of the cortical material, the capsular bag was then inspected and noted to be free of any holes or tears. Viscoelastic was then injected into the capsular bag and the intraocular lens was inserted into the capsular bag. The viscoelastic material was then removed from both the anterior and posterior chambers and from behind the IOL. The lens and capsular bag were then reinspected. The IOL was well centered and the capsular bag intact. The wound and paracentesis sites were inspected and hydrated with balanced saline solution. Both were found to be self- sealing. The intraocular pressure was assessed digitally and found to be within normal range. A good red reflex was noted at the completion of the procedure. No complications occurred during the operation. At the completion of the procedure, Maxitrol, Voltaren, and Iopidine drops were placed into the operative eye. A sterile eye shield was placed over the operative eye and the patient was transported to the postoperative recovery area having tolerated the procedure well. Postoperative instructions were given along with a postoperative appointment. The patient was advised to call with any questions or concerns. [facility] /[id number]
== END 2020-11-05 13:30 | disposition home or self-care (01) ==
LOC: DL.SDS 09:22
PROVIDERS: ATTEND Ophthalmology
DX: E11.36 Type 2 diabetes mellitus with diabetic cataract (principal); H26.8 Other specified cataract; E03.9 Hypothyroidism, unspecified; E78.5 Hyperlipidemia, unspecified; E66.9 Obesity, unspecified; Z68.31 Body mass index [BMI] 31.0-31.9, adult; Z88.1 Allergy status to other antibiotic agents; Z88.8 Allergy status to other drugs, medicaments and biological substances; Z79.4 Long term (current) use of insulin; Z79.890 Hormone replacement therapy; Z79.899 Other long term (current) drug therapy
CPT/HCPCS: 00142; 82947; A9270-GY; J1100; J1815-GY; J2250; J3370; V2632

== ENCOUNTER 2020-11-12 09:54 | Day surgery (SDC) | payer MEDICARE, MEDICAID ==
[~2020-11-12 09:54] MED LIST changes: +Acetaminophen 325 MG Tab PO PRN; +Acetaminophen/Codeine 300-30 MG Tab PO PRN; +Cataract Ophth Solution EYERT ONE; -Dextrose 5%-0.45% NaCl 1,000 ML IV SCH; -Midazolam 1 MG/ML 2 ML SDV IV ONE; -Midazolam 1 MG/ML 2 ML SDV ONE; +Moxifloxacin 0.5% Ophth Soln 3 ML Bottle EYERT ONE; +Ondansetron 4 MG/2 ML SDV IVPUSH PRN; +Phenylephrine 10% Ophth Soln 5 ML Bot EYERT ONE; +Phenylephrine 10% Ophth Soln 5 ML Bot EYERT PRN; +Povidone-Iodine 5% Sterile Ophth Soln 30 ML Bottle EYERT ONE; +Proparacaine 0.5% Ophth Soln 15 ML Bottle EYERT ONE; -Sodium Chloride 0.9% 10 ML Syringe FLUSH PRN; +Timolol Maleate 0.5% Ophth Soln 5 ML Bottle EYERT ONE; +Tropicamide 1% Ophth Soln 15 ML Bottle EYERT ONE; -fentaNYL 100 MCG/2 ML SDV IV ONE; -fentaNYL 100 MCG/2 ML SDV ONE
[2020-11-12] MEDS ORDERED: Dexamethasone 4 MG/ML SDV IV ONE (09:55)
[2020-11-12] MEDS ORDERED: Midazolam 1 MG/ML 2 ML SDV IV ONE (09:55)
[2020-11-12] MEDS ORDERED: Sodium Chloride 0.9% 10 ML Syringe IV ONE (09:55)
[2020-11-12] MEDS ORDERED: 50% Dextrose in Water 50 ML Syringe IV PRN ×2 (10:14→11:51)
[2020-11-12] MEDS ORDERED: Glucagon,Human Recombinant 1 MG Vial IM PRN ×2 (10:14→11:51)
[2020-11-12] MEDS: Insulin NPH HUM/REG Insulin HM 100 UNIT/ML 3 ML Vial SQ ONE ×2 (10:24→12:00)
[2020-11-12] MEDS ORDERED: Tetracaine HCl/PF 0.5% 4 ML Bottle EYERT ONE (10:49)
[2020-11-12] MEDS ORDERED: Povidone-Iodine 5% Sterile Ophth Soln 30 ML Bottle EYERT ONE (10:49)
[2020-11-12] MEDS ORDERED: Diclofenac Sodium 0.1% Ophth Soln 5 ML Bottle EYERT ONE (10:52)
[2020-11-12] MEDS ORDERED: Apraclonidine 0.5% Ophth Soln 5 ML Bot EYERT ONE (10:52)
[2020-11-12] MEDS ORDERED: Dexamethasone/Neomycin/Polymyxin B Ophth Oint 3.5 GM Tube EYERT ONE (10:52)
[2020-11-12] MEDS ORDERED: Chondroitin Sulfate/Hyaluronate Sodium Ophth Inj 0.75 ML Syringe EYERT ONE (10:53)
[2020-11-12] MEDS ORDERED: Vancomycin 500 MG SDV ONE (10:53)
[2020-11-12] MEDS ORDERED: Balanced Salt Solution Ophth Irrig 500 ML Bottle IOCULAR ONE (10:53)
[2020-11-12] MEDS ORDERED: Lidocaine 1% 30 ML SDV ONE (10:54)
[2020-11-12 11:33] VITALS: BP 112/64
[2020-11-12] MEDS ORDERED: Insulin NPH HUM/REG Insulin HM 100 UNIT/ML 3 ML Vial SQ ONE (11:51)
[2020-11-12 12:43] VITALS: PULSE 78
--- NOTE | 2020-11-13 08:17 | OR ---
DATE: 11/12/2020 PREOPERATIVE DIAGNOSIS: Visually significant mixed cataract, right eye. POSTOPERATIVE DIAGNOSIS: Visually significant mixed cataract, right eye. PROCEDURE: Extracapsular cataract extraction with intraocular lens implant, right eye. ANESTHESIA: Topical/local MAC. COMPLICATIONS: None. INDICATION: Ms. Bocanegra was seen in the clinic with complaints of blurred vision. She is unhappy with her vision, difficulty with seeing pill bottles, difficulty sewing, difficulty with light sensitivity and glare. Examination reveals visually significant mixed cataract. She does also have a history of a macular hole. I did explain that ultimate visual potential will likely be limited by retinal health. She is very motivated to proceed with cataract surgery. I explained the risks, including the potential for infection, retinal detachment, loss of vision, need for additional surgery, and risks associated with anesthesia. We discussed implant options, and I recommended a monofocal implant. OPERATIVE DESCRIPTION: After informed consent was obtained and the risks, benefits, and alternatives were explained, the patient was brought to the operative suite and topical anesthesia was administered. The patient was then prepped and draped in the sterile fashion and attention was placed on the right eye. A sterile lid speculum was placed into the right eye to allow operative exposure. A full-thickness paracentesis was made in the temporal portion of the operative eye. Preservative-free lidocaine 0.1 mL was injected into the anterior chamber followed by viscoelastic. A full-thickness corneal incision was then made into the anterior chamber. A bent needle cystotome was used to create a small sampson in the anterior capsule. The capsulorrhexis forceps was then used to create a 360-degree curvilinear capsulorrhexis. The nucleus was then removed using a phacoemulsification handpiece and the remaining cortical material was then removed with irrigation and aspiration handpiece. Following removal of the cortical material, the capsular bag was then inspected and noted to be free of any holes or tears. Viscoelastic was then injected into the capsular bag and the intraocular lens was inserted into the capsular bag. The viscoelastic material was then removed from both the anterior and posterior chambers and from behind the IOL. The lens and capsular bag were then reinspected. The IOL was well centered and the capsular bag intact. The wound and paracentesis sites were inspected and hydrated with balanced saline solution. Both were found to be self-sealing. The intraocular pressure was assessed digitally and found to be within normal range. A good red reflex was noted at the completion of the procedure. No complications occurred during the operation. At the completion of the procedure, Maxitrol, Voltaren, and Iopidine drops were placed into the operative eye. A sterile eye shield was placed over the operative eye and the patient was transported to the postoperative recovery area having tolerated the procedure well. Postoperative instructions were given along with a postoperative appointment. The patient was advised to call with any questions or concerns. [facility] /[id number]
== END 2020-11-12 12:15 | disposition home or self-care (01) ==
LOC: DL.SDS 09:54
PROVIDERS: ATTEND Ophthalmology
DX: E11.36 Type 2 diabetes mellitus with diabetic cataract (principal); H26.8 Other specified cataract; E66.9 Obesity, unspecified; M48.061 Spinal stenosis, lumbar region without neurogenic claudication; F41.8 Other specified anxiety disorders; S32.000A Wedge compression fracture of unspecified lumbar vertebra, initial encounter for closed fracture; E03.9 Hypothyroidism, unspecified; Z68.31 Body mass index [BMI] 31.0-31.9, adult; Z98.890 Other specified postprocedural states; Z79.899 Other long term (current) drug therapy; Z79.4 Long term (current) use of insulin; Z88.8 Allergy status to other drugs, medicaments and biological substances; Z88.1 Allergy status to other antibiotic agents
CPT/HCPCS: 00142; 82947; A9270-GY; J1100; J1815-GY; J2250; J3370; V2632

== ENCOUNTER 2021-11-01 01:02 | Inpatient (IN) | payer MEDICARE, MEDICAID ==
[2021-11-01] MEDS ORDERED: Sodium Chloride 0.9% 10 ML Syringe FLUSH PRN (02:06)
[2021-11-01 02:42] LABS: ANION GAP 8.8 mEq/L (7-13); CHLORIDE,CL 102 mmol/L (98-107); SODIUM,NA 140 mmol/L (136-145)
[2021-11-01 03:01] LABS: CORONAVIRUS COVID-19 NAA NEGATIVE (NEGATIVE)
[2021-11-01] MEDS: Iopamidol 612 MG/ML 100 ML Bottle IVPUSH ONE (03:20)
[2021-11-01] MEDS ORDERED: HYDROmorphone 0.5 MG/0.5 ML Syringe IVPUSH PRN (04:54)
[2021-11-01] MEDS ORDERED: Sodium Chloride 0.9% 500 ML IV SCH (05:45)
[2021-11-01] MEDS ORDERED: Promethazine 25 MG/ML SDV IM PRN (10:52)
[2021-11-01] MEDS ORDERED: Albuterol/Ipratropium 3.0-0.5 MG/3 ML Neb Soln NEB PRN (10:52)
[2021-11-01] MEDS ORDERED: Acetaminophen 325 MG Tab PO PRN (10:52)
[2021-11-01] MEDS ORDERED: Bisacodyl 5 MG Tab PO PRN (10:52)
[2021-11-01] MEDS ORDERED: Ondansetron 4 MG/2 ML SDV IVPUSH PRN (10:52)
[2021-11-01] MEDS ORDERED: Polyethylene Glycol 3350 Powder 17 GM Packet PO PRN (10:52)
[2021-11-01] MEDS ORDERED: DICLOFENAC SODIUM 1% TOP PRN (10:56)
[2021-11-01] MEDS ORDERED: Magnesium Hydroxide 400 MG/5 ML Susp 30 ML Cup PO PRN (10:56)
[2021-11-01] MEDS ORDERED: CICLOPIROX TOP PRN (10:56)
[2021-11-01] MEDS ORDERED: Ondansetron 4 MG Tab.DIS PO PRN (10:57)
[2021-11-01] MEDS ORDERED: Methylcellulose Powder 479 GM Jar PO PRN (10:57)
[2021-11-01] MEDS ORDERED: Nystatin Topical Powder 30 GM Bottle TOP PRN (10:57)
[2021-11-01] MEDS ORDERED: TROLAMINE SALICYLATE TOP SCH (11:00)
[2021-11-01] MEDS ORDERED: Loperamide 2 MG Cap PO PRN (11:00)
[2021-11-01] MEDS: Sodium Chloride 0.9% 1,000 ML IV SCH (12:00)
[2021-11-01] MEDS: Carboxymethylcellulose Sodium 1% Ophth Gel 0.4 ML UD EYEBOTH SCH ×3 (14:13→21:06)
[2021-11-01] MEDS: Acetaminophen 500 MG Tab PO SCH ×2 (14:13→21:06)
[2021-11-01] MEDS ORDERED: 50% Dextrose in Water 50 ML Syringe IVPUSH PRN (18:41)
[2021-11-01] MEDS ORDERED: Glucagon,Human Recombinant 1 MG Vial IM PRN (18:41)
[2021-11-01] MEDS ORDERED: Magnesium Sulfate/Water 2 GM in Premix Bag 1 BAG IV ONE (20:53)
[2021-11-01] MEDS: Melatonin 3 MG Tab PO SCH (21:06)
[2021-11-01] MEDS: Insulin Glarg,Human.Rec.Analog 100 Unit/ML SUBCUT SCH (21:08)
[2021-11-01] MEDS ORDERED: traZODone 50 MG Tab PO ONE (23:47)
[2021-11-01] MEDS ORDERED: HYDROmorphone 0.5 MG/0.5 ML Syringe IVPUSH ONE (23:48)
[2021-11-01] MEDS ORDERED: QUEtiapine 25 MG Tab PO ONE (23:54)
[2021-11-02] MEDS ORDERED: Morphine 2 MG/ML SYRINGE IVPUSH ONE
[2021-11-02] MEDS: Iopamidol 612 MG/ML 100 ML Bottle IVPUSH ONE (02:21)
[2021-11-02] MEDS: Levothyroxine 112 MCG Tab PO SCH (05:58)
[2021-11-02] MEDS: Omeprazole 20 MG Cap.CR PO SCH (05:58)
[2021-11-02 06:56] LABS: ANION GAP 11.6 mEq/L (7-13); CHLORIDE,CL 104 mmol/L (98-107); SODIUM,NA 140 mmol/L (136-145)
[2021-11-02 06:57] LABS: PTT,PARTIAL THROMBOPLSTIN TIME 24.4 SEC (22.0-34.0)
[2021-11-02] MEDS ORDERED: Magnesium Hydroxide 400 MG/5 ML Susp 30 ML Cup PO PRN (07:48)
[2021-11-02] MEDS ORDERED: METHYLCELLULOSE PO PRN (07:48)
[2021-11-02] MEDS ORDERED: Nystatin Topical Powder 30 GM Bottle TOP PRN (07:48)
[2021-11-02] MEDS ORDERED: Ondansetron 4 MG Tab.DIS PO PRN (07:48)
[2021-11-02] MEDS ORDERED: Loperamide 2 MG Cap PO SCH (08:00)
[2021-11-02] MEDS ORDERED: Morphine 15 MG Tab.ER PO SCH (08:00)
[2021-11-02] MEDS ORDERED: Baclofen 10 MG Tab PO ONE ×2 (08:00)
[2021-11-02] MEDS: Losartan 25 MG Tab PO SCH (08:26)
[2021-11-02] MEDS: Venlafaxine 37.5 MG Cap.ER PO SCH (08:27)
[2021-11-02] MEDS: Montelukast 10 MG Tab PO SCH (08:27)
[2021-11-02] MEDS: Donepezil 10 MG Tab PO SCH (08:27)
[2021-11-02] MEDS: Insulin Glarg,Human.Rec.Analog 100 Unit/ML SUBCUT SCH ×2 (08:37→21:03)
[2021-11-02] MEDS: Insulin Lispro 100 Units/ML 3 ML Vial SUBCUT SCH ×3 (08:50→19:03)
[2021-11-02] MEDS ORDERED: Levothyroxine 112 MCG Tab PO SCH (09:00)
[2021-11-02] MEDS ORDERED: Non-Formulary Medication 1 Each (Fexofenadine Hcl 60 MG Tablet) PO SCH ×2 (09:00)
[2021-11-02] MEDS ORDERED: MINERAL OIL EYEBOTH SCH ×2 (09:00)
[2021-11-02] MEDS ORDERED: Non-Formulary Medication 1 Each (Omeprazole [Omeprazole] 40 MG Capsule.Dr) PO SCH (09:00)
[2021-11-02] MEDS ORDERED: Escitalopram 10 MG Tab PO SCH (09:00)
[2021-11-02] MEDS ORDERED: [UNRECOGNIZED DRUG - OTHER] EYEBOTH SCH ×2 (09:00)
[2021-11-02] MEDS ORDERED: Losartan 25 MG Tab PO SCH (09:00)
[2021-11-02] MEDS ORDERED: Venlafaxine 150 MG CAP.ER PO SCH (09:00)
[2021-11-02] MEDS ORDERED: Montelukast 10 MG Tab PO SCH (09:00)
[2021-11-02] MEDS ORDERED: PETROLATUM WHITE EYEBOTH SCH ×2 (09:00)
[2021-11-02] MEDS: Morphine 15 MG Tab.ER PO SCH ×2 (11:36→21:05)
[2021-11-02] MEDS: Gabapentin 400 MG Cap PO SCH ×3 (11:37→21:09)
[2021-11-02] MEDS: Sodium Chloride 0.9% 1,000 ML IV SCH (12:04)
[2021-11-02] MEDS: Carboxymethylcellulose Sodium 1% Ophth Gel 0.4 ML UD EYEBOTH SCH ×4 (12:41→21:12)
[2021-11-02] MEDS: Acetaminophen 500 MG Tab PO SCH ×3 (12:44→21:11)
[2021-11-02] MEDS ORDERED: Haloperidol Lactate 5 MG/ML SDV IVPUSH ONE (13:30)
[2021-11-02] MEDS: Morphine 15 MG Tab PO SCH ×3 (17:28→21:06)
[2021-11-02] MEDS: Cholecalciferol (Vitamin D3) 25 MCG Tab PO SCH (19:01)
[2021-11-02] MEDS ORDERED: Non-Formulary Medication 1 Each (Melatonin [Melatonin] 5 MG Tablet) PO SCH (21:00)
[2021-11-02] MEDS: Melatonin 3 MG Tab PO SCH (21:11)
[2021-11-02] MEDS: traZODone 50 MG Tab PO SCH (21:13)
[2021-11-03] MEDS: Omeprazole 20 MG Cap.CR PO SCH (05:13)
[2021-11-03] MEDS: Levothyroxine 112 MCG Tab PO SCH (05:13)
[2021-11-03 07:00] LABS: ANION GAP 13.2 mEq/L (7-13); CHLORIDE,CL 105 mmol/L (98-107); SODIUM,NA 142 mmol/L (136-145)
[2021-11-03 07:06] LABS: PTT,PARTIAL THROMBOPLSTIN TIME 24.2 SEC (22.0-34.0)
[2021-11-03] MEDS ORDERED: Potassium Chloride 10 MEQ Tab.ER PO ONE (07:42)
[2021-11-03] MEDS: Insulin Lispro 100 Units/ML 3 ML Vial SUBCUT SCH ×3 (07:57→17:23)
[2021-11-03] MEDS: Insulin Glarg,Human.Rec.Analog 100 Unit/ML SUBCUT SCH ×2 (08:06→20:49)
[2021-11-03] MEDS: Carboxymethylcellulose Sodium 1% Ophth Gel 0.4 ML UD EYEBOTH SCH ×4 (08:07→20:51)
[2021-11-03] MEDS: Cholecalciferol (Vitamin D3) 25 MCG Tab PO SCH (08:07)
[2021-11-03] MEDS: Donepezil 10 MG Tab PO SCH (08:07)
[2021-11-03] MEDS: Gabapentin 400 MG Cap PO SCH ×3 (08:08→20:57)
[2021-11-03] MEDS: Morphine 15 MG Tab.ER PO SCH ×2 (08:09→20:52)
[2021-11-03] MEDS: Acetaminophen 500 MG Tab PO SCH ×3 (08:10→20:54)
[2021-11-03] MEDS: Venlafaxine 37.5 MG Cap.ER PO SCH (08:11)
[2021-11-03] MEDS: Losartan 25 MG Tab PO SCH (08:11)
[2021-11-03] MEDS: Montelukast 10 MG Tab PO SCH (08:11)
[2021-11-03] MEDS: Morphine 15 MG Tab PO SCH ×4 (08:12→20:56)
[2021-11-03] MEDS ORDERED: Calcium Carbonate/Vitamin D3 1250 MG-5 MCG Tab PO SCH ×2 (09:00→18:00)
[2021-11-03] MEDS: QUEtiapine 25 MG Tab PO SCH (12:17)
[2021-11-03] MEDS ORDERED: METHOCARBAMOL 750 MG PO PRN (13:51)
[2021-11-03] MEDS ORDERED: DULAGLUTIDE 1.5 MG/0.5 ML SQ SCH (15:00)
[2021-11-03] MEDS: Melatonin 3 MG Tab PO SCH (20:53)
[2021-11-03] MEDS: traZODone 50 MG Tab PO SCH (20:55)
[2021-11-04] MEDS: Levothyroxine 112 MCG Tab PO SCH (05:03)
[2021-11-04] MEDS: Omeprazole 20 MG Cap.CR PO SCH (05:03)
[2021-11-04 07:33] LABS: ANION GAP 11.9 mEq/L (7-13); CHLORIDE,CL 105 mmol/L (98-107); SODIUM,NA 142 mmol/L (136-145)
[2021-11-04] MEDS: Morphine 15 MG Tab PO SCH (08:19)
[2021-11-04] MEDS: Montelukast 10 MG Tab PO SCH (08:20)
[2021-11-04] MEDS: QUEtiapine 25 MG Tab PO SCH (08:20)
[2021-11-04] MEDS: Cholecalciferol (Vitamin D3) 25 MCG Tab PO SCH (08:20)
[2021-11-04] MEDS: Gabapentin 400 MG Cap PO SCH (08:21)
[2021-11-04] MEDS: Venlafaxine 37.5 MG Cap.ER PO SCH (08:21)
[2021-11-04] MEDS: Losartan 25 MG Tab PO SCH (08:22)
[2021-11-04] MEDS: Morphine 15 MG Tab.ER PO SCH (08:23)
[2021-11-04] MEDS: Acetaminophen 500 MG Tab PO SCH (08:24)
[2021-11-04] MEDS: Donepezil 10 MG Tab PO SCH (08:24)
[2021-11-04] MEDS: Carboxymethylcellulose Sodium 1% Ophth Gel 0.4 ML UD EYEBOTH SCH (08:25)
[2021-11-04] MEDS: Insulin Lispro 100 Units/ML 3 ML Vial SUBCUT SCH (08:26)
[2021-11-04] MEDS: Insulin Glarg,Human.Rec.Analog 100 Unit/ML SUBCUT SCH (08:28)
[2021-11-04] MEDS ORDERED: METHOCARBAMOL 750 MG PO SCH (09:00)
[2021-11-04 10:14] VITALS: BP 121/57; PULSE 66
== END 2021-11-04 09:40 | disposition other institution (70) | DRG 312 ==
LOC: DL.ED 01:02 → DL.MS 07:41
PROVIDERS: ADMIT Internal Medicine; ATTEND Internal Medicine
DX: R55 Syncope and collapse (principal); F11.20 Opioid dependence, uncomplicated; S36.112A Contusion of liver, initial encounter; T50.915A Adverse effect of multiple unspecified drugs, medicaments and biological substances, initial encounter; E78.5 Hyperlipidemia, unspecified; S09.90XA Unspecified injury of head, initial encounter; E66.9 Obesity, unspecified; M48.061 Spinal stenosis, lumbar region without neurogenic claudication; W18.2XXA Fall in (into) shower or empty bathtub, initial encounter; M47.816 Spondylosis without myelopathy or radiculopathy, lumbar region; Z91.81 History of falling; R29.6 Repeated falls; H54.7 Unspecified visual loss; H35.343 Macular cyst, hole, or pseudohole, bilateral; G47.00 Insomnia, unspecified; K58.9 Irritable bowel syndrome, unspecified; R41.3 Other amnesia; R32 Unspecified urinary incontinence; K59.09 Other constipation; G89.29 Other chronic pain; M54.9 Dorsalgia, unspecified; E11.65 Type 2 diabetes mellitus with hyperglycemia; E83.42 Hypomagnesemia; R74.8 Abnormal levels of other serum enzymes; E88.09 Other disorders of plasma-protein metabolism, not elsewhere classified; M13.0 Polyarthritis, unspecified; Z68.27 Body mass index [BMI] 27.0-27.9, adult; Z87.81 Personal history of (healed) traumatic fracture; Z98.1 Arthrodesis status; M19.90 Unspecified osteoarthritis, unspecified site; M81.0 Age-related osteoporosis without current pathological fracture; F32.A Depression, unspecified; F41.9 Anxiety disorder, unspecified; E10.40 Type 1 diabetes mellitus with diabetic neuropathy, unspecified; Z90.710 Acquired absence of both cervix and uterus; M71.552 Other bursitis, not elsewhere classified, left hip; M71.551 Other bursitis, not elsewhere classified, right hip; E03.9 Hypothyroidism, unspecified; E87.6 Hypokalemia; R00.0 Tachycardia, unspecified; R79.1 Abnormal coagulation profile; E55.9 Vitamin D deficiency, unspecified; Z88.1 Allergy status to other antibiotic agents; Z88.8 Allergy status to other drugs, medicaments and biological substances; Z79.890 Hormone replacement therapy; Z79.4 Long term (current) use of insulin; Z79.899 Other long term (current) drug therapy; Z20.822 Contact with and (suspected) exposure to COVID-19
CPT/HCPCS: 0240U; 36415; 70450; 70551; 71260; 72125; 72128; 72131; 74177; 80053; 81003; 82306; 82947; 83605; 83735; 84439; 84443; 84484; 85025; 85379; 85610; 85730; 93005; 93880; 97161; 97165; A9270-GY; J1170; J1815-GY; J3475; J7030; J7040; Q9967; U0002

== ENCOUNTER 2023-04-14 08:48 | Inpatient (IN) | payer MEDICARE, MEDICAID ==
[2023-04-14] MEDS ORDERED: Sodium Chloride 0.9% 1,000 ML IV ONE ×2 (08:49→09:47)
[2023-04-14 09:13] LABS: HEMATOCRIT 44.1 % (37.0-47.0); HEMOGLOBIN 13.5 g/dL (12.0-16.0); MEAN CORPUSCULAR HEMOGLOBIN 31.2 pg (27.0-34.0); MEAN CORPUSCULAR HGB CONC 30.6 g/dL (33.0-35.0); MEAN CORPUSCULAR VOLUME 101.8 fL (80-100); PLATELET COUNT,PLT 315 10^3/uL (150-450); RED BLOOD CELL COUNT 4.33 10^6/uL (4.2-5.4); WHITE BLOOD CELL COUNT,WBC 16.8 10^3/uL (5.0-10.0)
[2023-04-14 09:35] LABS: BASOPHILS PERCENT AUTO 0.2 % (0.0-1.0); LYMPHOCYTES PERCENT AUTO 9.9 % (20.5-50.1); MONOCYTES PERCENT AUTO 8.5 % (2-8); NEUTROPHILS PERCENT AUTO 81.4 % (42.2-75.2)
[2023-04-14 09:37] LABS: ALANINE AMINOTRANSFERASE,ALT 18 U/L (14-59); ALBUMIN 3.9 g/dL (3.4-5.0); ALKALINE PHOSPHATASE 215 U/L (46-116); ANION GAP 36.3 mEq/L (7-13); ASPARTATE AMNIOTRANSFERASE,AST 23 U/L (15-37); BILIRUBIN TOTAL 0.9 mg/dL (0.2-1.0); BLOOD UREA NITROGEN,BUN 33 mg/dL (7-18); BUN/CREATININE RATIO 14.5 (No establ ref range); CALCIUM 10.1 mg/dL (8.5-10.1); CARBON DIOXIDE,CO2 14 mmol/L (21-32); CHLORIDE,CL 86 mmol/L (98-107); CREATININE 2.28 mg/dL (0.55-1.02); POTASSIUM,K 6.3 mmol/L (3.5-5.1); SODIUM,NA 130 mmol/L (136-145)
[2023-04-14 09:37] LABS: APPEARANCE,URINE SLIGHTLY CLOUDY (CLEAR); BILIRUBIN,URINE NEGATIVE (NEGATIVE); COLOR,URINE YELLOW (YELLOW); GLUCOSE,URINE >=1000 (NEGATIVE); KETONES,URINE >=160 (NEGATIVE); LEUKOCYTE ESTERASE,URINE NEGATIVE (NEGATIVE); NITRITE,URINE NEGATIVE (NEGATIVE); OCCULT BLOOD,URINE LARGE (NEGATIVE); PROTEIN,URINE NEGATIVE (NEGATIVE); UROBILINOGEN,URINE 0.2 mg/dL (0.2-1.0)
[2023-04-14 09:43] LABS: BASE EXCESS VENOUS -14.1 mmol/l ((-2)-(+3)); BICARBONATE,VENOUS 16 mmol/l (19-25); O2 DELIVERY DEVICE NON REBR MASK; PCO2 VENOUS 53 mmHg (41-51); PO2 VENOUS 32 mmHg (35-42)
[2023-04-14] MEDS ORDERED: Lactated Ringers 1,000 ML IV ONE ×3 (09:44→14:40)
[2023-04-14 09:45] LABS: ESTIMATED GFR 22 mL/min (>=60)
[2023-04-14 09:53] LABS: AMORPHOUS SEDIMENT,URINE FEW /HPF (NOT SEEN); BACTERIA,URINE MODERATE /HPF (0-FEW/HPF); EPITHELIAL CELLS,URINE FEW /HPF (NOT SEEN); MUCUS,URINE FEW /LPF (NOT SEEN); RBC,URINE 20-30 /HPF (0-5); WBC,URINE 0-5 /HPF (0-5/HPF)
[2023-04-14 09:55] LABS: LYMPHOCYTES PERCENT MAN 8 % (20-50); MONOCYTES PERCENT MAN 4 % (2-8); SEG NEUTROPHILS PERCENT MAN 88 % (42-75)
[2023-04-14] MEDS ORDERED: cefTRIAXone 2 GM Vial IVPUSH ONE (09:57)
[2023-04-14] MEDS: Sodium Chloride 0.9% 10 ML Syringe FLUSH PRN (09:59)
[2023-04-14 10:08] LABS: POTASSIUM,K 5.6 mmol/L (3.5-5.1)
[2023-04-14 10:22] LABS: LACTIC ACID 6.7 mmol/L (0.4-2.0)
[2023-04-14 10:25] LABS: CORONAVIRUS COVID-19 NAA NEGATIVE (NEGATIVE); INFLUENZA A NAA NEGATIVE (NEGATIVE); INFLUENZA B NAA NEGATIVE (NEGATIVE); RESPIRATORY SYNCYTIAL VIR NAA NEGATIVE (NEGATIVE)
[2023-04-14 12:22] LABS: POTASSIUM,K 4.4 mmol/L (3.5-5.1)
[2023-04-14 13:45] LABS: POTASSIUM,K 4.4 mmol/L (3.5-5.1)
[2023-04-14] MEDS ORDERED: LORazepam 2 MG/ML SDV IVPUSH ONE ×2 (13:58→15:25)
[2023-04-14] MEDS ORDERED: Glucagon,Human Recombinant 1 MG Vial IM PRN (14:44)
[2023-04-14] MEDS ORDERED: Insulin Glarg,Human.Rec.Analog 100 Unit/ML 10 ML Vial SUBCUT ONE (14:44)
[2023-04-14] MEDS ORDERED: 50% Dextrose in Water 50 ML Syringe IVPUSH PRN (14:44)
[2023-04-14] MEDS ORDERED: Sodium Bicarbonate 8.4% 50 MEQ/50 ML Syringe IVPUSH ONE (14:45)
[2023-04-14] MEDS ORDERED: Norepinephrine Bit/D5W Premix 250 ML IV SCH (14:45)
[2023-04-14] MEDS ORDERED: Acetaminophen 325 MG Tab PO PRN (14:47)
[2023-04-14] MEDS ORDERED: Ondansetron 4 MG/2 ML SDV IVPUSH PRN (14:47)
[2023-04-14] MEDS ORDERED: Acetaminophen 650 MG Supp RECTAL PRN (14:47)
[2023-04-14] MEDS ORDERED: Polyethylene Glycol 3350 Powder 17 GM Packet PO PRN (14:47)
[2023-04-14] MEDS ORDERED: Sennosides/Docusate Sodium 50-8.6 MG Tab PO PRN (14:47)
[2023-04-14] MEDS ORDERED: Magnesium Hydroxide 400 MG/5 ML Susp 30 ML Cup PO PRN (14:47)
[2023-04-14] MEDS ORDERED: Albuterol/Ipratropium 3.0-0.5 MG/3 ML Neb Soln NEB PRN (14:47)
[2023-04-14 14:50] LABS: POTASSIUM,K 3.8 mmol/L (3.5-5.1)
[2023-04-14] MEDS ORDERED: Sodium Bicarbonate 100 MEQ in Dextrose 5% in Water 1,000 ML IV ONE ×2 (15:00)
[2023-04-14] MEDS: Lactated Ringers 1,000 ML IV SCH (15:48)
[2023-04-14] MEDS ORDERED: Piperacillin/Tazobactam 3.375 GM in Sodium Chloride 0.9% 100 ML IV SCH (18:00)
[2023-04-14] MEDS: Piperacillin/Tazobactam 2.25 GM in Sodium Chloride 0.9% 50 ML IV SCH (18:22)
[2023-04-14] MEDS ORDERED: LORazepam 2 MG/ML SDV IVPUSH PRN (18:23)
[2023-04-14] MEDS ORDERED: Flumazenil 0.1 MG/ML 5 ML MDV IVPUSH PRN (18:23)
[2023-04-14] MEDS: Hydrocortisone Sodium Succinate 100 MG/2 ML SDV IVPUSH SCH (18:27)
[2023-04-14 19:07] LABS: ANION GAP 16.8 mEq/L (7-13); CREATININE 1.17 mg/dL (0.55-1.02); EST CRCL DRUG DOSING (CG) 34.9 mL/min; MAGNESIUM 1.6 mg/dL (1.8-2.4); POTASSIUM,K 3.8 mmol/L (3.5-5.1)
[2023-04-14] MEDS ORDERED: Magnesium Sulfate/Water 2 GM in Premix Bag 1 BAG IV ONE (19:29)
[2023-04-14] MEDS: Insulin Lispro 100 Units/ML 3 ML Vial SUBCUT SCH (20:19)
[2023-04-14] MEDS: LORazepam 2 MG/ML SDV IVPUSH PRN (20:57)
[2023-04-15] MEDS: Insulin Lispro 100 Units/ML 3 ML Vial SUBCUT SCH ×4 (00:48→18:22)
[2023-04-15] MEDS: Piperacillin/Tazobactam 2.25 GM in Sodium Chloride 0.9% 50 ML IV SCH ×4 (00:49→23:43)
[2023-04-15] MEDS: Hydrocortisone Sodium Succinate 100 MG/2 ML SDV IVPUSH SCH ×4 (00:49→17:07)
[2023-04-15] MEDS: Lactated Ringers 1,000 ML IV SCH ×3 (01:22→17:49)
[2023-04-15] MEDS: LORazepam 2 MG/ML SDV IVPUSH PRN ×3 (01:29→21:25)
[2023-04-15 04:54] LABS: BASOPHILS PERCENT AUTO 0.1 % (0.0-1.0); EOSINOPHILS PERCENT AUTO 0.1 % (1.0-3.0); HEMATOCRIT 30.8 % (37.0-47.0); HEMOGLOBIN 10.3 g/dL (12.0-16.0); MEAN CORPUSCULAR HEMOGLOBIN 31.3 pg (27.0-34.0); MEAN CORPUSCULAR HGB CONC 33.4 g/dL (33.0-35.0); MEAN CORPUSCULAR VOLUME 93.6 fL (80-100); MONOCYTES PERCENT AUTO 4.7 % (2-8); NEUTROPHILS PERCENT AUTO 88.1 % (42.2-75.2); PLATELET COUNT,PLT 232 10^3/uL (150-450); RED BLOOD CELL COUNT 3.29 10^6/uL (4.2-5.4)
[2023-04-15 05:10] LABS: A/G RATIO 0.93; ALBUMIN 2.8 g/dL (3.4-5.0); ANION GAP 14.3 mEq/L (7-13); BILIRUBIN TOTAL 0.4 mg/dL (0.2-1.0); BUN/CREATININE RATIO 14.7 (No establ ref range); C-REACTIVE PROTEIN 5.02 ng/dL (<=0.30); CALCIUM 8.9 mg/dL (8.5-10.1); CREATININE 1.16 mg/dL (0.55-1.02); EST CRCL DRUG DOSING (CG) 35.2 mL/min; POTASSIUM,K 3.3 mmol/L (3.5-5.1); PROTEIN TOTAL,TP 5.8 g/dL (6.4-8.2)
[2023-04-15] MEDS: Pantoprazole 40 MG Vial IVPUSH SCH ×2 (05:50→16:50)
[2023-04-15] MEDS: HYDROmorphone 0.5 MG/0.5 ML Syringe IVPUSH PRN ×4 (06:03→23:41)
[2023-04-15] MEDS ORDERED: Potassium Chloride 20 MEQ in Premix Bag 1 BAG IV ONE ×4 (06:22→21:00)
[2023-04-15] MEDS ORDERED: Insulin Glarg,Human.Rec.Analog 100 Unit/ML 10 ML Vial SUBCUT ONE (08:20)
[2023-04-15 16:03] LABS: ANION GAP 15.1 mEq/L (7-13); CALCIUM 9.1 mg/dL (8.5-10.1); CREATININE 0.94 mg/dL (0.55-1.02); EST CRCL DRUG DOSING (CG) 43.43 mL/min; MAGNESIUM 1.7 mg/dL (1.8-2.4); POTASSIUM,K 3.1 mmol/L (3.5-5.1)
[2023-04-15 20:37] LABS: ANION GAP 10.8 mEq/L (7-13); CALCIUM 9.2 mg/dL (8.5-10.1); CREATININE 0.88 mg/dL (0.55-1.02); EST CRCL DRUG DOSING (CG) 46.4 mL/min; MAGNESIUM 1.6 mg/dL (1.8-2.4); POTASSIUM,K 2.8 mmol/L (3.5-5.1)
[2023-04-15] MEDS: Dextrose 5%-0.9% NaCl 1,000 ML IV SCH (21:00)
[2023-04-15] MEDS ORDERED: Magnesium Sulfate/Water 2 GM in Premix Bag 1 BAG IV ONE (21:00)
[2023-04-16] MEDS: Piperacillin/Tazobactam 2.25 GM in Sodium Chloride 0.9% 50 ML IV SCH ×3 (00:27→16:38)
[2023-04-16] MEDS ORDERED: Potassium Chloride 20 MEQ in Premix Bag 1 BAG IV ONE ×3 (01:00→08:43)
[2023-04-16] MEDS: HYDROmorphone 0.5 MG/0.5 ML Syringe IVPUSH PRN ×6 (02:06→22:45)
[2023-04-16] MEDS: LORazepam 2 MG/ML SDV IVPUSH PRN ×3 (03:32→22:45)
[2023-04-16] MEDS ORDERED: 50% Dextrose in Water 50 ML Syringe IVPUSH PRN (04:16)
[2023-04-16] MEDS ORDERED: Glucagon,Human Recombinant 1 MG Vial IM PRN (04:16)
[2023-04-16] MEDS: Insulin Lispro 100 Units/ML 3 ML Vial SUBCUT SCH ×11 (04:58→20:09)
[2023-04-16] MEDS: Dextrose 5%-0.9% NaCl 1,000 ML IV SCH ×3 (04:59→20:47)
[2023-04-16] MEDS: Pantoprazole 40 MG Vial IVPUSH SCH ×2 (05:01→17:25)
[2023-04-16 06:33] LABS: HEMATOCRIT 31.5 % (37.0-47.0); HEMOGLOBIN 10.4 g/dL (12.0-16.0); LYMPHOCYTES PERCENT AUTO 10.5 % (20.5-50.1); MEAN CORPUSCULAR HEMOGLOBIN 30.9 pg (27.0-34.0); MEAN CORPUSCULAR VOLUME 93.5 fL (80-100); MONOCYTES PERCENT AUTO 8.7 % (2-8); NEUTROPHILS PERCENT AUTO 80.8 % (42.2-75.2); PLATELET COUNT,PLT 183 10^3/uL (150-450); RED BLOOD CELL COUNT 3.37 10^6/uL (4.2-5.4); WHITE BLOOD CELL COUNT,WBC 12.9 10^3/uL (5.0-10.0)
[2023-04-16 06:54] LABS: ALBUMIN 2.6 g/dL (3.4-5.0); ANION GAP 12.1 mEq/L (7-13); BILIRUBIN TOTAL 0.7 mg/dL (0.2-1.0); C-REACTIVE PROTEIN 2.65 ng/dL (<=0.30); CALCIUM 8.6 mg/dL (8.5-10.1); CREATININE 0.82 mg/dL (0.55-1.02); EST CRCL DRUG DOSING (CG) 49.79 mL/min; POTASSIUM,K 3.1 mmol/L (3.5-5.1); PROTEIN TOTAL,TP 5.7 g/dL (6.4-8.2)
[2023-04-16 06:58] LABS: A/G RATIO 0.84
[2023-04-16] MEDS: Sodium Chloride 0.9% 10 ML Syringe FLUSH PRN (08:57)
[2023-04-16] MEDS ORDERED: Vancomycin 1 GM SDV ONE (17:57)
[2023-04-17] MEDS: Insulin Lispro 100 Units/ML 3 ML Vial SUBCUT SCH ×7 (00:15→23:54)
[2023-04-17] MEDS: Piperacillin/Tazobactam 2.25 GM in Sodium Chloride 0.9% 50 ML IV SCH ×3 (00:18→16:49)
[2023-04-17] MEDS: HYDROmorphone 0.5 MG/0.5 ML Syringe IVPUSH PRN ×4 (03:16→23:36)
[2023-04-17] MEDS: Dextrose 5%-0.9% NaCl 1,000 ML IV SCH (05:39)
[2023-04-17] MEDS: Pantoprazole 40 MG Vial IVPUSH SCH ×2 (05:39→16:58)
[2023-04-17 06:12] LABS: BASOPHILS PERCENT AUTO 0.1 % (0.0-1.0); EOSINOPHILS PERCENT AUTO 0.7 % (1.0-3.0); HEMOGLOBIN 11.7 g/dL (12.0-16.0); LYMPHOCYTES PERCENT AUTO 17.6 % (20.5-50.1); MEAN CORPUSCULAR HEMOGLOBIN 31.3 pg (27.0-34.0); MEAN CORPUSCULAR HGB CONC 33.4 g/dL (33.0-35.0); MEAN CORPUSCULAR VOLUME 93.6 fL (80-100); MONOCYTES PERCENT AUTO 9.3 % (2-8); NEUTROPHILS PERCENT AUTO 72.3 % (42.2-75.2); PLATELET COUNT,PLT 186 10^3/uL (150-450); RED BLOOD CELL COUNT 3.74 10^6/uL (4.2-5.4); WHITE BLOOD CELL COUNT,WBC 8.5 10^3/uL (5.0-10.0)
[2023-04-17 06:25] LABS: ALBUMIN 2.9 g/dL (3.4-5.0); ANION GAP 12.4 mEq/L (7-13); BILIRUBIN TOTAL 1.1 mg/dL (0.2-1.0); BUN/CREATININE RATIO 8.3 (No establ ref range); C-REACTIVE PROTEIN 1.77 ng/dL (<=0.30); CALCIUM 8.9 mg/dL (8.5-10.1); CREATININE 0.6 mg/dL (0.55-1.02); EST CRCL DRUG DOSING (CG) 68.05 mL/min; MAGNESIUM 1.6 mg/dL (1.8-2.4); PROTEIN TOTAL,TP 6.4 g/dL (6.4-8.2)
[2023-04-17] MEDS: LORazepam 2 MG/ML SDV IVPUSH PRN ×3 (06:25→20:53)
[2023-04-17 06:38] LABS: A/G RATIO 0.83; POTASSIUM,K 2.4 mmol/L (3.5-5.1)
[2023-04-17] MEDS ORDERED: Potassium Chloride 20 MEQ in Premix Bag 1 BAG IV ONE (08:31)
[2023-04-17] MEDS ORDERED: Magnesium Sulfate/Water 2 GM in Premix Bag 1 BAG IV ONE (12:33)
[2023-04-17] MEDS: D5 1/2 NS w/ 40 mEq/L KCl 1,000 ML IV SCH (16:53)
[2023-04-17] MEDS: Acetaminophen/oxyCODONE 325-5 MG Tab PO PRN ×2 (17:03→20:48)
[2023-04-17] MEDS ORDERED: Potassium Chloride 10 MEQ Tab.ER PO SCH (18:00)
[2023-04-18] MEDS: Piperacillin/Tazobactam 2.25 GM in Sodium Chloride 0.9% 50 ML IV SCH ×3 (01:32→16:26)
[2023-04-18] MEDS: LORazepam 2 MG/ML SDV IVPUSH PRN ×5 (03:22→22:36)
[2023-04-18] MEDS: HYDROmorphone 0.5 MG/0.5 ML Syringe IVPUSH PRN ×5 (04:05→20:23)
[2023-04-18 06:13] LABS: BASOPHILS PERCENT AUTO 0.2 % (0.0-1.0); EOSINOPHILS PERCENT AUTO 1.9 % (1.0-3.0); HEMATOCRIT 34.2 % (37.0-47.0); HEMOGLOBIN 11.6 g/dL (12.0-16.0); LYMPHOCYTES PERCENT AUTO 23.9 % (20.5-50.1); MEAN CORPUSCULAR HEMOGLOBIN 31.3 pg (27.0-34.0); MEAN CORPUSCULAR HGB CONC 33.9 g/dL (33.0-35.0); MEAN CORPUSCULAR VOLUME 92.2 fL (80-100); PLATELET COUNT,PLT 165 10^3/uL (150-450); RED BLOOD CELL COUNT 3.71 10^6/uL (4.2-5.4); WHITE BLOOD CELL COUNT,WBC 5.7 10^3/uL (5.0-10.0)
[2023-04-18] MEDS: Insulin Lispro 100 Units/ML 3 ML Vial SUBCUT SCH ×3 (06:24→17:01)
[2023-04-18] MEDS: Pantoprazole 40 MG Vial IVPUSH SCH ×2 (06:25→16:25)
[2023-04-18 06:30] LABS: A/G RATIO 0.81; ALBUMIN 2.6 g/dL (3.4-5.0); BILIRUBIN TOTAL 1.8 mg/dL (0.2-1.0); BUN/CREATININE RATIO 11.3 (No establ ref range); C-REACTIVE PROTEIN 1.72 ng/dL (<=0.30); CALCIUM 8.6 mg/dL (8.5-10.1); CREATININE 0.62 mg/dL (0.55-1.02); EST CRCL DRUG DOSING (CG) 65.85 mL/min; PROTEIN TOTAL,TP 5.8 g/dL (6.4-8.2)
[2023-04-18] MEDS ORDERED: Potassium Chloride 20 MEQ in Premix Bag 1 BAG IV ONE (08:19)
[2023-04-18] MEDS: D5 1/2 NS w/ 40 mEq/L KCl 1,000 ML IV SCH (10:29)
[2023-04-18 19:38] LABS: CALCIUM 8.8 mg/dL (8.5-10.1); CREATININE 0.85 mg/dL (0.55-1.02); EST CRCL DRUG DOSING (CG) 48.03 mL/min
[2023-04-18 19:40] LABS: PROTHROMBIN TIME 10.1 SEC (9.0-12.0)
[2023-04-18] MEDS: Sodium Chloride 0.9% 10 ML Syringe FLUSH PRN (22:40)
[2023-04-19] MEDS: Insulin Lispro 100 Units/ML 3 ML Vial SUBCUT SCH ×4 (00:25→18:19)
[2023-04-19] MEDS: HYDROmorphone 0.5 MG/0.5 ML Syringe IVPUSH PRN ×5 (00:26→23:00)
[2023-04-19] MEDS: Piperacillin/Tazobactam 2.25 GM in Sodium Chloride 0.9% 50 ML IV SCH ×3 (00:31→17:29)
[2023-04-19] MEDS: LORazepam 2 MG/ML SDV IVPUSH PRN ×3 (03:01→20:30)
[2023-04-19] MEDS: D5 1/2 NS w/ 40 mEq/L KCl 1,000 ML IV SCH ×2 (03:25→23:15)
[2023-04-19] MEDS: Pantoprazole 40 MG Vial IVPUSH SCH ×2 (04:50→17:22)
[2023-04-19 06:36] LABS: BASOPHILS PERCENT AUTO 0.1 % (0.0-1.0); EOSINOPHILS PERCENT AUTO 3.3 % (1.0-3.0); HEMATOCRIT 34.6 % (37.0-47.0); HEMOGLOBIN 11.5 g/dL (12.0-16.0); LYMPHOCYTES PERCENT AUTO 26.6 % (20.5-50.1); MEAN CORPUSCULAR HEMOGLOBIN 31.1 pg (27.0-34.0); MEAN CORPUSCULAR HGB CONC 33.2 g/dL (33.0-35.0); MEAN CORPUSCULAR VOLUME 93.5 fL (80-100); MONOCYTES PERCENT AUTO 9.9 % (2-8); NEUTROPHILS PERCENT AUTO 60.1 % (42.2-75.2); PLATELET COUNT,PLT 185 10^3/uL (150-450); WHITE BLOOD CELL COUNT,WBC 7.7 10^3/uL (5.0-10.0)
[2023-04-19 06:58] LABS: A/G RATIO 0.76; ALBUMIN 2.6 g/dL (3.4-5.0); ANION GAP 13.5 mEq/L (7-13); BILIRUBIN TOTAL 0.9 mg/dL (0.2-1.0); BUN/CREATININE RATIO 5.7 (No establ ref range); CALCIUM 8.8 mg/dL (8.5-10.1); CREATININE 0.7 mg/dL (0.55-1.02); EST CRCL DRUG DOSING (CG) 58.33 mL/min; POTASSIUM,K 3.5 mmol/L (3.5-5.1)
[2023-04-19] MEDS ORDERED: 50% Dextrose in Water 50 ML Syringe IVPUSH PRN (10:46)
[2023-04-19] MEDS ORDERED: Glucagon,Human Recombinant 1 MG Vial IM PRN (10:46)
[2023-04-19] MEDS: Insulin Glarg,Human.Rec.Analog 100 Unit/ML 10 ML Vial SUBCUT SCH (11:01)
[2023-04-20] MEDS: Insulin Lispro 100 Units/ML 3 ML Vial SUBCUT SCH ×4 (00:12→16:59)
[2023-04-20] MEDS: LORazepam 2 MG/ML SDV IVPUSH PRN ×2 (01:30→12:15)
[2023-04-20] MEDS: HYDROmorphone 0.5 MG/0.5 ML Syringe IVPUSH PRN ×7 (01:30→23:57)
[2023-04-20] MEDS: Levothyroxine 112 MCG Tab PO SCH (05:47)
[2023-04-20] MEDS: Pantoprazole 40 MG Vial IVPUSH SCH ×2 (05:54→16:16)
[2023-04-20 06:35] LABS: BASOPHILS PERCENT AUTO 0.2 % (0.0-1.0); EOSINOPHILS PERCENT AUTO 3.4 % (1.0-3.0); HEMATOCRIT 34.1 % (37.0-47.0); HEMOGLOBIN 11.2 g/dL (12.0-16.0); MEAN CORPUSCULAR HEMOGLOBIN 30.8 pg (27.0-34.0); MEAN CORPUSCULAR HGB CONC 32.8 g/dL (33.0-35.0); MEAN CORPUSCULAR VOLUME 93.7 fL (80-100); MONOCYTES PERCENT AUTO 12.4 % (2-8); PLATELET COUNT,PLT 188 10^3/uL (150-450); RED BLOOD CELL COUNT 3.64 10^6/uL (4.2-5.4); WHITE BLOOD CELL COUNT,WBC 8.6 10^3/uL (5.0-10.0)
[2023-04-20 07:00] LABS: ALBUMIN 2.6 g/dL (3.4-5.0); ANION GAP 14.5 mEq/L (7-13); BILIRUBIN TOTAL 0.8 mg/dL (0.2-1.0); BUN/CREATININE RATIO 4.1 (No establ ref range); CALCIUM 9.3 mg/dL (8.5-10.1); CREATININE 0.97 mg/dL (0.55-1.02); EST CRCL DRUG DOSING (CG) 42.09 mL/min; POTASSIUM,K 3.5 mmol/L (3.5-5.1)
[2023-04-20 07:02] LABS: A/G RATIO 0.76
[2023-04-20] MEDS: Piperacillin/Tazobactam 2.25 GM in Sodium Chloride 0.9% 50 ML IV SCH ×4 (08:23→16:15)
[2023-04-20] MEDS: Insulin Glarg,Human.Rec.Analog 100 Unit/ML 10 ML Vial SUBCUT SCH (08:27)
[2023-04-20] MEDS: Acetaminophen/oxyCODONE 325-5 MG Tab PO PRN (12:28)
[2023-04-20] MEDS: D5 1/2 NS w/ 40 mEq/L KCl 1,000 ML IV SCH (17:24)
[2023-04-21] MEDS: Piperacillin/Tazobactam 2.25 GM in Sodium Chloride 0.9% 50 ML IV SCH ×3 (00:02→17:36)
[2023-04-21] MEDS: Insulin Lispro 100 Units/ML 3 ML Vial SUBCUT SCH ×4 (00:07→17:45)
[2023-04-21] MEDS: LORazepam 2 MG/ML SDV IVPUSH PRN ×2 (00:31→04:00)
[2023-04-21] MEDS: HYDROmorphone 0.5 MG/0.5 ML Syringe IVPUSH PRN (04:00)
[2023-04-21] MEDS: Pantoprazole 40 MG Vial IVPUSH SCH ×2 (04:15→17:32)
[2023-04-21] MEDS: Levothyroxine 112 MCG Tab PO SCH (06:09)
[2023-04-21 06:11] LABS: BASOPHILS PERCENT AUTO 0.2 % (0.0-1.0); EOSINOPHILS PERCENT AUTO 2.7 % (1.0-3.0); HEMATOCRIT 36.2 % (37.0-47.0); LYMPHOCYTES PERCENT AUTO 16.7 % (20.5-50.1); MEAN CORPUSCULAR HGB CONC 33.1 g/dL (33.0-35.0); MEAN CORPUSCULAR VOLUME 93.5 fL (80-100); MONOCYTES PERCENT AUTO 16.1 % (2-8); NEUTROPHILS PERCENT AUTO 64.3 % (42.2-75.2); PLATELET COUNT,PLT 234 10^3/uL (150-450); RED BLOOD CELL COUNT 3.87 10^6/uL (4.2-5.4)
[2023-04-21 06:35] LABS: ALBUMIN 2.8 g/dL (3.4-5.0); ANION GAP 14.5 mEq/L (7-13); BILIRUBIN TOTAL 0.7 mg/dL (0.2-1.0); BUN/CREATININE RATIO 4.6 (No establ ref range); CALCIUM 9.7 mg/dL (8.5-10.1); CREATININE 1.31 mg/dL (0.55-1.02); EST CRCL DRUG DOSING (CG) 31.17 mL/min; POTASSIUM,K 3.5 mmol/L (3.5-5.1); PROTEIN TOTAL,TP 6.5 g/dL (6.4-8.2)
[2023-04-21 06:36] LABS: A/G RATIO 0.76
[2023-04-21] MEDS ORDERED: Sodium Chloride 0.9% 10 ML Syringe FLUSH PRN (08:23)
[2023-04-21] MEDS: Insulin Glarg,Human.Rec.Analog 100 Unit/ML 10 ML Vial SUBCUT SCH (09:27)
[2023-04-21] MEDS: Sodium Chloride 0.9% 10 ML Syringe FLUSH SCH ×2 (09:34→22:02)
[2023-04-21] MEDS: Nystatin Ointment 15 GM Tube TOP SCH (22:02)
[2023-04-22] MEDS: Insulin Lispro 100 Units/ML 3 ML Vial SUBCUT SCH ×4 (00:37→17:21)
[2023-04-22] MEDS: Piperacillin/Tazobactam 2.25 GM in Sodium Chloride 0.9% 50 ML IV SCH ×3 (00:40→17:18)
[2023-04-22] MEDS: Pantoprazole 40 MG Vial IVPUSH SCH ×2 (05:45→17:12)
[2023-04-22] MEDS: Levothyroxine 112 MCG Tab PO SCH (05:56)
[2023-04-22 06:04] LABS: HEMATOCRIT 36.6 % (37.0-47.0); HEMOGLOBIN 14.3 g/dL (12.0-16.0); MEAN CORPUSCULAR HEMOGLOBIN 36.5 pg (27.0-34.0); MEAN CORPUSCULAR HGB CONC 39.1 g/dL (33.0-35.0); MEAN CORPUSCULAR VOLUME 93.4 fL (80-100); PLATELET COUNT,PLT 252 10^3/uL (150-450); RED BLOOD CELL COUNT 3.92 10^6/uL (4.2-5.4); WHITE BLOOD CELL COUNT,WBC 7.9 10^3/uL (5.0-10.0)
[2023-04-22 06:19] LABS: BASOPHILS PERCENT AUTO 0.4 % (0.0-1.0); EOSINOPHILS PERCENT AUTO 1.1 % (1.0-3.0); LYMPHOCYTES PERCENT AUTO 15.5 % (20.5-50.1)
[2023-04-22 06:24] LABS: ALBUMIN 2.9 g/dL (3.4-5.0); ANION GAP 15.1 mEq/L (7-13); BILIRUBIN TOTAL 0.6 mg/dL (0.2-1.0); BUN/CREATININE RATIO 7.9 (No establ ref range); CALCIUM 9.6 mg/dL (8.5-10.1); CREATININE 1.26 mg/dL (0.55-1.02); EST CRCL DRUG DOSING (CG) 32.4 mL/min; POTASSIUM,K 3.1 mmol/L (3.5-5.1); PROTEIN TOTAL,TP 6.8 g/dL (6.4-8.2)
[2023-04-22 06:36] LABS: A/G RATIO 0.74
[2023-04-22 06:48] LABS: EOSINOPHILS PERCENT MAN 1 % (1-3); LYMPHOCYTES PERCENT MAN 21 % (20-50); MONOCYTES PERCENT MAN 13 % (2-8); SEG NEUTROPHILS PERCENT MAN 65 % (42-75)
[2023-04-22] MEDS ORDERED: Potassium Chloride 20 MEQ in Premix Bag 1 BAG IV ONE (08:30)
[2023-04-22] MEDS: Sodium Chloride 0.9% 10 ML Syringe FLUSH SCH ×2 (08:42→20:59)
[2023-04-22] MEDS: Insulin Glarg,Human.Rec.Analog 100 Unit/ML 10 ML Vial SUBCUT SCH (09:15)
[2023-04-22] MEDS: Nystatin Ointment 15 GM Tube TOP SCH ×2 (10:58→20:30)
[2023-04-23] MEDS: Insulin Lispro 100 Units/ML 3 ML Vial SUBCUT SCH ×5 (00:34→20:57)
[2023-04-23] MEDS: Piperacillin/Tazobactam 2.25 GM in Sodium Chloride 0.9% 50 ML IV SCH (00:36)
[2023-04-23] MEDS: Acetaminophen 325 MG Tab PO PRN ×3 (01:03→20:56)
[2023-04-23] MEDS: Levothyroxine 112 MCG Tab PO SCH (05:34)
[2023-04-23] MEDS: Pantoprazole 40 MG Vial IVPUSH SCH ×2 (05:36→16:53)
[2023-04-23 06:32] LABS: BASOPHILS PERCENT AUTO 0.3 % (0.0-1.0); EOSINOPHILS PERCENT AUTO 2.5 % (1.0-3.0); HEMATOCRIT 32.4 % (37.0-47.0); HEMOGLOBIN 13.2 g/dL (12.0-16.0); LYMPHOCYTES PERCENT AUTO 21.1 % (20.5-50.1); MEAN CORPUSCULAR HEMOGLOBIN 37.7 pg (27.0-34.0); MEAN CORPUSCULAR HGB CONC 40.7 g/dL (33.0-35.0); MEAN CORPUSCULAR VOLUME 92.6 fL (80-100); MONOCYTES PERCENT AUTO 11.8 % (2-8); NEUTROPHILS PERCENT AUTO 64.3 % (42.2-75.2); PLATELET COUNT,PLT 269 10^3/uL (150-450)
[2023-04-23 07:03] LABS: ALBUMIN 2.6 g/dL (3.4-5.0); ANION GAP 15.6 mEq/L (7-13); BILIRUBIN TOTAL 0.7 mg/dL (0.2-1.0); BUN/CREATININE RATIO 6.6 (No establ ref range); CALCIUM 8.4 mg/dL (8.5-10.1); CREATININE 1.21 mg/dL (0.55-1.02); EST CRCL DRUG DOSING (CG) 33.74 mL/min; POTASSIUM,K 2.6 mmol/L (3.5-5.1)
[2023-04-23 07:16] LABS: A/G RATIO 0.76
[2023-04-23] MEDS ORDERED: Potassium Chloride 10 MEQ in Premix Bag 1 BAG IV ONE (08:27)
[2023-04-23] MEDS: Sodium Chloride 0.9% 10 ML Syringe FLUSH SCH ×2 (09:32→21:16)
[2023-04-23] MEDS: Insulin Glarg,Human.Rec.Analog 100 Unit/ML 10 ML Vial SUBCUT SCH (09:55)
[2023-04-23] MEDS: Potassium Chloride 10 MEQ Tab.ER PO SCH (09:56)
[2023-04-23] MEDS ORDERED: Potassium Chloride 10 MEQ Tab.ER PO SCH (12:00)
[2023-04-23] MEDS: Nystatin Ointment 15 GM Tube TOP SCH ×2 (12:09→21:03)
[2023-04-23] MEDS: Melatonin 3 MG Tab PO PRN (20:56)
[2023-04-24] MEDS: Acetaminophen 325 MG Tab PO PRN ×4 (01:43→19:44)
[2023-04-24 05:59] LABS: BASOPHILS PERCENT AUTO 0.3 % (0.0-1.0); EOSINOPHILS PERCENT AUTO 3.1 % (1.0-3.0); HEMATOCRIT 34.9 % (37.0-47.0); HEMOGLOBIN 11.7 g/dL (12.0-16.0); MEAN CORPUSCULAR HEMOGLOBIN 30.9 pg (27.0-34.0); MEAN CORPUSCULAR HGB CONC 33.5 g/dL (33.0-35.0); MEAN CORPUSCULAR VOLUME 92.1 fL (80-100); MONOCYTES PERCENT AUTO 12.5 % (2-8); NEUTROPHILS PERCENT AUTO 59.1 % (42.2-75.2); PLATELET COUNT,PLT 304 10^3/uL (150-450); RED BLOOD CELL COUNT 3.79 10^6/uL (4.2-5.4); WHITE BLOOD CELL COUNT,WBC 6.9 10^3/uL (5.0-10.0)
[2023-04-24 06:10] LABS: ALBUMIN 2.6 g/dL (3.4-5.0); ANION GAP 12.9 mEq/L (7-13); BILIRUBIN TOTAL 0.5 mg/dL (0.2-1.0); BUN/CREATININE RATIO 6.1 (No establ ref range); CREATININE 1.15 mg/dL (0.55-1.02); EST CRCL DRUG DOSING (CG) 35.5 mL/min; POTASSIUM,K 2.9 mmol/L (3.5-5.1); PROTEIN TOTAL,TP 6.1 g/dL (6.4-8.2)
[2023-04-24] MEDS: Levothyroxine 112 MCG Tab PO SCH (06:10)
[2023-04-24 06:11] LABS: A/G RATIO 0.74
[2023-04-24] MEDS: Pantoprazole 40 MG Vial IVPUSH SCH (06:13)
[2023-04-24] MEDS: Potassium Chloride 10 MEQ Tab.ER PO SCH ×2 (08:12→17:20)
[2023-04-24] MEDS: Insulin Lispro 100 Units/ML 3 ML Vial SUBCUT SCH ×5 (08:14→20:04)
[2023-04-24] MEDS: Insulin Glarg,Human.Rec.Analog 100 Unit/ML 10 ML Vial SUBCUT SCH ×3 (08:14→10:03)
[2023-04-24] MEDS: Sodium Chloride 0.9% 10 ML Syringe FLUSH SCH ×2 (08:15→20:03)
[2023-04-24] MEDS: Nystatin Ointment 15 GM Tube TOP SCH ×2 (08:16→20:26)
[2023-04-24] MEDS ORDERED: Potassium Chloride 10 MEQ Tab.ER PO SCH (08:27)
[2023-04-24] MEDS: Loperamide 2 MG Cap PO PRN (19:44)
[2023-04-24] MEDS: Melatonin 3 MG Tab PO PRN (19:44)
[2023-04-24] MEDS ORDERED: Melatonin 3 MG Tab PO ONE (21:20)
[2023-04-25] MEDS: Acetaminophen 325 MG Tab PO PRN (01:52)
[2023-04-25] MEDS: Levothyroxine 112 MCG Tab PO SCH (05:15)
[2023-04-25 06:39] LABS: BASOPHILS PERCENT AUTO 0.2 % (0.0-1.0); EOSINOPHILS PERCENT AUTO 2.3 % (1.0-3.0); HEMOGLOBIN 11.6 g/dL (12.0-16.0); LYMPHOCYTES PERCENT AUTO 27.5 % (20.5-50.1); MEAN CORPUSCULAR HEMOGLOBIN 31.1 pg (27.0-34.0); MEAN CORPUSCULAR HGB CONC 33.1 g/dL (33.0-35.0); MEAN CORPUSCULAR VOLUME 93.8 fL (80-100); MONOCYTES PERCENT AUTO 9.9 % (2-8); NEUTROPHILS PERCENT AUTO 60.1 % (42.2-75.2); PLATELET COUNT,PLT 321 10^3/uL (150-450); RED BLOOD CELL COUNT 3.73 10^6/uL (4.2-5.4); WHITE BLOOD CELL COUNT,WBC 8.1 10^3/uL (5.0-10.0)
[2023-04-25 06:55] LABS: ALBUMIN 2.7 g/dL (3.4-5.0); ANION GAP 10.6 mEq/L (7-13); BILIRUBIN TOTAL 0.4 mg/dL (0.2-1.0); BUN/CREATININE RATIO 5.6 (No establ ref range); CREATININE 1.26 mg/dL (0.55-1.02); EST CRCL DRUG DOSING (CG) 32.4 mL/min; POTASSIUM,K 3.6 mmol/L (3.5-5.1); PROTEIN TOTAL,TP 6.2 g/dL (6.4-8.2)
[2023-04-25 06:57] LABS: A/G RATIO 0.77
[2023-04-25] MEDS ORDERED: Melatonin 3 MG Tab PO PRN (08:00)
[2023-04-25 08:20] VITALS: BP 124/63; PULSE 66
[2023-04-25] MEDS: Potassium Chloride 10 MEQ Tab.ER PO SCH ×2 (08:37)
[2023-04-25] MEDS: Nystatin Ointment 15 GM Tube TOP SCH (08:38)
[2023-04-25] MEDS: Sodium Chloride 0.9% 10 ML Syringe FLUSH SCH (08:39)
[2023-04-25] MEDS: Insulin Lispro 100 Units/ML 3 ML Vial SUBCUT SCH (08:42)
[2023-04-25] MEDS: Insulin Glarg,Human.Rec.Analog 100 Unit/ML 10 ML Vial SUBCUT SCH (08:42)
[2023-04-25] MEDS: Loperamide 2 MG Cap PO PRN (10:13)
== END 2023-04-25 10:34 | DRG 871 ==
LOC: DL.ED 08:48 → UNDOADMIN 12:13 → DL.MS 12:13
PROVIDERS: ADMIT Internal Medicine; ATTEND Internal Medicine
PROC: 3E03329 Introduction of Other Anti-infective into Peripheral Vein, Percutaneous Approach (ICD-10-PCS; principal; 2023-04-14)
PROC: 05HM33Z Insertion of Infusion Device into Right Internal Jugular Vein, Percutaneous Approach (ICD-10-PCS; 2023-04-14)
PROC: B543ZZA Ultrasonography of Right Jugular Veins, Guidance (ICD-10-PCS; 2023-04-14)
PROC: 4A033R1 Measurement of Arterial Saturation, Peripheral, Percutaneous Approach (ICD-10-PCS; 2023-04-14)
DX: A41.9 Sepsis, unspecified organism (principal); E11.10 Type 2 diabetes mellitus with ketoacidosis without coma; G93.41 Metabolic encephalopathy; R65.21 Severe sepsis with septic shock; N39.0 Urinary tract infection, site not specified; N17.9 Acute kidney failure, unspecified; T83.83XA Hemorrhage due to genitourinary prosthetic devices, implants and grafts, initial encounter; E78.5 Hyperlipidemia, unspecified; E86.0 Dehydration; Z20.822 Contact with and (suspected) exposure to COVID-19; Z66 Do not resuscitate; E87.6 Hypokalemia; E66.9 Obesity, unspecified; M81.0 Age-related osteoporosis without current pathological fracture; G89.29 Other chronic pain; G43.909 Migraine, unspecified, not intractable, without status migrainosus; K59.09 Other constipation; E03.9 Hypothyroidism, unspecified; M54.9 Dorsalgia, unspecified; F41.9 Anxiety disorder, unspecified; E83.52 Hypercalcemia; R31.9 Hematuria, unspecified; E83.42 Hypomagnesemia; E87.8 Other disorders of electrolyte and fluid balance, not elsewhere classified; D75.89 Other specified diseases of blood and blood-forming organs; F32.A Depression, unspecified; G47.00 Insomnia, unspecified; E11.40 Type 2 diabetes mellitus with diabetic neuropathy, unspecified; Z88.8 Allergy status to other drugs, medicaments and biological substances; Z91.041 Radiographic dye allergy status; Z79.890 Hormone replacement therapy; Z90.710 Acquired absence of both cervix and uterus; Z98.49 Cataract extraction status, unspecified eye; Z98.890 Other specified postprocedural states; Z90.10 Acquired absence of unspecified breast and nipple; Z90.721 Acquired absence of ovaries, unilateral; Z68.27 Body mass index [BMI] 27.0-27.9, adult; Z98.1 Arthrodesis status; Z79.4 Long term (current) use of insulin; Z79.899 Other long term (current) drug therapy
CPT/HCPCS: 0241U; 36415; 51702; 70450; 71045; 76705; 76770; 80048; 80053; 80202; 81001; 82009; 82140; 82533; 82550; 82803; 82947; 83605; 83735; 84132; 84145; 84443; 85025; 85610; 86140; 87040; 87086; 96361; 96374; 99233; 99239; 99291; 99291-25; 99292; A9270-GY; C9113; J0696; J1170; J1720; J1815-GY; J2060; J2543; J3370; J3475; J3480; J3490; J7030; J7040; J7042; J7050; J7060; J7120

== ENCOUNTER 2023-05-14 23:37 | Emergency (ER) | payer MEDICARE, MEDICAID ==
[2023-05-14] MEDS ORDERED: Sodium Chloride 0.9% 10 ML Syringe FLUSH PRN (23:57)
[2023-05-15 00:19] VITALS: BP 130/77; PULSE 107
== END 2023-05-15 00:29 ==
LOC: DL.ED 23:37
DX: E11.40 Type 2 diabetes mellitus with diabetic neuropathy, unspecified (principal); E03.9 Hypothyroidism, unspecified; E66.9 Obesity, unspecified; Z68.30 Body mass index [BMI] 30.0-30.9, adult; Z88.8 Allergy status to other drugs, medicaments and biological substances; Z79.4 Long term (current) use of insulin; Z79.899 Other long term (current) drug therapy
CPT/HCPCS: 82947; 99284; 99285

== ENCOUNTER 2023-06-15 16:47 | Inpatient (IN) | payer MEDICARE, MEDICAID ==
[2023-06-15] MEDS ORDERED: Sodium Chloride 0.9% 10 ML Syringe FLUSH PRN (16:53)
[2023-06-15] MEDS ORDERED: Sodium Chloride 0.9% 1,000 ML IV ONE (16:55)
[2023-06-15 17:05] LABS: BASOPHILS PERCENT AUTO 0.1 % (0.0-1.0); EOSINOPHILS PERCENT AUTO 0.1 % (1.0-3.0); HEMOGLOBIN 12.5 g/dL (12.0-16.0); MEAN CORPUSCULAR HEMOGLOBIN 32.8 pg (27.0-34.0); MEAN CORPUSCULAR HGB CONC 30.5 g/dL (33.0-35.0); MEAN CORPUSCULAR VOLUME 107.6 fL (80-100); MONOCYTES PERCENT AUTO 6.5 % (2-8); NEUTROPHILS PERCENT AUTO 85.3 % (42.2-75.2); PLATELET COUNT,PLT 453 10^3/uL (150-450); RED BLOOD CELL COUNT 3.81 10^6/uL (4.2-5.4); WHITE BLOOD CELL COUNT,WBC 12.6 10^3/uL (5.0-10.0)
[2023-06-15] MEDS ORDERED: Glucagon,Human Recombinant 1 MG Vial IM PRN (17:09)
[2023-06-15] MEDS ORDERED: 50% Dextrose in Water 50 ML Syringe IVPUSH PRN (17:09)
[2023-06-15 17:21] LABS: O2 DELIVERY DEVICE NON REBR MASK
[2023-06-15 17:22] LABS: BASE EXCESS ARTERIAL -19 mmol/L ((-2)-(+3)); BICARBONATE,ARTERIAL 8.1 mmol/L (22-26); O2 SATURATION ARTERIAL 94 % (95-100); PCO2 ARTERIAL 22 mmHg (35-45); PO2 ARTERIAL 81 mmHg (70-100)
[2023-06-15 17:24] LABS: PH,ARTERIAL 7.19 (7.35-7.45)
[2023-06-15 17:27] LABS: KETONES,BLOOD MODERATE-40 mg/dL
[2023-06-15 17:33] LABS: A/G RATIO 0.9; ALANINE AMINOTRANSFERASE,ALT 30 U/L (14-59); ALBUMIN 3.7 g/dL (3.4-5.0); ALKALINE PHOSPHATASE 208 U/L (46-116); ANION GAP 38.7 mEq/L (7-13); ASPARTATE AMNIOTRANSFERASE,AST 24 U/L (15-37); BILIRUBIN TOTAL 0.8 mg/dL (0.2-1.0); BLOOD UREA NITROGEN,BUN 30 mg/dL (7-18); BUN/CREATININE RATIO 14.3 (No establ ref range); C-REACTIVE PROTEIN 1.33 ng/dL (<=0.50); CALCIUM 9.4 mg/dL (8.5-10.1); CARBON DIOXIDE,CO2 12 mmol/L (21-32); CHLORIDE,CL 84 mmol/L (98-107); MAGNESIUM 2.2 mg/dL (1.8-2.4); PROTEIN TOTAL,TP 7.9 g/dL (6.4-8.2); SODIUM,NA 127 mmol/L (136-145)
[2023-06-15 17:47] LABS: ESTIMATED GFR 24 mL/min (>=60); LACTIC ACID 6.5 mmol/L (0.4-2.0); POTASSIUM,K 7.7 mmol/L (3.5-5.1)
[2023-06-15] MEDS ORDERED: Albuterol 0.083% 2.5 MG/3 ML Neb Soln NEB ONE (17:50)
[2023-06-15] MEDS ORDERED: Sodium Bicarbonate 8.4% 50 MEQ/50 ML Syringe IVPUSH ONE (17:50)
[2023-06-15] MEDS ORDERED: Calcium Gluconate 10% 1 GM/10 ML SDV IVPUSH ONE ×2 (17:52→20:13)
[2023-06-15 17:56] LABS: GLUCOSE RANDOM 1075 mg/dL (70-99)
[2023-06-15] MEDS ORDERED: Magnesium Hydroxide 400 MG/5 ML Susp 30 ML Cup PO PRN (20:04)
[2023-06-15] MEDS ORDERED: Naloxone 2 MG/2 ML Syringe IVPUSH PRN (20:04)
[2023-06-15] MEDS ORDERED: Polyethylene Glycol 3350 Powder 17 GM Packet PO PRN (20:04)
[2023-06-15] MEDS ORDERED: HYDROmorphone 0.5 MG/0.5 ML Syringe IVPUSH PRN (20:04)
[2023-06-15] MEDS ORDERED: Ondansetron 4 MG/2 ML SDV IVPUSH PRN (20:04)
[2023-06-15] MEDS ORDERED: Acetaminophen 325 MG Tab PO PRN (20:04)
[2023-06-15] MEDS ORDERED: Albuterol/Ipratropium 3.0-0.5 MG/3 ML Neb Soln NEB PRN (20:04)
[2023-06-15] MEDS ORDERED: Sennosides/Docusate Sodium 50-8.6 MG Tab PO PRN (20:04)
[2023-06-15] MEDS ORDERED: Sodium Polystyrene Sulfonate 15 GM/60 ML Susp 60 ML Bot PO ONE (20:14)
[2023-06-15] MEDS ORDERED: Magnesium Sulfate/Water 2 GM in Premix Bag 1 BAG IV ONE (20:20)
[2023-06-15] MEDS ORDERED: Magnesium Sulfate/Water 50 ML ONE (20:22)
[2023-06-15 20:49] LABS: HEMOGLOBIN A1C 10.3 % (<5.7)
[2023-06-15 21:01] LABS: MAGNESIUM 1.8 mg/dL (1.8-2.4); PHOSPHORUS 4.6 mg/dL (2.6-4.7)
[2023-06-15 21:03] LABS: BLOOD UREA NITROGEN,BUN 30 mg/dL (7-18); CALCIUM 8.9 mg/dL (8.5-10.1); CARBON DIOXIDE,CO2 17 mmol/L (21-32); CHLORIDE,CL 98 mmol/L (98-107); CREATININE 1.86 mg/dL (0.55-1.02); SODIUM,NA 140 mmol/L (136-145)
[2023-06-15 21:14] LABS: ESTIMATED GFR 28 mL/min (>=60); GLUCOSE RANDOM 552 mg/dL (70-99)
[2023-06-15] MEDS: Lactated Ringers 1,000 ML IV SCH (21:26)
[2023-06-15] MEDS: Pantoprazole 40 MG Vial IVPUSH SCH (21:26)
[2023-06-15] MEDS: Insulin Glarg,Human.Rec.Analog 100 Unit/ML 10 ML Vial SUBCUT SCH (21:27)
[2023-06-15] MEDS: LORazepam 2 MG/ML SDV IVPUSH PRN (22:30)
[2023-06-15 22:54] LABS: APPEARANCE,URINE CLEAR (CLEAR); BILIRUBIN,URINE SMALL (NEGATIVE); COLOR,URINE YELLOW (YELLOW); GLUCOSE,URINE 500 (NEGATIVE); KETONES,URINE >=160 (NEGATIVE); LEUKOCYTE ESTERASE,URINE NEGATIVE (NEGATIVE); NITRITE,URINE NEGATIVE (NEGATIVE); OCCULT BLOOD,URINE TRACE-INTACT (NEGATIVE); PROTEIN,URINE 30 (NEGATIVE); UROBILINOGEN,URINE 0.2 mg/dL (0.2-1.0)
[2023-06-15 23:04] LABS: BACTERIA,URINE FEW /HPF (0-FEW/HPF); EPITHELIAL CELLS,URINE FEW /HPF (NOT SEEN); MUCUS,URINE OCCASIONAL /LPF (NOT SEEN); RBC,URINE 0-5 /HPF (0-5); WBC,URINE 0-5 /HPF (0-5/HPF)
[2023-06-15] MEDS ORDERED: Flumazenil 0.1 MG/ML 5 ML MDV IVPUSH PRN (23:09)
[2023-06-15] MEDS ORDERED: LORazepam 2 MG/ML SDV ONE (23:15)
[2023-06-16 00:36] LABS: ANION GAP 17.4 mEq/L (7-13); CALCIUM 9.1 mg/dL (8.5-10.1); CREATININE 1.51 mg/dL (0.55-1.02); EST CRCL DRUG DOSING (CG) 28.23 mL/min; POTASSIUM,K 3.4 mmol/L (3.5-5.1)
[2023-06-16] MEDS ORDERED: Potassium Chloride 20 MEQ in Premix Bag 1 BAG IV ONE ×3 (00:42→21:00)
[2023-06-16] MEDS: LORazepam 2 MG/ML SDV IVPUSH PRN (02:38)
[2023-06-16] MEDS ORDERED: Dextrose 5%-0.9% NaCl 1,000 ML IV SCH (02:45)
[2023-06-16 06:41] LABS: BASOPHILS PERCENT AUTO 0.1 % (0.0-1.0); EOSINOPHILS PERCENT AUTO 0.1 % (1.0-3.0); HEMATOCRIT 29.7 % (37.0-47.0); HEMOGLOBIN 9.5 g/dL (12.0-16.0); LYMPHOCYTES PERCENT AUTO 21.7 % (20.5-50.1); MEAN CORPUSCULAR HEMOGLOBIN 31.4 pg (27.0-34.0); MONOCYTES PERCENT AUTO 12.4 % (2-8); NEUTROPHILS PERCENT AUTO 65.7 % (42.2-75.2); PLATELET COUNT,PLT 368 10^3/uL (150-450); RED BLOOD CELL COUNT 3.03 10^6/uL (4.2-5.4); WHITE BLOOD CELL COUNT,WBC 14.1 10^3/uL (5.0-10.0)
[2023-06-16 07:11] LABS: ANION GAP 14.1 mEq/L (7-13); CALCIUM 8.5 mg/dL (8.5-10.1); CREATININE 1.27 mg/dL (0.55-1.02); EST CRCL DRUG DOSING (CG) 33.56 mL/min; POTASSIUM,K 3.1 mmol/L (3.5-5.1)
[2023-06-16 07:15] LABS: MAGNESIUM 2.2 mg/dL (1.8-2.4); PHOSPHORUS 3.8 mg/dL (2.6-4.7)
[2023-06-16 08:33] LABS: ANION GAP 10.9 mEq/L (7-13); CALCIUM 8.1 mg/dL (8.5-10.1); CREATININE 1.11 mg/dL (0.55-1.02); EST CRCL DRUG DOSING (CG) 38.4 mL/min; POTASSIUM,K 2.9 mmol/L (3.5-5.1)
[2023-06-16] MEDS: Pantoprazole 40 MG Vial IVPUSH SCH ×2 (09:13→22:43)
[2023-06-16] MEDS: Insulin Glarg,Human.Rec.Analog 100 Unit/ML 10 ML Vial SUBCUT SCH ×2 (09:14→22:43)
[2023-06-16] MEDS ORDERED: Insulin Lispro 100 Units/ML 3 ML Vial SUBCUT SCH ×2 (12:00→12:45)
[2023-06-16 12:30] LABS: ANION GAP 8.8 mEq/L (7-13); CALCIUM 8.2 mg/dL (8.5-10.1); CREATININE 0.93 mg/dL (0.55-1.02); EST CRCL DRUG DOSING (CG) 45.83 mL/min; POTASSIUM,K 2.8 mmol/L (3.5-5.1)
[2023-06-16] MEDS ORDERED: Potassium Chloride 10 MEQ Tab.ER PO ONE (13:21)
[2023-06-16 16:34] LABS: CREATININE 0.97 mg/dL (0.55-1.02); EST CRCL DRUG DOSING (CG) 43.94 mL/min
[2023-06-16] MEDS: Insulin Lispro 100 Units/ML 3 ML Vial SUBCUT SCH (18:16)
[2023-06-17] MEDS: Lactated Ringers 1,000 ML IV SCH (01:56)
[2023-06-17 06:30] LABS: BASOPHILS PERCENT AUTO 0.2 % (0.0-1.0); EOSINOPHILS PERCENT AUTO 1.7 % (1.0-3.0); HEMATOCRIT 30.5 % (37.0-47.0); HEMOGLOBIN 9.7 g/dL (12.0-16.0); LYMPHOCYTES PERCENT AUTO 23.8 % (20.5-50.1); MEAN CORPUSCULAR HEMOGLOBIN 31.7 pg (27.0-34.0); MEAN CORPUSCULAR HGB CONC 31.8 g/dL (33.0-35.0); MEAN CORPUSCULAR VOLUME 99.7 fL (80-100); MONOCYTES PERCENT AUTO 8.3 % (2-8); PLATELET COUNT,PLT 287 10^3/uL (150-450); RED BLOOD CELL COUNT 3.06 10^6/uL (4.2-5.4); WHITE BLOOD CELL COUNT,WBC 9.6 10^3/uL (5.0-10.0)
[2023-06-17 06:57] LABS: ALBUMIN 2.4 g/dL (3.4-5.0); ANION GAP 7.9 mEq/L (7-13); BILIRUBIN TOTAL 0.3 mg/dL (0.2-1.0); BUN/CREATININE RATIO 9.1 (No establ ref range); CALCIUM 8.4 mg/dL (8.5-10.1); CREATININE 0.66 mg/dL (0.55-1.02); EST CRCL DRUG DOSING (CG) 64.58 mL/min; POTASSIUM,K 2.9 mmol/L (3.5-5.1); PROTEIN TOTAL,TP 5.4 g/dL (6.4-8.2)
[2023-06-17 06:58] LABS: A/G RATIO 0.8
[2023-06-17] MEDS: Insulin Lispro 100 Units/ML 3 ML Vial SUBCUT SCH (07:59)
[2023-06-17] MEDS ORDERED: Potassium Chloride 20 MEQ in Premix Bag 1 BAG IV ONE ×5 (08:15→17:00)
[2023-06-17] MEDS: Insulin Glarg,Human.Rec.Analog 100 Unit/ML 10 ML Vial SUBCUT SCH (09:18)
[2023-06-17] MEDS: Pantoprazole 40 MG Vial IVPUSH SCH (09:21)
[2023-06-17] MEDS ORDERED: Potassium Chloride 10 MEQ Tab.ER PO ONE (09:57)
[2023-06-17 11:51] VITALS: BP 130/58; PULSE 102
== END 2023-06-17 12:11 | disposition other institution (70) | DRG 637 ==
LOC: DL.ED 16:47 → DL.MS 18:34
PROVIDERS: ADMIT Internal Medicine; ATTEND Internal Medicine
DX: E11.10 Type 2 diabetes mellitus with ketoacidosis without coma (principal); G93.41 Metabolic encephalopathy; I49.01 Ventricular fibrillation; N17.9 Acute kidney failure, unspecified; E78.5 Hyperlipidemia, unspecified; E03.9 Hypothyroidism, unspecified; E66.9 Obesity, unspecified; M81.0 Age-related osteoporosis without current pathological fracture; G89.29 Other chronic pain; M54.9 Dorsalgia, unspecified; F41.9 Anxiety disorder, unspecified; F32.A Depression, unspecified; G47.00 Insomnia, unspecified; M17.0 Bilateral primary osteoarthritis of knee; E87.6 Hypokalemia; E87.5 Hyperkalemia; D75.839 Thrombocytosis, unspecified; R79.89 Other specified abnormal findings of blood chemistry; E87.8 Other disorders of electrolyte and fluid balance, not elsewhere classified; Z66 Do not resuscitate; G30.9 Alzheimer's disease, unspecified; F02.80 Dementia in other diseases classified elsewhere, unspecified severity, without behavioral disturbance, psychotic disturbance, mood disturbance, and anxiety; M19.90 Unspecified osteoarthritis, unspecified site; G43.909 Migraine, unspecified, not intractable, without status migrainosus; E11.40 Type 2 diabetes mellitus with diabetic neuropathy, unspecified; F20.9 Schizophrenia, unspecified; Z98.49 Cataract extraction status, unspecified eye; Z90.710 Acquired absence of both cervix and uterus; Z79.899 Other long term (current) drug therapy; Z98.1 Arthrodesis status; Z79.4 Long term (current) use of insulin; Z88.8 Allergy status to other drugs, medicaments and biological substances; Z91.041 Radiographic dye allergy status; Z98.890 Other specified postprocedural states; Z90.721 Acquired absence of ovaries, unilateral; Z90.10 Acquired absence of unspecified breast and nipple; Z68.24 Body mass index [BMI] 24.0-24.9, adult
CPT/HCPCS: 36415; 36600; 51702; 70450; 80048; 80053; 81001; 82009; 82550; 82803; 82947; 83036; 83605; 83735; 84100; 85025; 86140; 96361; 96374; 96375; 99238; 99285; 99285-25; 99291; A9270-GY; C9113; J0612; J1815-GY; J2060; J3475; J3480; J3490; J7030; J7042; J7120; J7613-GY

== ENCOUNTER 2023-06-25 16:18 | Observation (INO) | payer MEDICARE, MEDICAID ==
[2023-06-25 16:39] LABS: BASOPHILS PERCENT AUTO 0.1 % (0.0-1.0); EOSINOPHILS PERCENT AUTO 1.6 % (1.0-3.0); HEMATOCRIT 36.6 % (37.0-47.0); HEMOGLOBIN 11.4 g/dL (12.0-16.0); LYMPHOCYTES PERCENT AUTO 39.1 % (20.5-50.1); MEAN CORPUSCULAR HEMOGLOBIN 31.7 pg (27.0-34.0); MEAN CORPUSCULAR HGB CONC 31.1 g/dL (33.0-35.0); MEAN CORPUSCULAR VOLUME 101.7 fL (80-100); MONOCYTES PERCENT AUTO 10.3 % (2-8); NEUTROPHILS PERCENT AUTO 48.9 % (42.2-75.2); PLATELET COUNT,PLT 333 10^3/uL (150-450); WHITE BLOOD CELL COUNT,WBC 6.7 10^3/uL (5.0-10.0)
[2023-06-25] MEDS ORDERED: Sodium Chloride 0.9% 1,000 ML IV ONE (16:43)
[2023-06-25] MEDS ORDERED: Ondansetron 4 MG/2 ML SDV IVPUSH ONE (16:43)
[2023-06-25 16:48] LABS: APPEARANCE,URINE CLEAR (CLEAR); BILIRUBIN,URINE NEGATIVE (NEGATIVE); GLUCOSE,URINE 500 (NEGATIVE); KETONES,URINE 40 (NEGATIVE); LEUKOCYTE ESTERASE,URINE NEGATIVE (NEGATIVE); NITRITE,URINE NEGATIVE (NEGATIVE); OCCULT BLOOD,URINE NEGATIVE (NEGATIVE); PROTEIN,URINE NEGATIVE (NEGATIVE); UROBILINOGEN,URINE 0.2 mg/dL (0.2-1.0)
[2023-06-25 16:49] LABS: COLOR,URINE LIGHT YELLOW (YELLOW)
[2023-06-25] MEDS ORDERED: Glucagon,Human Recombinant 1 MG Vial IM PRN ×2 (16:54→21:13)
[2023-06-25] MEDS ORDERED: Insulin Regular, Human 100 Units/ML 3 ML Vial IV ONE (16:54)
[2023-06-25] MEDS ORDERED: 50% Dextrose in Water 50 ML Syringe IVPUSH PRN ×2 (16:54→21:13)
[2023-06-25 17:00] LABS: ALANINE AMINOTRANSFERASE,ALT 21 U/L (14-59); ALBUMIN 3.2 g/dL (3.4-5.0); ALKALINE PHOSPHATASE 175 U/L (46-116); ANION GAP 15.7 mEq/L (7-13); ASPARTATE AMNIOTRANSFERASE,AST 23 U/L (15-37); BILIRUBIN TOTAL 0.6 mg/dL (0.2-1.0); BLOOD UREA NITROGEN,BUN 19 mg/dL (7-18); BUN/CREATININE RATIO 19.2 (No establ ref range); CALCIUM 8.9 mg/dL (8.5-10.1); CARBON DIOXIDE,CO2 22 mmol/L (21-32); CHLORIDE,CL 94 mmol/L (98-107); CREATININE 0.99 mg/dL (0.55-1.02); POTASSIUM,K 4.7 mmol/L (3.5-5.1); PROTEIN TOTAL,TP 7.1 g/dL (6.4-8.2); SODIUM,NA 127 mmol/L (136-145)
[2023-06-25 17:19] LABS: A/G RATIO 0.82; ESTIMATED GFR 60 mL/min (>=60); GLUCOSE RANDOM 561 mg/dL (70-99)
[2023-06-25 17:20] LABS: KETONES,BLOOD SMALL-20 mg/dL
[2023-06-25] MEDS ORDERED: Magnesium Hydroxide 400 MG/5 ML Susp 30 ML Cup PO PRN (20:21)
[2023-06-25] MEDS ORDERED: Acetaminophen 325 MG Tab PO PRN (20:21)
[2023-06-25] MEDS ORDERED: Ondansetron 4 MG/2 ML SDV IVPUSH PRN (20:21)
[2023-06-25] MEDS ORDERED: Sennosides/Docusate Sodium 50-8.6 MG Tab PO PRN (20:21)
[2023-06-25] MEDS ORDERED: Naloxone 2 MG/2 ML Syringe IVPUSH PRN (20:21)
[2023-06-25] MEDS ORDERED: Polyethylene Glycol 3350 Powder 17 GM Packet PO PRN (20:21)
[2023-06-25] MEDS ORDERED: HYDROmorphone 0.5 MG/0.5 ML Syringe IVPUSH PRN (20:21)
[2023-06-25] MEDS ORDERED: Albuterol/Ipratropium 3.0-0.5 MG/3 ML Neb Soln NEB PRN (20:21)
[2023-06-25] MEDS ORDERED: Metoprolol Tartrate 5 MG/5 ML SDV IVPUSH PRN (20:25)
[2023-06-25] MEDS ORDERED: Lactated Ringers 1,000 ML IV ONE (20:25)
[2023-06-25] MEDS ORDERED: hydrALAZINE 20 MG/ML SDV IVPUSH PRN (20:25)
[2023-06-25] MEDS ORDERED: traMADol 50 MG Tab PO PRN (20:48)
[2023-06-25 20:57] LABS: ANION GAP 13.6 mEq/L (7-13); CALCIUM 8.7 mg/dL (8.5-10.1); CREATININE 0.77 mg/dL (0.55-1.02); EST CRCL DRUG DOSING (CG) 46.04 mL/min; POTASSIUM,K 4.6 mmol/L (3.5-5.1)
[2023-06-25] MEDS ORDERED: Insulin Glarg,Human.Rec.Analog 100 Unit/ML 10 ML Vial SUBCUT ONE (21:22)
[2023-06-25] MEDS: Donepezil 10 MG Tab PO SCH (22:21)
[2023-06-26 06:45] LABS: BASOPHILS PERCENT AUTO 0.3 % (0.0-1.0); EOSINOPHILS PERCENT AUTO 3.1 % (1.0-3.0); HEMOGLOBIN 10.7 g/dL (12.0-16.0); LYMPHOCYTES PERCENT AUTO 43.4 % (20.5-50.1); MEAN CORPUSCULAR HEMOGLOBIN 31.5 pg (27.0-34.0); MEAN CORPUSCULAR HGB CONC 31.5 g/dL (33.0-35.0); MONOCYTES PERCENT AUTO 12.4 % (2-8); NEUTROPHILS PERCENT AUTO 40.8 % (42.2-75.2); PLATELET COUNT,PLT 315 10^3/uL (150-450); WHITE BLOOD CELL COUNT,WBC 6.7 10^3/uL (5.0-10.0)
[2023-06-26 07:15] LABS: ALBUMIN 2.9 g/dL (3.4-5.0); ANION GAP 10.9 mEq/L (7-13); BILIRUBIN TOTAL 0.5 mg/dL (0.2-1.0); BUN/CREATININE RATIO 10.4 (No establ ref range); CREATININE 0.77 mg/dL (0.55-1.02); EST CRCL DRUG DOSING (CG) 46.04 mL/min; MAGNESIUM 1.8 mg/dL (1.8-2.4); POTASSIUM,K 3.9 mmol/L (3.5-5.1); PROTEIN TOTAL,TP 6.6 g/dL (6.4-8.2)
[2023-06-26 07:34] LABS: A/G RATIO 0.78
[2023-06-26] MEDS: Insulin Lispro 100 Units/ML 3 ML Vial SUBCUT SCH ×3 (08:02→16:58)
[2023-06-26] MEDS: Insulin Glarg,Human.Rec.Analog 100 Unit/ML 10 ML Vial SUBCUT SCH ×2 (08:52→20:17)
[2023-06-26] MEDS: Donepezil 10 MG Tab PO SCH (20:15)
[2023-06-26] MEDS ORDERED: Melatonin 3 MG Tab PO SCH (21:00)
[2023-06-27 06:24] LABS: ALBUMIN 2.9 g/dL (3.4-5.0); ANION GAP 9.8 mEq/L (7-13); BASOPHILS PERCENT AUTO 0.3 % (0.0-1.0); BILIRUBIN TOTAL 0.3 mg/dL (0.2-1.0); BUN/CREATININE RATIO 13.7 (No establ ref range); CALCIUM 8.6 mg/dL (8.5-10.1); CREATININE 0.73 mg/dL (0.55-1.02); EOSINOPHILS PERCENT AUTO 2.6 % (1.0-3.0); EST CRCL DRUG DOSING (CG) 48.56 mL/min; HEMATOCRIT 34.6 % (37.0-47.0); HEMOGLOBIN 11.1 g/dL (12.0-16.0); LYMPHOCYTES PERCENT AUTO 40.3 % (20.5-50.1); MAGNESIUM 1.7 mg/dL (1.8-2.4); MEAN CORPUSCULAR HGB CONC 32.1 g/dL (33.0-35.0); MEAN CORPUSCULAR VOLUME 99.7 fL (80-100); MONOCYTES PERCENT AUTO 10.2 % (2-8); NEUTROPHILS PERCENT AUTO 46.6 % (42.2-75.2); PLATELET COUNT,PLT 348 10^3/uL (150-450); POTASSIUM,K 3.8 mmol/L (3.5-5.1); PROTEIN TOTAL,TP 6.6 g/dL (6.4-8.2); RED BLOOD CELL COUNT 3.47 10^6/uL (4.2-5.4); WHITE BLOOD CELL COUNT,WBC 7.1 10^3/uL (5.0-10.0)
[2023-06-27 06:29] LABS: A/G RATIO 0.78
[2023-06-27] MEDS: Insulin Glarg,Human.Rec.Analog 100 Unit/ML 10 ML Vial SUBCUT SCH (08:13)
[2023-06-27] MEDS: Insulin Lispro 100 Units/ML 3 ML Vial SUBCUT SCH (08:13)
[2023-06-27] MEDS ORDERED: Magnesium Sulfate/Water 2 GM in Premix Bag 1 BAG IV ONE (08:19)
[2023-06-27 10:52] VITALS: BP 106/55; PULSE 88
== END 2023-06-27 11:11 | disposition other institution (70) ==
LOC: DL.ED 16:18 → DL.MS 18:01 → DL.ED 18:41
PROVIDERS: ADMIT Internal Medicine; ATTEND Internal Medicine
DX: E10.10 Type 1 diabetes mellitus with ketoacidosis without coma (principal); E10.40 Type 1 diabetes mellitus with diabetic neuropathy, unspecified; E10.65 Type 1 diabetes mellitus with hyperglycemia; G30.9 Alzheimer's disease, unspecified; F02.80 Dementia in other diseases classified elsewhere, unspecified severity, without behavioral disturbance, psychotic disturbance, mood disturbance, and anxiety; E78.5 Hyperlipidemia, unspecified; E03.9 Hypothyroidism, unspecified; E66.9 Obesity, unspecified; D53.9 Nutritional anemia, unspecified; Z79.899 Other long term (current) drug therapy
CPT/HCPCS: 36415; 71045; 80048; 80053; 81003; 82009; 82800; 82947; 83735; 85025; 99222; 99232; 99238; A9270-GY; J1815-GY; J2405; J3475; J7030; J7120

== ENCOUNTER 2023-07-17 14:10 | Emergency (ER) | payer MEDICARE, MEDICAID ==
[2023-07-17] MEDS ORDERED: Sodium Chloride 0.9% 500 ML IV STA (14:40)
[2023-07-17 14:59] LABS: O2 DELIVERY DEVICE ROOM AIR
[2023-07-17 15:01] LABS: BASOPHILS PERCENT AUTO 0.1 % (0.0-1.0); EOSINOPHILS PERCENT AUTO 2.3 % (1.0-3.0); HEMATOCRIT 37.6 % (37.0-47.0); HEMOGLOBIN 11.7 g/dL (12.0-16.0); MEAN CORPUSCULAR HEMOGLOBIN 32.1 pg (27.0-34.0); MEAN CORPUSCULAR HGB CONC 31.1 g/dL (33.0-35.0); MEAN CORPUSCULAR VOLUME 103.3 fL (80-100); MONOCYTES PERCENT AUTO 8.9 % (2-8); NEUTROPHILS PERCENT AUTO 50.7 % (42.2-75.2); PLATELET COUNT,PLT 295 10^3/uL (150-450); RED BLOOD CELL COUNT 3.64 10^6/uL (4.2-5.4); WHITE BLOOD CELL COUNT,WBC 6.9 10^3/uL (5.0-10.0)
[2023-07-17 15:02] LABS: BASE EXCESS VENOUS -0.9 mmol/l ((-2)-(+3)); BICARBONATE,VENOUS 24 mmol/l (19-25); O2 SATURATION VENOUS 72.4 % (60-80); PCO2 VENOUS 45 mmHg (41-51); PH,VENOUS 7.35 (7.31-7.41); PO2 VENOUS 43 mmHg (35-42)
[2023-07-17 15:11] VITALS: BP 117/62; PULSE 89
[2023-07-17 15:13] LABS: APPEARANCE,URINE CLEAR (CLEAR); BILIRUBIN,URINE NEGATIVE (NEGATIVE); GLUCOSE,URINE 500 (NEGATIVE); KETONES,URINE NEGATIVE (NEGATIVE); LEUKOCYTE ESTERASE,URINE NEGATIVE (NEGATIVE); NITRITE,URINE POSITIVE (NEGATIVE); OCCULT BLOOD,URINE NEGATIVE (NEGATIVE); PROTEIN,URINE NEGATIVE (NEGATIVE); UROBILINOGEN,URINE 0.2 mg/dL (0.2-1.0)
[2023-07-17 15:14] LABS: COLOR,URINE LIGHT YELLOW (YELLOW)
[2023-07-17 15:21] LABS: AMORPHOUS SEDIMENT,URINE FEW /HPF (NOT SEEN); BACTERIA,URINE MANY /HPF (0-FEW/HPF); EPITHELIAL CELLS,URINE FEW /HPF (NOT SEEN); MUCUS,URINE RARE /LPF (NOT SEEN); RBC,URINE 0-5 /HPF (0-5)
[2023-07-17 15:22] LABS: ALBUMIN 3.3 g/dL (3.4-5.0); ANION GAP 12.6 mEq/L (7-13); BILIRUBIN TOTAL 0.5 mg/dL (0.2-1.0); BUN/CREATININE RATIO 21.1 (No establ ref range); CALCIUM 8.9 mg/dL (8.5-10.1); CREATININE 0.9 mg/dL (0.55-1.02); EST CRCL DRUG DOSING (CG) 43.37 mL/min; MAGNESIUM 2.1 mg/dL (1.8-2.4); POTASSIUM,K 4.6 mmol/L (3.5-5.1); PROTEIN TOTAL,TP 7.3 g/dL (6.4-8.2)
[2023-07-17 15:23] LABS: A/G RATIO 0.83
[2023-07-17] MEDS ORDERED: cefTRIAXone 1 GM Vial IVPUSH ONE (16:16)
[2023-07-17] MEDS ORDERED: Take Home: Nitrofurantoin Monohydrate/Macrocrystalline 100 MG, 6 Cap Pack PO ONE (16:56)
== END 2023-07-17 17:00 | disposition home or self-care (01) ==
LOC: DL.ED 14:10
DX: E10.65 Type 1 diabetes mellitus with hyperglycemia (principal); N30.00 Acute cystitis without hematuria; E03.9 Hypothyroidism, unspecified; Z79.4 Long term (current) use of insulin; Z88.1 Allergy status to other antibiotic agents; Z88.8 Allergy status to other drugs, medicaments and biological substances; Z79.899 Other long term (current) drug therapy
CPT/HCPCS: 36415; 80053; 81001; 82803; 82947; 83735; 85025; 87086; 87088; 87186; 96361; 96374; 99284; 99284-25; A9270-GY; J0696; J7040

== ENCOUNTER 2023-08-07 16:04 | Emergency (ER) | payer MEDICARE, MEDICAID ==
[2023-08-07 18:08] LABS: O2 DELIVERY DEVICE ROOM AIR
[2023-08-07 18:10] LABS: BASOPHILS PERCENT AUTO 0.3 % (0.0-1.0); EOSINOPHILS PERCENT AUTO 1.8 % (1.0-3.0); HEMATOCRIT 39.4 % (37.0-47.0); HEMOGLOBIN 12.9 g/dL (12.0-16.0); LYMPHOCYTES PERCENT AUTO 32.7 % (20.5-50.1); MEAN CORPUSCULAR HEMOGLOBIN 32.9 pg (27.0-34.0); MEAN CORPUSCULAR HGB CONC 32.7 g/dL (33.0-35.0); MEAN CORPUSCULAR VOLUME 100.5 fL (80-100); MONOCYTES PERCENT AUTO 7.8 % (2-8); NEUTROPHILS PERCENT AUTO 57.4 % (42.2-75.2); PLATELET COUNT,PLT 266 10^3/uL (150-450); RED BLOOD CELL COUNT 3.92 10^6/uL (4.2-5.4); WHITE BLOOD CELL COUNT,WBC 7.9 10^3/uL (5.0-10.0)
[2023-08-07 18:14] LABS: BASE EXCESS VENOUS -3.9 mmol/l ((-2)-(+3)); BICARBONATE,VENOUS 23 mmol/l (19-25); O2 SATURATION VENOUS 45.1 % (60-80); PCO2 VENOUS 49 mmHg (41-51); PH,VENOUS 7.29 (7.31-7.41); PO2 VENOUS 38 mmHg (35-42)
[2023-08-07 18:30] LABS: KETONES,BLOOD SMALL-20 mg/dL
[2023-08-07 18:31] LABS: A/G RATIO 0.9; ALANINE AMINOTRANSFERASE,ALT 30 U/L (14-59); ALBUMIN 3.8 g/dL (3.4-5.0); ALKALINE PHOSPHATASE 217 U/L (46-116); ANION GAP 18.4 mEq/L (7-13); ASPARTATE AMNIOTRANSFERASE,AST 17 U/L (15-37); BILIRUBIN TOTAL 0.6 mg/dL (0.2-1.0); BLOOD UREA NITROGEN,BUN 20 mg/dL (7-18); BUN/CREATININE RATIO 22.2 (No establ ref range); CALCIUM 9.6 mg/dL (8.5-10.1); CARBON DIOXIDE,CO2 22 mmol/L (21-32); CHLORIDE,CL 98 mmol/L (98-107); LIPASE 17 U/L (16-77); POTASSIUM,K 4.4 mmol/L (3.5-5.1); SODIUM,NA 134 mmol/L (136-145)
[2023-08-07 18:33] LABS: ESTIMATED GFR 67 mL/min (>=60); GLUCOSE RANDOM 514 mg/dL (70-99)
[2023-08-07 18:39] LABS: APPEARANCE,URINE SLIGHTLY CLOUDY (CLEAR); BILIRUBIN,URINE NEGATIVE (NEGATIVE); COLOR,URINE YELLOW (YELLOW); GLUCOSE,URINE 500 (NEGATIVE); KETONES,URINE 15 (NEGATIVE); LEUKOCYTE ESTERASE,URINE TRACE (NEGATIVE); NITRITE,URINE POSITIVE (NEGATIVE); OCCULT BLOOD,URINE TRACE-INTACT (NEGATIVE); PH,URINE 5.5 (5.0-9.0); PROTEIN,URINE NEGATIVE (NEGATIVE); UROBILINOGEN,URINE 0.2 mg/dL (0.2-1.0)
[2023-08-07 18:46] LABS: BACTERIA,URINE MODERATE /HPF (0-FEW/HPF); EPITHELIAL CELLS,URINE FEW /HPF (NOT SEEN); RBC,URINE 0-5 /HPF (0-5)
[2023-08-07 18:47] LABS: WBC,URINE 40-50 /HPF (0-5/HPF)
[2023-08-07 19:06] VITALS: BP 135/76; PULSE 98
[2023-08-07] MEDS ORDERED: Sodium Chloride 0.9% 500 ML IV STA (22:56)
[2023-08-07] MEDS ORDERED: Glucagon,Human Recombinant 1 MG Vial IM PRN (22:57)
[2023-08-07] MEDS ORDERED: 50% Dextrose in Water 50 ML Syringe IVPUSH PRN (22:57)
[2023-08-07] MEDS ORDERED: Insulin Lispro 100 Units/ML 3 ML Vial SUBCUT ONE (22:57)
[2023-08-07] MEDS ORDERED: cefTRIAXone 1 GM Vial IVPUSH ONE (22:58)
[2023-08-07] MEDS ORDERED: Sodium Chloride 0.9% 500 ML IV SCH (23:45)
[2023-08-08 01:19] LABS: ANION GAP 15.6 mEq/L (7-13); CALCIUM 8.9 mg/dL (8.5-10.1); CREATININE 0.92 mg/dL (0.55-1.02); EST CRCL DRUG DOSING (CG) 48.27 mL/min; POTASSIUM,K 3.6 mmol/L (3.5-5.1)
== END 2023-08-08 01:43 | disposition home or self-care (01) ==
LOC: DL.ED 16:04
DX: E11.65 Type 2 diabetes mellitus with hyperglycemia (principal); N39.0 Urinary tract infection, site not specified; E03.9 Hypothyroidism, unspecified; E66.9 Obesity, unspecified; Z68.24 Body mass index [BMI] 24.0-24.9, adult; Z88.1 Allergy status to other antibiotic agents; Z88.8 Allergy status to other drugs, medicaments and biological substances; Z79.4 Long term (current) use of insulin; Z79.899 Other long term (current) drug therapy
CPT/HCPCS: 36415; 80048; 80053; 81001; 82009; 82800; 82803; 82947; 83690; 83735; 85025; 87086; 87088; 87186; 96361; 96374; 99284; 99284-25; J0696; J1815-GY; J7040

== ENCOUNTER 2023-10-30 17:53 | Emergency (ER) | payer MEDICARE, MEDICAID ==
[2023-10-30] MEDS: Sodium Chloride 0.9% 1,000 ML IV ONE (21:32)
[2023-10-30 21:37] LABS: O2 DELIVERY DEVICE ROOM AIR
[2023-10-30 21:39] LABS: BASOPHILS PERCENT AUTO 0.4 % (0.0-1.0); EOSINOPHILS PERCENT AUTO 1.4 % (1.0-3.0); HEMATOCRIT 38.5 % (37.0-47.0); HEMOGLOBIN 12.5 g/dL (12.0-16.0); MEAN CORPUSCULAR HEMOGLOBIN 31.5 pg (27.0-34.0); MEAN CORPUSCULAR HGB CONC 32.5 g/dL (33.0-35.0); MONOCYTES PERCENT AUTO 11.3 % (2-8); NEUTROPHILS PERCENT AUTO 52.9 % (42.2-75.2); PLATELET COUNT,PLT 302 10^3/uL (150-450); RED BLOOD CELL COUNT 3.97 10^6/uL (4.2-5.4)
[2023-10-30] MEDS: Sodium Chloride 0.9% 10 ML Syringe FLUSH PRN (21:58)
[2023-10-30 22:03] LABS: A/G RATIO 0.8; ALANINE AMINOTRANSFERASE,ALT 23 U/L (14-59); ALBUMIN 3.5 g/dL (3.4-5.0); ALKALINE PHOSPHATASE 294 U/L (46-116); ANION GAP 23.9 mEq/L (7-13); ASPARTATE AMNIOTRANSFERASE,AST 14 U/L (15-37); BILIRUBIN TOTAL 0.6 mg/dL (0.2-1.0); BLOOD UREA NITROGEN,BUN 22 mg/dL (7-18); BUN/CREATININE RATIO 21.4 (No establ ref range); CALCIUM 9.3 mg/dL (8.5-10.1); CARBON DIOXIDE,CO2 19 mmol/L (21-32); CHLORIDE,CL 93 mmol/L (98-107); CREATININE 1.03 mg/dL (0.55-1.02); EST CRCL DRUG DOSING (CG) 41.38 mL/min; MAGNESIUM 2.1 mg/dL (1.8-2.4); POTASSIUM,K 4.9 mmol/L (3.5-5.1); PROTEIN TOTAL,TP 7.9 g/dL (6.4-8.2); SODIUM,NA 131 mmol/L (136-145)
[2023-10-30 22:11] LABS: BASE EXCESS VENOUS -8 mmol/L ((-2)-(+3)); BICARBONATE,VENOUS 18 mmol/L (22-29); O2 SATURATION VENOUS 84 % (60-80); PCO2 VENOUS 35 mmHg (41-51); PH,VENOUS 7.32 pH (7.32-7.43); PO2 VENOUS 52 mmHg (35-42)
[2023-10-30 22:14] LABS: ESTIMATED GFR 57 mL/min (>=60); GLUCOSE RANDOM 562 mg/dL (70-99); KETONES,BLOOD MODERATE-40 mg/dL
[2023-10-30] MEDS ORDERED: 50% Dextrose in Water 50 ML Syringe IVPUSH PRN (22:22)
[2023-10-30] MEDS ORDERED: Glucagon,Human Recombinant 1 MG Vial IM PRN (22:22)
[2023-10-30] MEDS: Insulin Regular, Human 100 Units/ML 3 ML Vial IV ONE (22:27)
[2023-10-30 23:07] VITALS: BP 95/68; PULSE 74
== END 2023-10-30 23:07 | disposition home health service (06) ==
LOC: DL.ED 17:53
DX: E11.65 Type 2 diabetes mellitus with hyperglycemia (principal); E11.40 Type 2 diabetes mellitus with diabetic neuropathy, unspecified; E03.9 Hypothyroidism, unspecified; G30.9 Alzheimer's disease, unspecified; F02.80 Dementia in other diseases classified elsewhere, unspecified severity, without behavioral disturbance, psychotic disturbance, mood disturbance, and anxiety; M81.0 Age-related osteoporosis without current pathological fracture; Z88.8 Allergy status to other drugs, medicaments and biological substances; Z79.899 Other long term (current) drug therapy; Z86.19 Personal history of other infectious and parasitic diseases; Z79.4 Long term (current) use of insulin
CPT/HCPCS: 36415; 80053; 82009; 82803; 82947; 83735; 85025; 99283; 99284; J1815; J7030; J3490

== ENCOUNTER 2023-11-04 21:33 | Emergency (ER) | payer MEDICARE, MEDICAID ==
[2023-11-04] MEDS ORDERED: Glucagon,Human Recombinant 1 MG Vial IM PRN (22:39)
[2023-11-04] MEDS ORDERED: 50% Dextrose in Water 50 ML Syringe IVPUSH PRN (22:39)
[2023-11-04 22:44] VITALS: BP 123/70; PULSE 86
[2023-11-04] MEDS: Insulin Lispro 100 Units/ML 3 ML Vial SUBCUT ONE ×2 (22:51→23:35)
[2023-11-04 23:10] LABS: BASOPHILS PERCENT AUTO 0.4 % (0.0-1.0); HEMATOCRIT 35.7 % (37.0-47.0); HEMOGLOBIN 11.3 g/dL (12.0-16.0); LYMPHOCYTES PERCENT AUTO 32.6 % (20.5-50.1); MEAN CORPUSCULAR HEMOGLOBIN 31.2 pg (27.0-34.0); MEAN CORPUSCULAR HGB CONC 31.7 g/dL (33.0-35.0); MEAN CORPUSCULAR VOLUME 98.6 fL (80-100); MONOCYTES PERCENT AUTO 11.8 % (2-8); NEUTROPHILS PERCENT AUTO 53.2 % (42.2-75.2); PLATELET COUNT,PLT 287 10^3/uL (150-450); RED BLOOD CELL COUNT 3.62 10^6/uL (4.2-5.4); WHITE BLOOD CELL COUNT,WBC 6.8 10^3/uL (5.0-10.0)
[2023-11-04 23:29] LABS: ALBUMIN 3.1 g/dL (3.4-5.0); ANION GAP 17.1 mEq/L (7-13); BILIRUBIN TOTAL 0.5 mg/dL (0.2-1.0); CALCIUM 8.7 mg/dL (8.5-10.1); CREATININE 0.89 mg/dL (0.55-1.02); EST CRCL DRUG DOSING (CG) 47.89 mL/min; POTASSIUM,K 4.1 mmol/L (3.5-5.1); PROTEIN TOTAL,TP 7.4 g/dL (6.4-8.2)
[2023-11-04 23:30] LABS: A/G RATIO 0.72
== END 2023-11-05 00:44 ==
LOC: DL.ED 21:33
DX: E11.65 Type 2 diabetes mellitus with hyperglycemia (principal); E66.9 Obesity, unspecified; E03.9 Hypothyroidism, unspecified; Z88.8 Allergy status to other drugs, medicaments and biological substances; Z68.24 Body mass index [BMI] 24.0-24.9, adult; Z79.4 Long term (current) use of insulin; Z79.899 Other long term (current) drug therapy; Z90.710 Acquired absence of both cervix and uterus
CPT/HCPCS: 36415; 80053; 82009; 82947; 85025; 99284; J1815

== ENCOUNTER 2023-11-06 03:51 | Emergency (ER) | payer MEDICAID, MEDICARE ==
[2023-11-06] MEDS: Insulin Lispro 100 Units/ML 3 ML Vial SUBCUT ONE ×2 (03:48→04:38)
[~2023-11-06 03:51] MED LIST changes: +50% Dextrose in Water 50 ML Syringe IVPUSH PRN; -Acetaminophen 325 MG Tab PO PRN; -Acetaminophen/Codeine 300-30 MG Tab PO PRN; -Cataract Ophth Solution EYERT ONE; +Glucagon,Human Recombinant 1 MG Vial IM PRN; -Moxifloxacin 0.5% Ophth Soln 3 ML Bottle EYERT ONE; -Ondansetron 4 MG/2 ML SDV IVPUSH PRN; -Phenylephrine 10% Ophth Soln 5 ML Bot EYERT ONE; -Phenylephrine 10% Ophth Soln 5 ML Bot EYERT PRN; -Povidone-Iodine 5% Sterile Ophth Soln 30 ML Bottle EYERT ONE; -Proparacaine 0.5% Ophth Soln 15 ML Bottle EYERT ONE; -Timolol Maleate 0.5% Ophth Soln 5 ML Bottle EYERT ONE; -Tropicamide 1% Ophth Soln 15 ML Bottle EYERT ONE
[2023-11-06 03:59] VITALS: PULSE 92
[2023-11-06 05:28] VITALS: BP 103/63
== END 2023-11-06 05:34 | disposition home or self-care (01) ==
LOC: DL.ED 03:51
DX: E11.65 Type 2 diabetes mellitus with hyperglycemia (principal); E03.9 Hypothyroidism, unspecified; Z88.8 Allergy status to other drugs, medicaments and biological substances; Z88.6 Allergy status to analgesic agent; Z90.710 Acquired absence of both cervix and uterus; Z79.4 Long term (current) use of insulin; Z79.899 Other long term (current) drug therapy
CPT/HCPCS: 82947; 99283; 99285; J1815-GY

== ENCOUNTER 2023-11-20 15:33 | Emergency (ER) | payer OTHER, MEDICAID ==
[2023-11-20] MEDS ORDERED: Glucagon,Human Recombinant 1 MG Vial IM PRN (16:11)
[2023-11-20] MEDS ORDERED: 50% Dextrose in Water 50 ML Syringe IVPUSH PRN (16:11)
[2023-11-20 16:34] VITALS: BP 100/48; PULSE 104
[2023-11-20] MEDS: Sodium Chloride 0.9% 10 ML Syringe FLUSH PRN (16:47)
[2023-11-20] MEDS: Sodium Chloride 0.9% 1,000 ML IV ONE (16:47)
[2023-11-20 17:52] LABS: BASOPHILS PERCENT AUTO 0.2 % (0.0-1.0); EOSINOPHILS PERCENT AUTO 0.3 % (1.0-3.0); HEMATOCRIT 42.5 % (37.0-47.0); HEMOGLOBIN 13.4 g/dL (12.0-16.0); LYMPHOCYTES PERCENT AUTO 28.6 % (20.5-50.1); MEAN CORPUSCULAR HEMOGLOBIN 31.4 pg (27.0-34.0); MEAN CORPUSCULAR HGB CONC 31.5 g/dL (33.0-35.0); MEAN CORPUSCULAR VOLUME 99.5 fL (80-100); MONOCYTES PERCENT AUTO 9.1 % (2-8); NEUTROPHILS PERCENT AUTO 61.8 % (42.2-75.2); PLATELET COUNT,PLT 400 10^3/uL (150-450); RED BLOOD CELL COUNT 4.27 10^6/uL (4.2-5.4); WHITE BLOOD CELL COUNT,WBC 9.1 10^3/uL (5.0-10.0)
[2023-11-20 17:54] LABS: O2 DELIVERY DEVICE ROOM AIR
[2023-11-20 18:05] LABS: BICARBONATE,VENOUS 14 mmol/l (19-25); O2 SATURATION VENOUS 77.8 % (60-80); PCO2 VENOUS 39 mmHg (41-51); PH,VENOUS 7.19 (7.31-7.41); PO2 VENOUS 52 mmHg (35-42)
[2023-11-20 18:07] LABS: BASE EXCESS VENOUS -13 mmol/l ((-2)-(+3))
[2023-11-20 18:23] LABS: APPEARANCE,URINE CLEAR (CLEAR); BILIRUBIN,URINE NEGATIVE (NEGATIVE); COLOR,URINE YELLOW (YELLOW); GLUCOSE,URINE 500 (NEGATIVE); KETONES,URINE >=160 (NEGATIVE); LEUKOCYTE ESTERASE,URINE NEGATIVE (NEGATIVE); NITRITE,URINE NEGATIVE (NEGATIVE); OCCULT BLOOD,URINE NEGATIVE (NEGATIVE); PROTEIN,URINE NEGATIVE (NEGATIVE); UROBILINOGEN,URINE 0.2 mg/dL (0.2-1.0)
[2023-11-20 18:32] LABS: KETONES,BLOOD SMALL-20 mg/dL
[2023-11-20 18:36] LABS: A/G RATIO 0.6; ALANINE AMINOTRANSFERASE,ALT 17 U/L (14-59); ALBUMIN 3.4 g/dL (3.4-5.0); ALKALINE PHOSPHATASE 443 U/L (46-116); ANION GAP 25.1 mEq/L (7-13); ASPARTATE AMNIOTRANSFERASE,AST 16 U/L (15-37); BILIRUBIN TOTAL 0.6 mg/dL (0.2-1.0); BLOOD UREA NITROGEN,BUN 24 mg/dL (7-18); BUN/CREATININE RATIO 17.6 (No establ ref range); CALCIUM 9.3 mg/dL (8.5-10.1); CARBON DIOXIDE,CO2 16 mmol/L (21-32); CHLORIDE,CL 95 mmol/L (98-107); CREATININE 1.36 mg/dL (0.55-1.02); EST CRCL DRUG DOSING (CG) 31.34 mL/min; POTASSIUM,K 4.1 mmol/L (3.5-5.1); PROTEIN TOTAL,TP 8.7 g/dL (6.4-8.2); SODIUM,NA 132 mmol/L (136-145)
[2023-11-20 18:39] LABS: LACTIC ACID 2.8 mmol/L (0.4-2.0)
[2023-11-20 18:41] LABS: ESTIMATED GFR 41 mL/min (>=60); GLUCOSE RANDOM 483 mg/dL (70-99)
== END 2023-11-20 19:05 ==
LOC: DL.ED 15:33
DX: E11.65 Type 2 diabetes mellitus with hyperglycemia (principal); E87.21 Acute metabolic acidosis; E03.9 Hypothyroidism, unspecified; N17.9 Acute kidney failure, unspecified; Z88.0 Allergy status to penicillin; Z88.6 Allergy status to analgesic agent; Z88.8 Allergy status to other drugs, medicaments and biological substances; Z79.899 Other long term (current) drug therapy; Z79.4 Long term (current) use of insulin; Z90.710 Acquired absence of both cervix and uterus
CPT/HCPCS: 36415; 80053; 81003; 82009; 82803; 82947; 83605; 84145; 84484; 85025; 87040; 96360; 96361; 99284; 99285; J1815; J7030; J3490

== ENCOUNTER 2023-11-21 10:04 | Observation (INO) | payer MEDICARE, MEDICAID ==
[2023-11-21] MEDS: Glucose Gel 15 GM in 37.5 GM Tube PO ONE (10:21)
[2023-11-21] MEDS: Sodium Chloride 0.9% 10 ML Syringe FLUSH PRN (10:30)
[2023-11-21 10:32] LABS: BASOPHILS PERCENT AUTO 0.1 % (0.0-1.0); EOSINOPHILS PERCENT AUTO 0.8 % (1.0-3.0); HEMATOCRIT 41.9 % (37.0-47.0); HEMOGLOBIN 13.6 g/dL (12.0-16.0); LYMPHOCYTES PERCENT AUTO 27.7 % (20.5-50.1); MEAN CORPUSCULAR HEMOGLOBIN 31.4 pg (27.0-34.0); MEAN CORPUSCULAR HGB CONC 32.5 g/dL (33.0-35.0); MEAN CORPUSCULAR VOLUME 96.8 fL (80-100); MONOCYTES PERCENT AUTO 10.4 % (2-8); PLATELET COUNT,PLT 401 10^3/uL (150-450); RED BLOOD CELL COUNT 4.33 10^6/uL (4.2-5.4); WHITE BLOOD CELL COUNT,WBC 14.3 10^3/uL (5.0-10.0)
[2023-11-21] MEDS: 50% Dextrose in Water 50 ML Syringe IVPUSH ONE ×2 (10:32→13:06)
[2023-11-21] MEDS: Glucose Gel 15 GM in 37.5 GM Tube ONE (10:46)
[2023-11-21 10:50] LABS: A/G RATIO 0.6; ALANINE AMINOTRANSFERASE,ALT 20 U/L (14-59); ALBUMIN 3.7 g/dL (3.4-5.0); ALKALINE PHOSPHATASE 474 U/L (46-116); ANION GAP 16.8 mEq/L (7-13); ASPARTATE AMNIOTRANSFERASE,AST 15 U/L (15-37); BILIRUBIN TOTAL 0.6 mg/dL (0.2-1.0); BLOOD UREA NITROGEN,BUN 22 mg/dL (7-18); BUN/CREATININE RATIO 23.4 (No establ ref range); CALCIUM 9.9 mg/dL (8.5-10.1); CARBON DIOXIDE,CO2 24 mmol/L (21-32); CHLORIDE,CL 100 mmol/L (98-107); CREATININE 0.94 mg/dL (0.55-1.02); POTASSIUM,K 3.8 mmol/L (3.5-5.1); PROTEIN TOTAL,TP 9.4 g/dL (6.4-8.2); SODIUM,NA 137 mmol/L (136-145)
[2023-11-21] MEDS: 50% Dextrose in Water 50 ML Syringe ONE (10:50)
[2023-11-21 10:55] LABS: ESTIMATED GFR 64 mL/min (>=60); GLUCOSE RANDOM 45 mg/dL (70-99)
[2023-11-21] MEDS: Sodium Chloride 0.9% 1,000 ML IV ONE (12:06)
[2023-11-21 12:47] LABS: APPEARANCE,URINE CLEAR (CLEAR); BILIRUBIN,URINE NEGATIVE (NEGATIVE); COLOR,URINE YELLOW (YELLOW); GLUCOSE,URINE 500 (NEGATIVE); KETONES,URINE 80 (NEGATIVE); LEUKOCYTE ESTERASE,URINE NEGATIVE (NEGATIVE); NITRITE,URINE NEGATIVE (NEGATIVE); OCCULT BLOOD,URINE NEGATIVE (NEGATIVE); PH,URINE 5.5 (5.0-9.0); PROTEIN,URINE 30 (NEGATIVE); UROBILINOGEN,URINE 0.2 mg/dL (0.2-1.0)
[2023-11-21 13:04] LABS: AMORPHOUS SEDIMENT,URINE FEW /HPF (NOT SEEN); BACTERIA,URINE RARE /HPF (0-FEW/HPF); EPITHELIAL CELLS,URINE NOT SEEN /HPF (NOT SEEN); MUCUS,URINE NOT SEEN /LPF (NOT SEEN); RBC,URINE NOT SEEN /HPF (0-5); WBC,URINE NOT SEEN /HPF (0-5/HPF)
[2023-11-21] MEDS ORDERED: Bisacodyl 5 MG Tab PO PRN (15:14)
[2023-11-21] MEDS ORDERED: Ondansetron 4 MG/2 ML SDV IVPUSH PRN (15:14)
[2023-11-21] MEDS ORDERED: Acetaminophen 325 MG Tab PO PRN (15:14)
[2023-11-21] MEDS ORDERED: Docusate Sodium 100 MG Cap PO PRN (15:14)
[2023-11-21] MEDS ORDERED: Glucagon,Human Recombinant 1 MG Vial SUBCUT PRN (15:37)
[2023-11-21] MEDS ORDERED: Loperamide 2 MG Cap PO PRN (15:37)
[2023-11-21] MEDS ORDERED: Diclofenac Sodium 1% Gel 100 GM Tube TOP PRN (15:37)
[2023-11-21] MEDS ORDERED: Non-Formulary Medication 1 Each (Alendronate [Fosamax] 70 MG/75 ML Bottle) PO SCH (15:45)
[2023-11-21] MEDS: Dextrose 5%-0.45% NaCl 1,000 ML IV SCH (15:57)
[2023-11-21] MEDS: Insulin Lispro 100 Units/ML 3 ML Vial SUBCUT SCH (16:39)
[2023-11-21] MEDS: Acetaminophen 500 MG Tab PO SCH (20:41)
[2023-11-21] MEDS: Donepezil 10 MG Tab PO SCH (20:42)
[2023-11-21] MEDS: Carboxymethylcellulose Sodium 1% Ophth Gel 0.4 ML UD EYEBOTH SCH (20:42)
[2023-11-21] MEDS: Melatonin 3 MG Tab PO SCH (20:42)
[2023-11-21] MEDS: Insulin Glarg,Human.Rec.Analog 100 Unit/ML 10 ML Vial SUBCUT SCH (20:44)
[2023-11-21] MEDS ORDERED: BENZTROPINE MESYLATE 1 MG PO SCH (21:00)
[2023-11-22] MEDS: Levothyroxine 112 MCG Tab PO SCH (05:12)
[2023-11-22 06:37] LABS: BASOPHILS PERCENT AUTO 0.4 % (0.0-1.0); EOSINOPHILS PERCENT AUTO 2.9 % (1.0-3.0); HEMATOCRIT 34.9 % (37.0-47.0); LYMPHOCYTES PERCENT AUTO 29.6 % (20.5-50.1); MEAN CORPUSCULAR HEMOGLOBIN 30.9 pg (27.0-34.0); MEAN CORPUSCULAR HGB CONC 31.5 g/dL (33.0-35.0); NEUTROPHILS PERCENT AUTO 55.1 % (42.2-75.2); PLATELET COUNT,PLT 341 10^3/uL (150-450); RED BLOOD CELL COUNT 3.56 10^6/uL (4.2-5.4); WHITE BLOOD CELL COUNT,WBC 5.6 10^3/uL (5.0-10.0)
[2023-11-22 06:58] LABS: ANION GAP 14.6 mEq/L (7-13); CALCIUM 8.3 mg/dL (8.5-10.1); CREATININE 0.81 mg/dL (0.55-1.02); EST CRCL DRUG DOSING (CG) 61.47 mL/min; POTASSIUM,K 3.6 mmol/L (3.5-5.1)
[2023-11-22 07:39] LABS: HEMOGLOBIN A1C 9.9 % (<5.7)
[2023-11-22 08:17] VITALS: BP 118/62; PULSE 83
[2023-11-22] MEDS: Lidocaine 5% 700 MG Patch TRDERM SCH (08:21)
[2023-11-22] MEDS: Enoxaparin 40 MG/0.4 ML Syringe SUBCUT SCH (08:22)
[2023-11-22] MEDS: Cholecalciferol (Vitamin D3) 25 MCG Tab PO SCH (08:23)
[2023-11-22] MEDS: DULoxetine 30 MG Cap PO SCH (08:23)
[2023-11-22] MEDS ORDERED: ARIPIPRAZOLE 10 MG PO SCH (09:00)
== END 2023-11-22 11:20 | disposition home or self-care (01) ==
LOC: DL.ED 10:04 → DL.MS 14:07 → DL.ED 14:25
PROVIDERS: ADMIT Internal Medicine; ATTEND Internal Medicine
DX: E10.649 Type 1 diabetes mellitus with hypoglycemia without coma (principal); G93.41 Metabolic encephalopathy; G30.9 Alzheimer's disease, unspecified; F02.80 Dementia in other diseases classified elsewhere, unspecified severity, without behavioral disturbance, psychotic disturbance, mood disturbance, and anxiety; E78.5 Hyperlipidemia, unspecified; E03.9 Hypothyroidism, unspecified; Z79.890 Hormone replacement therapy; Z79.899 Other long term (current) drug therapy; Z88.0 Allergy status to penicillin
CPT/HCPCS: 36415; 70450; 71045; 80048; 80053; 81001; 82947; 83036; 85025; 96361; 96372; 96374; 96376; 99223; 99239; 99284; 99285-25; A9270-GY; G0378; J1650; J1815-GY; J3490; J7030; J7042

== ENCOUNTER 2024-02-17 14:40 | Emergency (ER) | payer MEDICARE, MEDICAID ==
[2024-02-17] MEDS: 50% Dextrose in Water 50 ML Syringe IVPUSH ONE ×2 (15:18→16:34)
[2024-02-17] MEDS: Lidocaine 2% 20 ML MDV SUBCUT ONE (15:51)
[2024-02-17] MEDS: 50% Dextrose in Water 50 ML Syringe ONE (16:19)
[2024-02-17] MEDS: Diphtheria,Pertussis(Acell),Tetanus Vaccine 0.5 ML Syringe IM ONE (16:20)
[2024-02-17 16:33] VITALS: BP 97/67; PULSE 86
== END 2024-02-17 16:59 | disposition home or self-care (01) ==
LOC: DL.ED 14:40
DX: S61.012A Laceration without foreign body of left thumb without damage to nail, initial encounter (principal); E10.649 Type 1 diabetes mellitus with hypoglycemia without coma; E03.9 Hypothyroidism, unspecified; Z23 Encounter for immunization; Z88.0 Allergy status to penicillin; Z88.8 Allergy status to other drugs, medicaments and biological substances; Z88.6 Allergy status to analgesic agent; Z79.890 Hormone replacement therapy; Z79.899 Other long term (current) drug therapy; Z79.4 Long term (current) use of insulin; Z90.710 Acquired absence of both cervix and uterus; W01.0XXA Fall on same level from slipping, tripping and stumbling without subsequent striking against object, initial encounter; Y93.89 Activity, other specified
CPT/HCPCS: 12001; 70450; 82947; 90471; 90715; 96374; 99283; 99283-25; J3490

== ENCOUNTER 2024-07-14 16:22 | Emergency (ER) | payer OTHER, MEDICAID ==
[2024-07-14 17:44] VITALS: BP 109/59; PULSE 95
== END 2024-07-14 18:48 ==
LOC: DL.ED 16:22
DX: R09.02 Hypoxemia (principal); F03.90 Unspecified dementia, unspecified severity, without behavioral disturbance, psychotic disturbance, mood disturbance, and anxiety; E10.42 Type 1 diabetes mellitus with diabetic polyneuropathy; E03.9 Hypothyroidism, unspecified; E66.9 Obesity, unspecified; Z90.710 Acquired absence of both cervix and uterus; Z88.0 Allergy status to penicillin; Z88.8 Allergy status to other drugs, medicaments and biological substances; Z79.890 Hormone replacement therapy; Z79.4 Long term (current) use of insulin; Z79.899 Other long term (current) drug therapy
CPT/HCPCS: 82947; 99285